=== PATIENT | male | born 1935 | race Caucasian/White ===

== ENCOUNTER 2016-06-05 06:36 | Inpatient (IN) ==
[2016-06-05] MEDS ORDERED: Ipratropium/Albuterol Neb 3 ML ONE ×2 (06:43→13:38)
[2016-06-05] MEDS ORDERED: methylPREDNISolone 125 MG/2 ML VIAL IVP ONE (06:45)
[2016-06-05] MEDS: Ipratropium/Albuterol Neb 3 ML IH ONE ×2 (06:45→07:07)
[2016-06-05 06:59] LABS: Basophils % 0.1 %; Eosinophils # 0.1 K/mcL (0.0-0.6); Hematocrit 39.4 % (37.5-50.1); Immature Granulocytes % 0.2 % (0-4); Lymphocytes # 0.7 K/mcL (0.6-4.6); Mean Corpuscular Hemoglobin 30.8 pg (28.0-33.3); Mean Corpuscular Volume 93.4 fL (83.0-100.0); Mean Platelet Volume 9.4 fL (9.4-12.4); Monocytes # 0.6 K/mcL (0.0-1.3); Monocytes % 4.9 %; Neutrophils # 10.4 K/mcL (1.6-8.9); Platelet Count 183 K/mcL (140-400); Red Blood Count 4.22 M/mcL (4.19-5.50); Red Cell Distribution Width 14.6 % (11.5-14.5); Segmented Neutrophils % 87.8 %
[2016-06-05 07:11] LABS: BUN/Creatinine Ratio 16 (6-26); Blood Urea Nitrogen 14 mg/dL (8-26); Calcium 8.3 mg/dL (8.6-10.8); Carbon Dioxide 22 mEq/L (19-29); Chloride 104 mEq/L (98-109); Glucose 103 mg/dL (70-99); Osmolality,Calculated 285 (280-300); Sodium 137 mEq/L (136-145); eGFR For African Americans > 60 (> 60); eGFR For Non-African Americans > 60 (> 60)
[2016-06-05] MEDS ORDERED: Levofloxacin 750 MG/150 ML 750 MG/150 ML BAG IVPB ONE (07:23)
[2016-06-05] MEDS ORDERED: 0.9 % Sodium Chloride 2,000 ML IV ONE (07:23)
[2016-06-05] MEDS ORDERED: Piperacillin/Tazobactam 3.375 GM in D5% in Water (Mini-Bag+) 100 ML IVPB ONE (07:23)
--- NOTE | 2016-06-05 07:29 | Emergency Department Note ---
Disposition Clinical Impression: Community acquired pneumonia Sepsis Qualifiers: Sepsis type: sepsis due to unspecified organism Qualified Code(s): A41.9 - Sepsis, unspecified organism Disposition: Admitted As Inpatient Condition: Fair Referrals: Macario Yarbrough DO [Primary Care Provider] - Forms: ED Satisfaction Letter Time of Disposition: 09:38 SOB HPI - General Chief Complaint: ED Shortness of Breath/Dyspnea Stated Complaint: ROMELIA Time Seen by Provider: 06/05/16 06:43 Source: patient, family, EMS Mode of arrival: EMS Limitations: no limitations Nursing Notes Reviewed: Yes Vital Signs Reviewed: Yes - History of Present Illness Pt Subjective Complaint: shortness of breath Onset (ago): day(s) (Several days) Severity: severe Consistency/Duration: constant, gradually worsening Improves with: nothing Worsens with: exertion, coughing Known history of: COPD, recurrent pneumonia Associated symptoms: Reports: fever, cough, wheezing, sputum production Treatment prior to arrival: oxygen, bronchodilator Cough present: Yes Cough Description: Productive Cough Frequency: Persistent Sputum production: Yes - Related Data Home oxygen amount: 2 liters Home Medications Medication Instructions Recorded Confirmed Albuterol Sulfate [Albuterol 2 puff IH Q4H PRN 09/12/15 06/05/16 Inhaler] Alprazolam [Xanax 1 MG Tablet] 1 mg PO QID PRN 09/12/15 06/05/16 Atorvastatin Calcium [Lipitor] 80 mg PO DAILY 09/12/15 06/05/16 Cyanocobalamin (Vitamin B-12) 1,000 mcg PO DAILY 09/12/15 06/05/16 [Vitamin B-12] Metformin HCl [Glucophage] 1,000 mg PO BID 09/12/15 06/05/16 Oxycodone HCl/Acetaminophen 1 tab PO Q6H PRN 09/12/15 06/05/16 [Percocet 10-325 mg Tablet] Potassium Chloride [K-Tab ER] 10 meq PO BID 09/12/15 06/05/16 Tamsulosin [Flomax] 0.4 mg PO BID 09/12/15 06/05/16 Allergies Allergy/AdvReac Type Severity Reaction Status Date / Time No Known Allergies Allergy Verified 09/12/15 11:18 All systems ED: reviewed and negative except as stated. Constitutional: Reports: fever, chills ENT ED: Denies: ear pain, throat pain, congestion Cardiovascular: Reports: dyspnea on exertion. Denies: chest pain, palpitations Respiratory: Reports: cough, dyspnea, wheezes Gastrointestinal: Denies: abdominal pain, nausea, vomiting, diarrhea Genitourinary: Denies: urgency, dysuria Musculoskeletal: Denies: back pain Integumentary: Denies: rash Past Medical History - Past Medical History Attestation: Yes The following information was validated with the patient. Source: patient, old records reviewed, obtained from family, nursing notes reviewed Medical history: Reports: cancer, diabetes, hypertension Surgical history: Reports: colostomy Psychiatric history: Reports: anxiety - Social History Smoking Status: Current every day smoker Smokeless Tobacco Status: No Alcohol use: Reports: none Drug use: Reports: none Physical Exam - General Limitations: no limitations General appearance: alert, other (Looks like he does not feel well.) - Head Head exam: atraumatic, normocephalic - Eye Eye exam: Present: normal appearance, PERRL, EOMI - ENT ENT exam: mucous membranes dry, normal external ear exam - Neck Neck exam: Present: normal inspection, full ROM, trachea midline - Chest Chest inspection: Present: normal inspection, symmetric chest wall rise. Absent : tenderness - Respiratory Respiratory exam: Present: respiratory distress (Patient is tachypneic), wheezes (Scattered throughout) - Cardiovascular Cardiovascular exam: Present: normal rhythm, tachycardia, normal heart sounds - Abdominal Exam Abdominal exam: Present: soft, Non-Tender - Extremities Exam Extremities exam: Present: normal inspection, full ROM. Absent: pedal edema - Neurological Exam Neurological exam: Present: alert, oriented X3 - Psychiatric Psychiatric exam: Present: normal affect, normal mood - Skin Skin exam: Present: warm, dry. Absent: rash Course Course Narrative: I assumed care of the patient at change of shift. Patient presents with fevers , chills, cough, shortness of breath and wheezing. Although his presenting temperature was normal he has a fever now and feels very hot. He is tachycardic but his blood pressure is good. His mental status is good. Chest x -ray shows left lower lobe pneumonia. I believe this is consistent with his presentation. Given the fever and the white count and the tachycardia I believe that this represents sepsis as well. I added sepsis labs to the orders that were already in place. I ordered triple antibiotic coverage. I will arrange to admit the patient to the hospital. - Reevaluation(s) Reevaluation #1: Patient is improving with treatment. Heart rate down to 110. He looks better and he says he feels better. Time: 09:36 - Consultations Consultation #1: I discussed the case with the hospitalist, Dr. Peace. We discussed patient's presentation and treatment to this point. She has accepted the patient for admission to the hospital. Time: 09:36 Vital Signs Temperature 98.5 F 06/05/16 06:42 Pulse Rate 131 06/05/16 06:42 Respiratory Rate 25 06/05/16 06:42 Blood Pressure 107/82 06/05/16 06:42 O2 Sat by Pulse Oximetry 97 06/05/16 06:42 Temperature 100.9 F H 06/05/16 07:30 Pulse Rate 118 06/05/16 08:55 Respiratory Rate 32 06/05/16 08:55 Blood Pressure 99/76 06/05/16 08:55 O2 Sat by Pulse Oximetry 93 L 06/05/16 08:55 Oxygen Delivery Oxygen Delivery Nasal Cannula Shortness of Breath/Dyspnea - Medical Records Medical records reviewed: Yes I reviewed the patient's medical records. - Lab Data Lab results reviewed: Yes I reviewed the patient's lab results. Result diagrams: 06/05/16 06:51 06/05/16 06:51 Lab Results 06/05/16 06/05/16 06/05/16 Range/Units 06:51 06:51 06:51 WBC 11.8 H (4.3-11.1) K/mcL RBC 4.22 (4.19-5.50) M/mcL Hgb 13.0 (12.9-16.9) g/dL Hct 39.4 (37.5-50.1) % MCV 93.4 (83.0-100.0) fL MCH 30.8 (28.0-33.3) pg MCHC 33.0 (31.6-35.5) g/dL RDW 14.6 H (11.5-14.5) % Plt Count 183 (140-400) K/mcL MPV 9.4 (9.4-12.4) fL Immature Gran % 0.2 (0-4) % Seg Neutrophils % 87.8 % Lymphocytes % 6.0 % Monocytes % 4.9 % Eosinophils % 1.0 % Basophils % 0.1 % Neutrophils # 10.4 H (1.6-8.9) K/mcL Lymphocytes # 0.7 (0.6-4.6) K/mcL Monocytes # 0.6 (0.0-1.3) K/mcL Eosinophils # 0.1 (0.0-0.6) K/mcL Basophils # 0.0 (0.0-0.2) K/mcL Platelet Estimate Normal (Normal) Sodium 137 (136-145) mEq/L Potassium 4.0 (3.5-4.5) mEq/L Chloride 104 (98-109) mEq/L Carbon Dioxide 22 (19-29) mEq/L BUN 14 (8-26) mg/dL Creatinine 0.88 (0.72-1.25) mg/dL Est GFR ( Amer) > 60 (> 60) Est GFR (Non-Af Amer) > 60 (> 60) BUN/Creatinine Ratio 16 (6-26) Glucose 103 H (70-99) mg/dL Calculated Osmolality 285 (280-300) Lactic Acid (0.5-2.2) mmol/L Calcium 8.3 L (8.6-10.8) mg/dL Total Bilirubin (0.2-1.2) mg/dL Direct Bilirubin (0.0-0.5) mg/dL Indirect Bilirubin (0.0-1.2) mg/dL AST (5-34) Units/L ALT (0-55) Units/L Alkaline Phosphatase (38-126) Units/L Troponin I (0-0.03) ng/mL B-Natriuretic Peptide 63 (0-100) pg/mL Serum Total Protein (6.0-8.3) g/dL Albumin (3.5-5.0) g/dL Globulin (2.4-3.5) g/dL Albumin/Globulin Ratio (1.1-2.2) Urine Color (Yellow) Urine Clarity (Clear) Urine pH (5.0-8.0) pH Units Ur Specific [place] (1.010-1.025) Urine Protein (Neg-Trace) mg/dL Urine Glucose (UA) (Normal) mg/dL Urine Ketones (Negative) mg/dL Urine Blood (Negative) Urine Nitrite (Negative) Urine Bilirubin (Negative) Urine Urobilinogen (Normal) mg/dL Ur Leukocyte Esterase (Negative) Ur Culture Indicated? (NO) 06/05/16 06/05/16 06/05/16 Range/Units 08:00 08:00 08:00 WBC (4.3-11.1) K/mcL RBC (4.19-5.50) M/mcL Hgb (12.9-16.9) g/dL Hct (37.5-50.1) % MCV (83.0-100.0) fL MCH (28.0-33.3) pg MCHC (31.6-35.5) g/dL RDW (11.5-14.5) % Plt Count (140-400) K/mcL MPV (9.4-12.4) fL Immature Gran % (0-4) % Seg Neutrophils % % Lymphocytes % % Monocytes % % Eosinophils % % Basophils % % Neutrophils # (1.6-8.9) K/mcL Lymphocytes # (0.6-4.6) K/mcL Monocytes # (0.0-1.3) K/mcL Eosinophils # (0.0-0.6) K/mcL Basophils # (0.0-0.2) K/mcL Platelet Estimate (Normal) Sodium (136-145) mEq/L Potassium (3.5-4.5) mEq/L Chloride (98-109) mEq/L Carbon Dioxide (19-29) mEq/L BUN (8-26) mg/dL Creatinine (0.72-1.25) mg/dL Est GFR ( Amer) (> 60) Est GFR (Non-Af Amer) (> 60) BUN/Creatinine Ratio (6-26) Glucose (70-99) mg/dL Calculated Osmolality (280-300) Lactic Acid 2.1 (0.5-2.2) mmol/L Calcium (8.6-10.8) mg/dL Total Bilirubin 0.6 (0.2-1.2) mg/dL Direct Bilirubin 0.3 (0.0-0.5) mg/dL Indirect Bilirubin 0.3 (0.0-1.2) mg/dL AST 19 (5-34) Units/L ALT 15 (0-55) Units/L Alkaline Phosphatase 48 (38-126) Units/L Troponin I 0.03 (0-0.03) ng/mL B-Natriuretic Peptide (0-100) pg/mL Serum Total Protein 6.9 (6.0-8.3) g/dL Albumin 3.6 (3.5-5.0) g/dL Globulin 3.3 (2.4-3.5) g/dL Albumin/Globulin Ratio 1.1 (1.1-2.2) Urine Color (Yellow) Urine Clarity (Clear) Urine pH (5.0-8.0) pH Units Ur Specific [place] (1.010-1.025) Urine Protein (Neg-Trace) mg/dL Urine Glucose (UA) (Normal) mg/dL Urine Ketones (Negative) mg/dL Urine Blood (Negative) Urine Nitrite (Negative) Urine Bilirubin (Negative) Urine Urobilinogen (Normal) mg/dL Ur Leukocyte Esterase (Negative) Ur Culture Indicated? (NO) 06/05/16 Range/Units 08:12 WBC (4.3-11.1) K/mcL RBC (4.19-5.50) M/mcL Hgb (12.9-16.9) g/dL Hct (37.5-50.1) % MCV (83.0-100.0) fL MCH (28.0-33.3) pg MCHC (31.6-35.5) g/dL RDW (11.5-14.5) % Plt Count (140-400) K/mcL MPV (9.4-12.4) fL Immature Gran % (0-4) % Seg Neutrophils % % Lymphocytes % % Monocytes % % Eosinophils % % Basophils % % Neutrophils # (1.6-8.9) K/mcL Lymphocytes # (0.6-4.6) K/mcL Monocytes # (0.0-1.3) K/mcL Eosinophils # (0.0-0.6) K/mcL Basophils # (0.0-0.2) K/mcL Platelet Estimate (Normal) Sodium (136-145) mEq/L Potassium (3.5-4.5) mEq/L Chloride (98-109) mEq/L Carbon Dioxide (19-29) mEq/L BUN (8-26) mg/dL Creatinine (0.72-1.25) mg/dL Est GFR ( Amer) (> 60) Est GFR (Non-Af Amer) (> 60) BUN/Creatinine Ratio (6-26) Glucose (70-99) mg/dL Calculated Osmolality (280-300) Lactic Acid (0.5-2.2) mmol/L Calcium (8.6-10.8) mg/dL Total Bilirubin (0.2-1.2) mg/dL Direct Bilirubin (0.0-0.5) mg/dL Indirect Bilirubin (0.0-1.2) mg/dL AST (5-34) Units/L ALT (0-55) Units/L Alkaline Phosphatase (38-126) Units/L Troponin I (0-0.03) ng/mL B-Natriuretic Peptide (0-100) pg/mL Serum Total Protein (6.0-8.3) g/dL Albumin (3.5-5.0) g/dL Globulin (2.4-3.5) g/dL Albumin/Globulin Ratio (1.1-2.2) Urine Color Yellow (Yellow) Urine Clarity Clear (Clear) Urine pH 6.0 (5.0-8.0) pH Units Ur Specific [place] 1.018 (1.010-1.025) Urine Protein Negative (Neg-Trace) mg/dL Urine Glucose (UA) Normal (Normal) mg/dL Urine Ketones Negative (Negative) mg/dL Urine Blood Negative (Negative) Urine Nitrite Negative (Negative) Urine Bilirubin Negative (Negative) Urine Urobilinogen Normal (Normal) mg/dL Ur Leukocyte Esterase Negative (Negative) Ur Culture Indicated? NO (NO) - Radiology Data Radiology results reviewed: Yes I reviewed the patient's radiology results. - EKG Data EKG attestation: Yes I reviewed and interpreted this EKG. EKG shows normal: Reports: sinus rhythm, axis, intervals, QRS complexes, ST-T waves Rate: Reports: tachycardia Interpretation: Reports: other (Sinus tachycardia without evidence of ischemic changes.)
[2016-06-05 07:47] LABS: Platelet Estimate Normal (Normal)
[2016-06-05] MEDS ORDERED: Vancomycin (wt based) 1,000 MG VIAL IV SCH (08:00)
[2016-06-05] MEDS ORDERED: Vancomycin 1,250 MG in D5% in Water 250 ML IVPB ONE (08:00)
[2016-06-05 08:21] LABS: Albumin 3.6 g/dL (3.5-5.0); Albumin/Globulin Ratio 1.1 (1.1-2.2); Bilirubin,Direct 0.3 mg/dL (0.0-0.5); Bilirubin,Indirect 0.3 mg/dL (0.0-1.2); Bilirubin,Total 0.6 mg/dL (0.2-1.2); Globulin 3.3 g/dL (2.4-3.5); Total Protein 6.9 g/dL (6.0-8.3)
[2016-06-05 08:23] LABS: Bilirubin,Urine Negative (Negative); Blood,Urine Negative (Negative); Clarity,Urine Clear (Clear); Color,Urine Yellow (Yellow); Glucose,Urine (UA) Normal (Normal); Ketones,Urine Negative (Negative); Leukocyte Esterase,Urine Negative (Negative); Nitrite,Urine Negative (Negative); Protein,Urine Negative (Neg-Trace); Specific Gravity,Urine 1.018 (1.010-1.025); Urobilinogen,Urine Normal (Normal)
[2016-06-05] MEDS ORDERED: Mag Hydrox/Al Hydrox/Simeth 30 ML UDC PO PRN (12:29)
[2016-06-05] MEDS ORDERED: Naloxone 0.4 MG/ML INJ IVP PRN (12:29)
[2016-06-05] MEDS ORDERED: *HR* HYDROcodone/Acet 5/325 mg TABLET PO PRN (12:29)
[2016-06-05] MEDS ORDERED: Ondansetron 4 MG/2 ML VIAL IVP PRN (12:29)
[2016-06-05] MEDS ORDERED: Acetaminophen 325 MG TABLET PO PRN (12:29)
[2016-06-05] MEDS ORDERED: MOM Conc 10 ML UD.LIQ PO PRN (12:29)
[2016-06-05] MEDS ORDERED: GuaiFENesin Liq 200 MG/10 ML UDC PO PRN (12:32)
[2016-06-05] MEDS ORDERED: Albuterol 2.5 MG/3 ML NEBULIZER IH PRN (12:34)
[2016-06-05] MEDS ORDERED: Dextrose Gel 15 GM PO PRN ×2 (12:37)
[2016-06-05] MEDS ORDERED: *HR* Dextrose 50 % in Water (Syg) 50 ML SYRINGE IVP PRN (12:37)
[2016-06-05] MEDS ORDERED: D5% in Water 1,000 ML IV PRN (12:37)
--- NOTE | 2016-06-05 12:45 | Internal Med History&Physical ---
<Maya Ny - Last Filed: 06/05/16 19:05> Date of Encounter: 06/05/16 Time of Encounter: 12:05 Assessment and Plan (1) Sepsis Current visit: Yes Status: Acute Pt arrived with fever since last pm, tachycardia, rate 137 initially, however has slowed to low 100s, and CAP. Pt has received triple antibiotic coverage in ED and IV fluids. Pt is afebrile during exam. Blood cultures and lactic were drawn in the ED and are pending. Gentle hydration 0.9NS Levaquin 750mg IV daily 02 titrate for sats > 92% Monitor labs Monitor VS q4h Qualifiers: Sepsis type: sepsis due to unspecified organism Qualified Code(s): A41.9 - Sepsis, unspecified organism (2) Community acquired pneumonia Current visit: Yes Status: Acute Pt was initially diagnosed with pneumonia 2 mos ago and feels that he has never fully recovered. Todays chest xray shows persistant R midlung opacification and is unchanged from previous, and new LLL infiltrate. Pt has felt weak , fatigued , and had a poor appetite for the last month. Pt has intermittent cough with scant production of green/yellow sputum. He denies fever prior to last night and denies n/v/d, chest pain or dyspnea. Inspiratory and expiratory wheezing is heard in all ant and post lung almaraz. Pt states that he did have a flu vaccine and a pneumonia vaccine about 2 mos ago. He still smokes 1 1/2 PPD. Pt traveled to [facility] within the last week to 10 days, will check urine for legionella and strep pneumo. Plan as above Duoneb q4h Albuterol q2h prn Guiafenesin prn Continuous pulse ox Continuous telemetry (3) Acute respiratory failure with hypoxia Current visit: Yes Status: Acute PT has required 02 at 5L to maintain sats. Will continue to monitor and attempt to wean. Continuous pulse oximetry (4) Diabetes mellitus Current visit: Yes Status: Acute A1c 5.9% last September. Pt takes Glucophage daily and appears to have good control of his blood sugars. A1c Accucheck achs Sliding scale insulin coverage Qualifiers: Diabetes mellitus type: type 2 Diabetes mellitus complication status: without complication Diabetes mellitus nursing home insulin use: without nursing home use Qualified Code(s): E11.9 - Type 2 diabetes mellitus without complications (5) Generalized weakness Current visit: No Status: Acute Fall precautions PT/OT (6) COPD (chronic obstructive pulmonary disease) Current visit: No Status: Chronic Plan as above Qualifiers: COPD type: COPD with acute lower respiratory infection Qualified Code(s): J44.0 - Chronic obstructive pulmonary disease with acute lower respiratory infection (7) Tobacco abuse Current visit: Yes Status: Acute Internal Medicine - H&P: HPI Chief complaint: Pneumonia Admitted From: Home Plans for Post Hospital Care: Home History of present illness: Mr. Arvizu is a 80 year old male with a recent history of pneumonia, also of COPD, DM, lung cancer, colon cancer, and diastolic heart failure. He was diagnosed with pneumonia about 2 mos ago and states that he has never fully recovered. He lives at home alone and is very independent, however, has felt fatigued, weak, and had a poor appetite for the last month. He still smokes 1.5 packs of cigarettes daily. He denies fever until last pm and today and reports an intermittent cough with scant amount of sputum, either clear or yellow/ green. He denies n/v/d, abd pain, chest pain or back pain. Today he presents with fever of 100.9, tachycardia, stable blood pressure, and new LLL infiltrate , so the diagnosis of sepsis was made by ED physician. His EKG shows sinus tach and he maintains his sats around 95% on 5L . Past Med Surg Social Fam HX - Past Medical History Medical history: cancer, diabetes, hypertension Psychiatric history: anxiety - Past Surgical History Surgical History: colostomy - Social History Smoking Status: Current every day smoker Smokeless Tobacco Status: No Alcohol use: none Drug use: none - Family History Mother Living Status: Hx Family Cardiac Disorders: Yes Internal Medicine - H&P: Meds Albuterol Sulfate [Albuterol Inhaler] 2 puff IH Q4H PRN 09/12/15 [History] Alprazolam [Xanax 1 MG Tablet] 1 mg PO QID PRN 09/12/15 [History] Atorvastatin Calcium [Lipitor] 80 mg PO DAILY 09/12/15 [History] Cyanocobalamin (Vitamin B-12) [Vitamin B-12] 1,000 mcg PO DAILY 09/12/15 [ History] Metformin HCl [Glucophage] 1,000 mg PO BID 09/12/15 [History] Oxycodone HCl/Acetaminophen [Percocet 10-325 mg Tablet] 1 tab PO Q6H PRN [History] Potassium Chloride [K-Tab ER] 10 meq PO BID 09/12/15 [History] Tamsulosin [Flomax] 0.4 mg PO BID 09/12/15 [History] Allergies No Known Allergies Allergy (Verified 09/12/15 11:18) All Systems PM: A 10-system review of systems was performed and is negative for pertinent findings except as documented above in the HPI. - Constitutional Constitutional: fatigue, fever(s), weakness, no chills, no excessive sweating, no falls, no lethargy, no night sweats, no weight loss - Cardiovascular Cardiovascular ROS IM: no chest pain, no diaphoresis, no dyspnea on exertion, no edema, no lightheadedness - Respiratory Respiratory: cough, wheezing, chest congestion, no pain on inspiration, no excessive phlegm production, no pain with cough - Gastrointestinal Gastrointestinal: no abdominal pain, no diarrhea, no nausea, no vomiting - Musculoskeletal Musculoskeletal ROS IM: no back pain, no muscle cramps, no muscle weakness - Constitutional Vitals: Temp Pulse Resp BP Pulse Ox 100.9 F H 104 30 129/70 95 06/05/16 07:30 06/05/16 11:14 06/05/16 11:14 06/05/16 11:14 06/05/16 11:14 General appearance: Present: cooperative, A&O X 3, pleasant, no acute distress, answers questions appropriately - Head Head exam: Present: normal inspection - Eye Eye exam: Present: conjuntiva pink - ENT ENT exam: Present: mucous membranes moist - Neck Neck exam general surgery: Absent: lymphadenopathy, tenderness - Respiratory Respiratory exam: Present: wheezes. Absent: chest wall tenderness - Expanded Respiratory Exam Location: wheezes: Left, Right, Upper, Lower - Cardiovascular Cardiovascular exam: Present: RRR, +S1, +S2 - GI/Abdominal GI/Abdominal exam: Present: hyperactive bowel sounds Additional comments: Colostomy LLQ. Due to cancer 40+ years ago. - Extremities Exam Extremities exam: Present: full ROM, normal capillary refill, normal inspection , warm, radial pulses palpable and symetrical. Absent: pedal edema, tenderness - Neurological Exam Neurological exam: Present: alert, oriented X3, no focal deficits Internal Med - H&P Results - Labs CBC & Chem 7: 06/05/16 06:51 06/05/16 06:51 Labs: Short CBC 06/05/16 Range/Units 06:51 WBC 11.8 H (4.3-11.1) K/mcL Hgb 13.0 (12.9-16.9) g/dL Hct 39.4 (37.5-50.1) % Plt Count 183 (140-400) K/mcL Neutrophils # 10.4 H (1.6-8.9) K/mcL BMP 06/05/16 06:51 Sodium 137 Potassium 4.0 Chloride 104 Carbon Dioxide 22 BUN 14 Creatinine 0.88 Glucose 103 H Calcium 8.3 L Cardiac Enzymes 06/05/16 Range/Units 08:00 Troponin I 0.03 (0-0.03) ng/mL Liver Function 06/05/16 Range/Units 08:00 Total Bilirubin 0.6 (0.2-1.2) mg/dL Direct Bilirubin 0.3 (0.0-0.5) mg/dL AST 19 (5-34) Units/L ALT 15 (0-55) Units/L Alkaline Phosphatase 48 (38-126) Units/L Albumin 3.6 (3.5-5.0) g/dL Urine 06/05/16 Range/Units 08:12 Urine Color Yellow (Yellow) Urine Clarity Clear (Clear) Urine pH 6.0 (5.0-8.0) pH Units Ur Specific [place] 1.018 (1.010-1.025) Urine Protein Negative (Neg-Trace) mg/dL Urine Glucose (UA) Normal (Normal) mg/dL - EKG Data Prior EKG available for review: yes When compared to previous EKG: there is no significant change EKG comments: 06/05/16 12:48 Sinus tachycardia, rate 137 AL int 149 QRS 104 QT 299 QTc 379 - Impressions ITS Impressions Chest X-Ray 06/05/16 06:43 IMPRESSION: New left lower lobe infiltrate possibly representing pneumonia D/ / Donte Goldsmith MD / Donte Goldsmith MD Interpreting Provider: Donte Goldsmith MD <Tamra Winslow - Last Filed: 06/06/16 07:30> Date of Encounter: 06/06/16 Internal Medicine - H&P: HPI History of present illness: Mr. Arvizu is a 80 year old male All Systems PM: A 10-system review of systems was performed and is negative for pertinent findings except as documented above in the HPI. - Constitutional Vitals: Temp Pulse Resp BP Pulse Ox 97.9 F 107 22 137/78 93 L 06/06/16 04:34 06/06/16 04:34 06/06/16 04:34 06/06/16 04:34 06/06/16 04:34 Internal Med - H&P Results - Labs CBC & Chem 7: 06/06/16 05:34 06/06/16 05:34 Labs: Short CBC 06/06/16 Range/Units 05:34 WBC 10.4 (4.3-11.1) K/mcL Hgb 11.2 L D (12.9-16.9) g/dL Hct 35.1 L (37.5-50.1) % Plt Count 171 (140-400) K/mcL BMP 06/06/16 05:34 Sodium 141 Potassium 3.5 Chloride 111 H Carbon Dioxide 19 BUN 16 Creatinine 0.81 Glucose 111 H Calcium 8.0 L - Attending Attestation I examined this patient and reviewed laboratory, imaging and all diagnostic data on 06/05/16. My medical decision-making was reviewed with KADEN Ny. I agree with the documented findings, disposition and treatment plan as described above. 80-year-old male with pmh DM, lung cancer, colon cancer, and diastolic heart failure. He presented with shortness of breath and productive cough. In our ED, he was hypoxemic, tachycardic and tachypneic. WBC was 11.8. He was placed in 5 L of oxygen via nasal cannula. Chest x-ray showed left lower lobe pneumonia. He was admitted with sepsis source PNA. continue IV levaquin and IV fluids. CT chest ordered. blood cultures pending.
[2016-06-05 13:02] LABS: Hemoglobin A1C 5.8 %
[2016-06-05] MEDS ORDERED: D5% in Water 1,000 ML IVC PRN (13:21)
[2016-06-05] MEDS ORDERED: Ipratropium/Albuterol Neb 3 ML IH ONE (13:34)
[2016-06-05] MEDS: 0.9 % Sodium Chloride 1,000 ML IVC SCH (13:40)
[2016-06-05] MEDS: Nicotine 14 MG PATCH.TD24 TD SCH (15:20)
[2016-06-05] MEDS: Budesonide Neb 0.5 MG/2 ML IH SCH ×2 (16:30→20:07)
[2016-06-05] MEDS: Ipratropium/Albuterol Neb 3 ML IH SCH ×3 (16:32→23:47)
[2016-06-05] MEDS: Insulin LISPRO 300 UNITS/3 ML VIAL SQ SCH ×2 (17:05→21:08)
--- NOTE | 2016-06-05 20:33 | Electrocardiograph Report ---
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
[2016-06-05] MEDS: ALPRAZolam 1 MG TABLET PO PRN (21:07)
[2016-06-06] MEDS: Ipratropium/Albuterol Neb 3 ML IH SCH ×3 (04:19→10:55)
[2016-06-06 06:29] LABS: Hematocrit 35.1 % (37.5-50.1); Mean Corpuscular HGB Conc 31.9 g/dL (31.6-35.5); Mean Corpuscular Hemoglobin 30.5 pg (28.0-33.3); Mean Corpuscular Volume 95.6 fL (83.0-100.0); Mean Platelet Volume 9.5 fL (9.4-12.4); Platelet Count 171 K/mcL (140-400); Red Blood Count 3.67 M/mcL (4.19-5.50); Red Cell Distribution Width 14.9 % (11.5-14.5)
[2016-06-06 06:31] LABS: BUN/Creatinine Ratio 20 (6-26); Blood Urea Nitrogen 16 mg/dL (8-26); Carbon Dioxide 19 mEq/L (19-29); Chloride 111 mEq/L (98-109); Glucose 111 mg/dL (70-99); Osmolality,Calculated 294 (280-300); Potassium 3.5 mEq/L (3.5-4.5); Sodium 141 mEq/L (136-145); eGFR For African Americans > 60 (> 60); eGFR For Non-African Americans > 60 (> 60)
[2016-06-06] MEDS: 0.9 % Sodium Chloride 1,000 ML IVC SCH (06:32)
[2016-06-06 06:42] LABS: Hemoglobin 11.2 g/dL (12.9-16.9)
[2016-06-06] MEDS: Budesonide Neb 0.5 MG/2 ML IH SCH ×2 (07:35→20:42)
[2016-06-06] MEDS: Insulin LISPRO 300 UNITS/3 ML VIAL SQ SCH ×4 (08:01→21:40)
[2016-06-06] MEDS: Cyanocobalamin (B-12) 1,000 MCG TABLET PO SCH (08:11)
[2016-06-06] MEDS: ALPRAZolam 1 MG TABLET PO PRN ×2 (08:11→21:43)
[2016-06-06] MEDS: Nicotine 14 MG PATCH.TD24 TD SCH (08:11)
[2016-06-06] MEDS: Levofloxacin 750 MG/150 ML 750 MG/150 ML BAG IVPB SCH (08:11)
[2016-06-06 08:36] LABS: Anisocytosis 1+ (Not Present); Lymphocytes # 1.3 K/mcL (0.6-4.6); Monocytes # 0.4 K/mcL (0.0-1.3); Neutrophils # 8.7 K/mcL (1.6-8.9); Platelet Estimate Normal (Normal)
[2016-06-06 08:37] LABS: Microcytosis Present (Not Present)
--- NOTE | 2016-06-06 09:45 | Internal Med Progress Note ---
<Donte Rasmussen - Last Filed: 06/06/16 09:42> Date of Encounter: 06/06/16 Time of Encounter: 09:43 - Assessment and plan (1) Acute respiratory failure with hypoxia Current Visit: Yes Status: Acute Assessment and plan: Patient is requiring 2 L of oxygen at this time. Normally only uses oxygen at night. Likely related to his pneumonia and previous history of lung cancer with radiation treatment and scarring, however the patient is tachycardic, has history of malignancy, presented with shortness of breath, and recently had a long distance car ride so pulmonary embolism cannot be excluded this time. We will obtain a CTA. (2) Sepsis Current Visit: Yes Status: Acute Assessment and plan: Patient has leukocytosis and tachycardia on presentation with pneumonia source. Initial lactate was negative. Blood cultures, strep and Legionella antigen pending. On antibiotics with Levaquin. Qualifiers: Sepsis type: sepsis due to unspecified organism Qualified Code(s): A41.9 - Sepsis, unspecified organism (3) Community acquired pneumonia Current Visit: Yes Status: Acute Assessment and plan: Agent has left lower lobe infiltrate on chest x-ray concerning for community- acquired pneumonia. White count slightly improved. Continue Levaquin. Cultures and strep and legionella antigens are pending. (4) COPD (chronic obstructive pulmonary disease) Current Visit: No Status: Chronic Assessment and plan: Does not appear to be in acute exacerbation. Continue supplemental oxygen and bronchodilators. Qualifiers: COPD type: COPD with acute lower respiratory infection Qualified Code(s): J44.0 - Chronic obstructive pulmonary disease with acute lower respiratory infection (5) Diabetes mellitus Current Visit: Yes Status: Acute Assessment and plan: Under good control. Continue sliding scale insulin. Qualifiers: Diabetes mellitus type: type 2 Diabetes mellitus complication status: without complication Diabetes mellitus chcf insulin use: without chcf use Qualified Code(s): E11.9 - Type 2 diabetes mellitus without complications (6) Lung cancer, middle lobe Current Visit: No Status: Chronic Assessment and plan: Apparently in remission. Patient follows at [facility]. Patient sees an oncologist every 3 months and his CAT scan at this time. Was treated with chemotherapy and radiation in the past. (7) DVT prophylaxis Current Visit: Yes Status: Acute Assessment and plan: Lovenox 30 mg subcutaneous daily - Subjective Interval history: Patient seen and examined at bedside. Patient states he feels better. He feels shortness of breath and cough is improved. He denies any productive cough or hemoptysis. He denies any fever, chills, chest pain. - Constitutional Vitals: Temp Pulse Resp BP Pulse Ox 97.8 F 107 16 136/82 98 06/06/16 07:30 06/06/16 07:30 06/06/16 07:37 06/06/16 07:30 06/06/16 07:37 General appearance: Present: cooperative, A&O X 3, pleasant, no acute distress, answers questions appropriately - Respiratory Respiratory exam: Present: rhonchi (Left Lower lobe). Absent: respiratory distress, wheezes, tachypnea - Cardiovascular Cardiovascular exam: Present: RRR. Absent: gallop, rubs, systolic murmur - GI/Abdominal GI/Abdominal exam: Present: normal bowel sounds, soft. Absent: distended, tenderness - Extremities Exam Extremities exam: Absent: calf tenderness, pedal edema, tenderness - Neurological Exam Neurological exam: Present: alert, CN II-XII intact, oriented X3, no focal deficits Internal Medicine: Result - Labs CBC & Chem 7: 06/06/16 05:34 06/06/16 05:34 Labs: Short CBC 06/06/16 Range/Units 05:34 WBC 10.4 (4.3-11.1) K/mcL Hgb 11.2 L D (12.9-16.9) g/dL Hct 35.1 L (37.5-50.1) % Plt Count 171 (140-400) K/mcL Neutrophils # 8.7 (1.6-8.9) K/mcL BMP 06/06/16 05:34 Sodium 141 Potassium 3.5 Chloride 111 H Carbon Dioxide 19 BUN 16 Creatinine 0.81 Glucose 111 H Calcium 8.0 L Consult Discharge Plan - Plan Referrals: Macario Yarbrough DO [Primary Care Provider] - <Declan Meyers - Last Filed: 06/06/16 16:32> Date of Encounter: 06/06/16 - Assessment and plan (1) Acute respiratory failure with hypoxia Current Visit: Yes Status: Acute (2) Sepsis Current Visit: Yes Status: Acute Qualifiers: Sepsis type: sepsis due to unspecified organism Qualified Code(s): A41.9 - Sepsis, unspecified organism (3) Pneumonia Current Visit: Yes Status: Acute Qualifiers: Pneumonia type: due to unspecified organism Laterality: left Lung location: lower lobe of lung Qualified Code(s): J18.1 - Lobar pneumonia, unspecified organism (4) Diabetes mellitus Current Visit: Yes Status: Acute Qualifiers: Diabetes mellitus type: type 2 Diabetes mellitus complication status: without complication Diabetes mellitus chcf insulin use: without chcf use Qualified Code(s): E11.9 - Type 2 diabetes mellitus without complications (5) Tobacco abuse Current Visit: Yes Status: Acute (6) Tachycardia Current Visit: Yes Status: Acute (7) Hypertension Current Visit: No Status: Chronic Qualifiers: Hypertension type: essential hypertension Qualified Code(s): I10 - Essential (primary) hypertension - Constitutional Vitals: Temp Pulse Resp BP Pulse Ox 98 F 120 18 164/86 95 06/06/16 15:58 06/06/16 15:58 06/06/16 15:58 06/06/16 15:58 06/06/16 15:58 Internal Medicine: Result - Labs CBC & Chem 7: 06/06/16 05:34 06/06/16 05:34 - Attending Attestation I examined this patient and my medical decision-making was reviewed with the Resident Physician on 06/06/16. I agree with the documented findings, disposition and treatment plan as described except to the extent set forth below. Mr. Arvizu is currently admitted for acute hypoxic respiratory failure and acute CAP. He remains moderate to high risk due to potential for worsening respiratory status and sepsis. Mr. Arvizu is up in the chair. He feels OK at this time. No fever. Dyspnea feels OK while on oxygen. Appetite OK. Exam Alert. Comfortable Heart reg - tachycardic, sinus Lungs diminished but clear currently. No edema Abd soft I/P 1. Acute hypoxic resp failure 2. CAP 3. Hx lung cancer on R - follows in [place] 4. HTN Further diagnoses and plan as above.
[2016-06-06] MEDS: Levalbuterol Neb 0.63 MG/3 ML IH SCH ×2 (15:56→20:57)
[2016-06-07] MEDS: Levalbuterol Neb 0.63 MG/3 ML IH SCH ×3 (00:50→10:20)
[2016-06-07 06:05] LABS: Basophils % 0.2 %; Eosinophils # 0.1 K/mcL (0.0-0.6); Eosinophils % 0.8 %; Hematocrit 38.8 % (37.5-50.1); Hemoglobin 12.6 g/dL (12.9-16.9); Immature Granulocytes % 0.3 % (0-4); Lymphocytes # 1.1 K/mcL (0.6-4.6); Lymphocytes % 12.2 %; Mean Corpuscular HGB Conc 32.5 g/dL (31.6-35.5); Mean Corpuscular Hemoglobin 31.6 pg (28.0-33.3); Mean Corpuscular Volume 97.2 fL (83.0-100.0); Mean Platelet Volume 10.3 fL (9.4-12.4); Monocytes # 0.7 K/mcL (0.0-1.3); Monocytes % 7.9 %; Neutrophils # 7.1 K/mcL (1.6-8.9); Nucleated Red Blood Cells 0.2 /100 WBC (0); Platelet Count 157 K/mcL (140-400); Red Blood Count 3.99 M/mcL (4.19-5.50); Red Cell Distribution Width 15.5 % (11.5-14.5); Segmented Neutrophils % 78.6 %
[2016-06-07 06:11] LABS: BUN/Creatinine Ratio 15 (6-26); Blood Urea Nitrogen 12 mg/dL (8-26); Calcium 8.6 mg/dL (8.6-10.8); Carbon Dioxide 21 mEq/L (19-29); Chloride 108 mEq/L (98-109); Glucose 133 mg/dL (70-99); Osmolality,Calculated 288 (280-300); Potassium 3.8 mEq/L (3.5-4.5); Sodium 138 mEq/L (136-145); eGFR For African Americans > 60 (> 60); eGFR For Non-African Americans > 60 (> 60)
[2016-06-07] MEDS ORDERED: *HR* Enoxaparin 40 MG/0.4 ML SYRINGE SQ SCH (07:00)
[2016-06-07 07:37] VITALS: BP 133/80
[2016-06-07] MEDS: Insulin LISPRO 300 UNITS/3 ML VIAL SQ SCH (07:59)
[2016-06-07] MEDS: Cyanocobalamin (B-12) 1,000 MCG TABLET PO SCH (08:04)
[2016-06-07] MEDS: Levofloxacin 750 MG/150 ML 750 MG/150 ML BAG IVPB SCH (08:05)
[2016-06-07] MEDS: ALPRAZolam 1 MG TABLET PO PRN (08:24)
[2016-06-07] MEDS: Nicotine 14 MG PATCH.TD24 TD SCH (08:24)
--- NOTE | 2016-06-07 09:02 | Discharge Summary ---
<Donte Rasmussen - Last Filed: 06/07/16 10:33> Date of Encounter: 06/07/16 Time of Encounter: 08:59 - Discharge Diagnosis (1) Acute respiratory failure with hypoxia Priority: Primary Status: Acute (2) Sepsis Priority: Primary Status: Resolved Qualifiers: Sepsis type: sepsis due to unspecified organism Qualified Code(s): A41.9 - Sepsis, unspecified organism (3) Community acquired pneumonia Priority: Primary Status: Acute (4) COPD (chronic obstructive pulmonary disease) Priority: Secondary Status: Chronic Qualifiers: COPD type: COPD with acute lower respiratory infection Qualified Code(s): J44.0 - Chronic obstructive pulmonary disease with acute lower respiratory infection (5) Diabetes mellitus Priority: Secondary Status: Chronic Qualifiers: Diabetes mellitus type: type 2 Diabetes mellitus complication status: without complication Diabetes mellitus detention insulin use: without detention use Qualified Code(s): E11.9 - Type 2 diabetes mellitus without complications (6) Lung cancer, middle lobe Priority: Secondary Status: Chronic (7) DVT prophylaxis Priority: Secondary Status: Acute - Discharge Medications Prescriptions: Levofloxacin [Levaquin] 750 mg PO DAILY #5 tablet Home Medications: Albuterol Sulfate [Albuterol Inhaler] 2 puff IH Q4H PRN 09/12/15 [History] Alprazolam [Xanax 1 MG Tablet] 1 mg PO QID PRN 09/12/15 [History] Atorvastatin Calcium [Lipitor] 80 mg PO DAILY 09/12/15 [History] Cyanocobalamin (Vitamin B-12) [Vitamin B-12] 1,000 mcg PO DAILY 09/12/15 [ History] Metformin HCl [Glucophage] 1,000 mg PO BID 09/12/15 [History] Oxycodone HCl/Acetaminophen [Percocet 10-325 mg Tablet] 1 tab PO Q6H PRN [History] Potassium Chloride [K-Tab ER] 10 meq PO BID 09/12/15 [History] Tamsulosin [Flomax] 0.4 mg PO BID 09/12/15 [History] Levofloxacin [Levaquin] 750 mg PO DAILY #5 tablet 06/07/16 [Rx] Allergies/Adverse Reactions: Allergies No Known Allergies Allergy (Verified 09/12/15 11:18) Date of admission: 06/06/16 14:17 Primary care physician: Naveen Ballesteros Discharging clinician: Donte Rasmussen Anticipated date of discharge: 06/07/16 - Patient Status Disposition: Home, Self-Care Condition: Fair Functional capacity at discharge: independent ambulation Overall status at discharge: patient is progressing back to baseline - Discharge Instructions Instructions: Levofloxacin (By mouth), Acute Respiratory Distress Syndrome (DC) , Diabetes Mellitus Type 2 in Adults (DC), Using Oxygen at Home (DC), Using Oxygen at Home (GEN), Chronic Obstructive Pulmonary Disease (DC), Sepsis (DC), Chronic Hypertension (DC), Pneumonia (DC), 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 Please take the antibiotic, levofloxacin, and daily for the next 5 days. Please resume your home medications. Please follow-up with your oncologist at [facility] as scheduled. Please wear your oxygen Please return for any new or worsening symptoms. - Diet and Activity Activity: increase activity as tolerated, wear oxygen at all times Diet: advance to your usual diet Interval History: Patient seen and examined bedside. Patient has no complaints at this time. Patient states his breathing has returned to baseline, he denies shortness of breath. he denies cough, congestion, fever, chills. Hospital course: Mr. Arvizu is a 80 year old male with history of COPD and lung cancer in remission presented with shortness of breath and cough. Patient states for the last several days he has had mild worsening of shortness of breath and a dry cough. He also had subjective fevers and chills at home. Patient was admitted for concern for pneumonia with evidence of a left lower lobe infiltrate on chest x-ray. Patient was started on antibiotics and continued on his home medication including breathing treatments. Patient did have some tachycardia and given this and his symptoms we did obtain a CTA which was negative for pulmonary embolism but did redemonstrate his pneumonia. Patient recovered well and is stable to discharge. - Time Spent with Patient Total time spent providing and/or coordinating discharge services: - Constitutional Vitals: Temp Pulse Resp BP Pulse Ox 98 F 102 16 133/80 95 06/07/16 07:30 06/07/16 07:30 06/07/16 07:30 06/07/16 07:30 06/07/16 07:30 General appearance: Present: cooperative, A&O X 3, pleasant, no acute distress, answers questions appropriately - Respiratory Respiratory exam: Present: rhonchi (Mild, left lower lobe, improved). Absent: rales, wheezes - Cardiovascular Cardiovascular exam: Present: RRR, +S1, +S2. Absent: gallop, rubs, systolic murmur - GI/Abdominal GI/Abdominal exam: Present: normal bowel sounds, soft. Absent: distended, tenderness - Extremities Exam Extremities exam: Absent: pedal edema, tenderness - Neurological Exam Neurological exam: Present: alert, CN II-XII intact, oriented X3, no focal deficits <Declna Meyers - Last Filed: 06/07/16 17:14> Date of Encounter: 06/07/16 - Discharge Diagnosis (1) Acute respiratory failure with hypoxia Status: Acute (2) Sepsis Status: Resolved Qualifiers: Sepsis type: sepsis due to unspecified organism Qualified Code(s): A41.9 - Sepsis, unspecified organism (3) Pneumonia Priority: Secondary Status: Acute Qualifiers: Pneumonia type: due to unspecified organism Laterality: left Lung location: lower lobe of lung Qualified Code(s): J18.1 - Lobar pneumonia, unspecified organism (4) Diabetes mellitus Status: Chronic Qualifiers: Diabetes mellitus type: type 2 Diabetes mellitus complication status: without complication Diabetes mellitus detention insulin use: without detention use Qualified Code(s): E11.9 - Type 2 diabetes mellitus without complications (5) Tobacco abuse Priority: Secondary Status: Acute (6) Tachycardia Priority: Secondary Status: Acute (7) Hypertension Priority: Secondary () Status: Chronic Qualifiers: Hypertension type: essential hypertension Qualified Code(s): I10 - Essential (primary) hypertension Date of admission: 06/06/16 14:17 Primary care physician: Naveen Ballesteros Hospital course: Mr. Arvizu is a 80 year old male - Time Spent with Patient Total time spent providing and/or coordinating discharge services: 38min - Constitutional Vitals: Temp Pulse Resp BP Pulse Ox 98 F 102 18 133/80 94 L 06/07/16 07:30 06/07/16 07:30 06/07/16 10:21 06/07/16 07:30 06/07/16 10:21 - Attending Attestation I examined this patient and my medical decision-making was reviewed with the Resident Physician on 06/07/16. I agree with the documented findings, disposition and treatment plan as described except to the extent set forth below. Mr. Arvizu is feeling OK. He is up and ambulating in the [place]. Exam Alert. Up in [place] Heart reg Lungs diminished but clear Plan D/C today Follow up with PCP.
[2016-06-07] MEDS: Budesonide Neb 0.5 MG/2 ML IH SCH (10:20)
== END 2016-06-07 13:26 | disposition home or self-care (01) | DRG 871 ==
LOC: 2NENU 06:36 → EMEROO 06:36 → 2NENU 14:40
PROVIDERS: ADMIT Internal Medicine; ATTEND Internal Medicine

== ENCOUNTER 2018-01-29 00:41 | Inpatient (IN) ==
[2018-01-29] MEDS ORDERED: 0.9 % Sodium Chloride 1,000 ML ONE ×2 (00:53→01:23)
[2018-01-29] MEDS ORDERED: 0.9 % Sodium Chloride 1,000 ML IVC ONE (01:27)
[2018-01-29] MEDS: 0.9 % Sodium Chloride 1,000 ML IVC SCH ×2 (01:38→10:26)
[2018-01-29 01:48] LABS: Mean Corpuscular HGB Conc 32.4 g/dL (31.6-35.5); Mean Platelet Volume 9.4 fL (9.4-12.4)
[2018-01-29 01:49] LABS: Eosinophils % 2.1 %; Hematocrit 36.1 % (37.5-50.1); Hemoglobin 11.7 g/dL (12.9-16.9); Lymphocytes # 0.7 K/mcL (0.6-4.6); Lymphocytes % 71.1 %; Mean Corpuscular Hemoglobin 30.8 pg (28.0-33.3); Monocytes % 2.1 %; Neutrophils # 0.2 K/mcL (1.6-8.9); Platelet Count 107 K/mcL (140-400); Red Cell Distribution Width 14.4 % (11.5-14.5); Segmented Neutrophils % 23.7 %
[2018-01-29 02:02] LABS: Alanine Aminotransferase 23 Units/L (7-52); Albumin/Globulin Ratio 1.7 (1.1-2.2); Alkaline Phosphatase 43 Units/L (34-104); Aspartate Amino Transferase 16 Units/L (13-39); BUN/Creatinine Ratio 20 (6-26); Bilirubin,Direct 0.3 mg/dL (0.0-0.2); Bilirubin,Indirect 0.9 mg/dL (0.0-1.2); Bilirubin,Total 1.2 mg/dL (0.3-1.0); Blood Urea Nitrogen 27 mg/dL (8-23); Calcium 8.9 mg/dL (8.6-10.3); Carbon Dioxide 22 mEq/L (23-29); Chloride 110 mEq/L (98-107); Globulin 2.4 g/dL (2.4-3.5); Glucose 110 mg/dL (70-105); Osmolality,Calculated 296 (280-300); Potassium 4.4 mEq/L (3.5-5.1); Sodium 140 mEq/L (136-145); Total Protein 6.4 g/dL (6.4-8.9); Troponin I < 0.03 ng/mL (< 0.04); eGFR For Non-African Americans 50 (> 60)
[2018-01-29 02:24] LABS: Reactive Lymphocytes Present (Not Present)
[2018-01-29 02:25] LABS: Platelet Estimate Slight Decrease (Normal)
[2018-01-29 02:27] LABS: Bilirubin,Urine Negative (Negative); Blood,Urine Negative (Negative); Clarity,Urine Clear (Clear); Color,Urine Yellow (Yellow); Glucose,Urine (UA) Normal (Normal); Ketones,Urine Negative (Negative); Leukocyte Esterase,Urine Negative (Negative); Nitrite,Urine Negative (Negative); Protein,Urine Negative (Neg-Trace); Specific Gravity,Urine 1.017 (1.010-1.025); Urobilinogen,Urine Normal (Normal)
[2018-01-29] MEDS ORDERED: Piperacillin/Tazobactam 3.375 GM in 0.9 % Sodium Chloride Mini Bag 100 ML IVPB ONE (02:40)
[2018-01-29 02:44] LABS: INR 1.1; Prothrombin Time 11.9 Seconds (9.4-12.1)
[2018-01-29 02:47] LABS: Activated Partial Thrombo Time 29.7 Seconds (26.0-36.0)
--- NOTE | 2018-01-29 03:55 | Emergency Department Note ---
Disposition Clinical Impression: Generalized weakness, Healthcare-associated pneumonia, Leukopenia due to antineoplastic chemotherapy Sepsis Qualifiers: Sepsis type: sepsis due to unspecified organism Qualified Code(s): A41.9 - Sepsis, unspecified organism Lung cancer Qualifiers: Laterality: right Lung location: unspecified part of lung Qualified Code(s): C34.91 - Malignant neoplasm of unspecified part of right bronchus or lung Hypotension Qualifiers: Hypotension type: unspecified hypotension type Qualified Code(s): I95.9 - Hypotension, unspecified Disposition: Admitted As Inpatient Condition: Fair Referrals: Macario Yarbrough DO [Primary Care Provider] - Forms: ED Satisfaction Letter Altered Mental Status HPI - General Chief Complaint: ED Altered Mental Status Stated Complaint: hypotension Time Seen by Provider: 01/29/18 00:48 Source: patient, family, EMS Limitations: no limitations Nursing Notes Reviewed: Yes Vital Signs Reviewed: Yes - History of Present Illness HPI Narrative: Patient is an 82-year-old male who presents to the emergency department by EMS for complaint of acute onset of generalized weakness and near syncope. EMS reports that when they arrived his blood pressure was 50 systolic. Patient has a history of lung cancer in the past with recent recurrence. He just was admitted to the hospital within the past month and had an apparent ablation of part of his right lung. He also is currently on chemotherapy and he had 3 days of chemotherapy last week with her last dose on Saturday. 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 This evening he suddenly just became very weak and nearly passed out. On arrival here his systolic blood pressure was about 90 and he was tachycardic with a heart rate of around 113. He does admit to having some productive cough with some yellowish green sputum. He has not noticed any fever. He denies any chest pain or increased shortness of breath. No abdominal pain. No nausea or vomiting or diarrhea. No GI bleed symptoms. No UTI symptoms. He has had some chills since onset of the symptoms. 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[employer] Timing confirmed by: family member Pain Severity: none Pain Scale: 0 Consistency of Symptoms: waxing and waning Context: cancer Associated symptoms: Reports: denies other symptoms, chills - Related Data Home Medications Medication Instructions Recorded Confirmed ALPRAZolam [Xanax 1 MG Tablet] 1 mg PO QID PRN 09/12/15 06/05/16 Albuterol Sulfate [Albuterol 2 puff IH Q4H PRN 09/12/15 06/05/16 Inhaler] Atorvastatin Calcium [Lipitor] 80 mg PO DAILY 09/12/15 06/05/16 Cyanocobalamin (Vitamin B-12) 1,000 mcg PO DAILY 09/12/15 06/05/16 [Vitamin B-12] Metformin HCl [Glucophage] 1,000 mg PO BID 09/12/15 06/05/16 Oxycodone HCl/Acetaminophen 1 tab PO Q6H PRN 09/12/15 06/05/16 [Percocet 10-325 mg Tablet] Potassium Chloride [K-Tab ER] 10 meq PO BID 09/12/15 06/05/16 Tamsulosin [Flomax] 0.4 mg PO BID 09/12/15 06/05/16 Previous Rx's Medication Instructions Recorded Levofloxacin [Levaquin] 750 mg PO DAILY #5 tablet 06/07/16 Allergies Allergy/AdvReac Type Severity Reaction Status Date / Time No Known Allergies Allergy Verified 09/12/15 11:18 All systems ED: reviewed and negative except as stated. Constitutional: Reports: chills. Denies: fever ENT ED: Denies: ear pain, throat pain, dysphagia Cardiovascular: Reports: other (Generalized weakness with near syncope and hypotension). Denies: chest pain Respiratory: Reports: cough, sputum production Gastrointestinal: Denies: abdominal pain, nausea, vomiting, diarrhea Genitourinary: Denies: dysuria, frequency, hematuria Musculoskeletal: Denies: back pain Integumentary: Denies: rash, lesions Neurological: Denies: headache Psychiatric: Denies: anxiety, depression Endocrine: Denies: fatigue Hematological/Lymphatic: Denies: easy bleeding Allergic/Immunologic: Denies: facial swelling Past Medical History - Past Medical History Medical history: Reports: cancer, diabetes, hypertension Surgical history: Reports: colostomy Psychiatric history: Reports: anxiety - Social History Smoking Status: Current every day smoker Smokeless Tobacco Status: No Alcohol use: Reports: none Drug use: Reports: none Physical Exam - General Limitations: no limitations General appearance: alert, in no apparent distress - Head Head exam: atraumatic, normocephalic, normal inspection - Eye Eye exam: Present: normal appearance, PERRL, EOMI. Absent: scleral icterus, conjunctival injection - ENT ENT exam: normal oropharynx, mucous membranes dry, TM's normal bilaterally - Neck Neck exam: Present: normal inspection, trachea midline. Absent: tenderness, meningismus - Chest Chest inspection: Present: normal inspection, symmetric chest wall rise. Absent : tenderness - Respiratory Respiratory exam: Present: other (Decreased breath sounds bilaterally, especially on the right.). Absent: respiratory distress - Cardiovascular Cardiovascular exam: Present: normal rhythm, tachycardia - Abdominal Exam Abdominal exam: Present: soft, Non-Tender, normal bowel sounds - Extremities Exam Extremities exam: Present: normal inspection, full ROM. Absent: tenderness, pedal edema - Back Exam Back exam: Absent: CVA tenderness (R) - Neurological Exam Neurological exam: Present: alert, oriented X3. Absent: motor sensory deficit - Psychiatric Psychiatric exam: Present: normal affect, normal mood - Skin Skin exam: Present: warm, dry, intact, normal color. Absent: cyanosis, diaphoresis Course Course Narrative: Elderly male with history of lung cancer on chemotherapy presents with acute onset of generalized weakness and hypotension. He has been in the hospital within the past month. His only other complaint is some cough with greenish yellow sputum production. Some chills but no fever. Workup reveals a leukopenia with WBC of 1.0. Chest x-ray shows increased consolidation in the right lung likely related to spread of his lung cancer but underlying pneumonia is possible. Blood cultures obtained. Patient received a bolus of normal saline with some improvement in his blood pressure but continues to run around 100 systolic. Patient started on IV vancomycin and Zosyn for hospital-acquired pneumonia. I will consult the hospitalist for admission. - Consultations Consultation #1: The hospitalist, Dr. Wright, was consulted and he accepted admission of the patient. Time: 04:02 Vital Signs Temperature 98.2 F 01/29/18 00:45 Pulse Rate 106 01/29/18 00:45 Respiratory Rate 18 01/29/18 00:45 Blood Pressure 93/60 01/29/18 00:45 O2 Sat by Pulse Oximetry 95 01/29/18 00:45 Temperature 98.2 F 01/29/18 00:45 Pulse Rate 106 01/29/18 03:21 Respiratory Rate 20 01/29/18 03:21 Blood Pressure 104/57 01/29/18 03:21 O2 Sat by Pulse Oximetry 99 01/29/18 03:21 Oxygen Delivery Oxygen Delivery Nasal Cannula Altered Mental Status - Lab Data Result diagrams: 01/29/18 00:54 01/29/18 00:54 Lab Results 01/29/18 01/29/18 01/29/18 Range/Units 00:54 00:54 02:17 WBC 1.0 L* (4.3-11.1) K/mcL RBC 3.80 L (4.19-5.50) M/mcL Hgb 11.7 L (12.9-16.9) g/dL Hct 36.1 L (37.5-50.1) % MCV 95.0 (83.0-100.0) fL MCH 30.8 (28.0-33.3) pg MCHC 32.4 (31.6-35.5) g/dL RDW 14.4 (11.5-14.5) % Plt Count 107 L (140-400) K/mcL MPV 9.4 (9.4-12.4) fL Immature Gran % 0.0 (0-4) % Seg Neutrophils % 23.7 % Lymphocytes % 71.1 % Monocytes % 2.1 % Eosinophils % 2.1 % Basophils % 1.0 % Neutrophils # 0.2 L (1.6-8.9) K/mcL Lymphocytes # 0.7 (0.6-4.6) K/mcL Monocytes # 0.0 (0.0-1.3) K/mcL Eosinophils # 0.0 (0.0-0.6) K/mcL Basophils # 0.0 (0.0-0.2) K/mcL Reactive Lymphocytes Present A (Not Present) Platelet Estimate Slight Decrease L (Normal) PT (9.4-12.1) Seconds INR APTT (26.0-36.0) Seconds Sodium 140 (136-145) mEq/L Potassium 4.4 (3.5-5.1) mEq/L Chloride 110 H (98-107) mEq/L Carbon Dioxide 22 L (23-29) mEq/L BUN 27 H (8-23) mg/dL Creatinine 1.36 H (0.70-1.30) mg/dL Est GFR ( Amer) > 60 (> 60) Est GFR (Non-Af Amer) 50 L (> 60) BUN/Creatinine Ratio 20 (6-26) Glucose 110 H (70-105) mg/dL Calculated Osmolality 296 (280-300) Calcium 8.9 (8.6-10.3) mg/dL Total Bilirubin 1.2 H (0.3-1.0) mg/dL Direct Bilirubin 0.3 H (0.0-0.2) mg/dL Indirect Bilirubin 0.9 (0.0-1.2) mg/dL AST 16 (13-39) Units/L ALT 23 (7-52) Units/L Alkaline Phosphatase 43 (34-104) Units/L Troponin I < 0.03 (< 0.04) ng/mL Serum Total Protein 6.4 (6.4-8.9) g/dL Albumin 4.0 (3.5-5.7) g/dL Globulin 2.4 (2.4-3.5) g/dL Albumin/Globulin Ratio 1.7 (1.1-2.2) Urine Color Yellow (Yellow) Urine Clarity Clear (Clear) Urine pH 6.0 (5.0-8.0) pH Units Ur Specific Dale 1.017 (1.010-1.025) Urine Protein Negative (Neg-Trace) mg/dL Urine Glucose (UA) Normal (Normal) mg/dL Urine Ketones Negative (Negative) mg/dL Urine Blood Negative (Negative) Urine Nitrite Negative (Negative) Urine Bilirubin Negative (Negative) Urine Urobilinogen Normal (Normal) mg/dL Ur Leukocyte Esterase Negative (Negative) Ur Culture Indicated? NO (NO) Blood Type Antibody Screen 01/29/18 01/29/18 Range/Units 02:22 02:22 WBC (4.3-11.1) K/mcL RBC (4.19-5.50) M/mcL Hgb (12.9-16.9) g/dL Hct (37.5-50.1) % MCV (83.0-100.0) fL MCH (28.0-33.3) pg MCHC (31.6-35.5) g/dL RDW (11.5-14.5) % Plt Count (140-400) K/mcL MPV (9.4-12.4) fL Immature Gran % (0-4) % Seg Neutrophils % % Lymphocytes % % Monocytes % % Eosinophils % % Basophils % % Neutrophils # (1.6-8.9) K/mcL Lymphocytes # (0.6-4.6) K/mcL Monocytes # (0.0-1.3) K/mcL Eosinophils # (0.0-0.6) K/mcL Basophils # (0.0-0.2) K/mcL Reactive Lymphocytes (Not Present) Platelet Estimate (Normal) PT 11.9 (9.4-12.1) Seconds INR 1.1 APTT 29.7 (26.0-36.0) Seconds Sodium (136-145) mEq/L Potassium (3.5-5.1) mEq/L Chloride (98-107) mEq/L Carbon Dioxide (23-29) mEq/L BUN (8-23) mg/dL Creatinine (0.70-1.30) mg/dL Est GFR ( Amer) (> 60) Est GFR (Non-Af Amer) (> 60) BUN/Creatinine Ratio (6-26) Glucose (70-105) mg/dL Calculated Osmolality (280-300) Calcium (8.6-10.3) mg/dL Total Bilirubin (0.3-1.0) mg/dL Direct Bilirubin (0.0-0.2) mg/dL Indirect Bilirubin (0.0-1.2) mg/dL AST (13-39) Units/L ALT (7-52) Units/L Alkaline Phosphatase (34-104) Units/L Troponin I (< 0.04) ng/mL Serum Total Protein (6.4-8.9) g/dL Albumin (3.5-5.7) g/dL Globulin (2.4-3.5) g/dL Albumin/Globulin Ratio (1.1-2.2) Urine Color (Yellow) Urine Clarity (Clear) Urine pH (5.0-8.0) pH Units Ur Specific Dale (1.010-1.025) Urine Protein (Neg-Trace) mg/dL Urine Glucose (UA) (Normal) mg/dL Urine Ketones (Negative) mg/dL Urine Blood (Negative) Urine Nitrite (Negative) Urine Bilirubin (Negative) Urine Urobilinogen (Normal) mg/dL Ur Leukocyte Esterase (Negative) Ur Culture Indicated? (NO) Blood Type A POSITIVE Antibody Screen POSITIVE TPA Checklist - LKW: 3-4.5 hrs Add. Warnings/Precautions Patient/family understanding: The patient/family members have been counseled and understood the risk, benefit , and alternatives of treatment. Critical Care Time Critical Care Time: Yes Total Critical Care Time: 45 Attestation: Critical care performed: Time is exclusive of separately billable procedures. Time includes: direct patient care, patient reassessment, coordination of patient care, interpretation of data (laboratory data, radiology data, and respiratory data), review of patient's medical records, medical consultation and documentation of patient care. Procedures included in critical care time: Procedures excluded from critical care time:
[2018-01-29] MEDS ORDERED: Acetaminophen 325 MG TABLET PO PRN (05:35)
[2018-01-29] MEDS ORDERED: Naloxone 0.4 MG/ML INJ IVP PRN ×2 (05:35→07:17)
[2018-01-29] MEDS ORDERED: D5% in Water 1,000 ML IVC PRN (05:43)
[2018-01-29] MEDS ORDERED: Dextrose Gel 15 GM/37.5 ML TUBE PO PRN ×2 (05:43)
[2018-01-29] MEDS ORDERED: *HR* Dextrose 50 % in Water (Syg) 50 ML SYRINGE IVP PRN (05:43)
--- NOTE | 2018-01-29 05:56 | Internal Med History&Physical ---
<Julio Cesar Ballesteros Karol - Last Filed: 01/29/18 07:10> Date of Encounter: 01/29/18 Time of Encounter: 05:46 Internal Medicine - H&P: HPI Chief complaint: weakness Admitted From: Emergency Dept Plans for Post Hospital Care: Home History of present illness: Mr. Arvizu is a 82 year old male with a past medical history of lung cancer, diabetes, hypertension. He is currently receiving chemotherapy, he did not of the name of the drug and I cannot find documentation for it. He presented to the emergency department today for weakness and near-syncope. 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 He lives with his daughter who called EMS. According to EMS when they arrived his blood pressure was in the 50s systolic. On arrival to the emergency department his systolic pressure was in the 90s, heart rate around 110. They started a normal saline fluid bolus and his blood pressure rapidly improved to the low 100s systolic with a heart rate around 100. His other vitals were within normal limits. CBC revealed white count of 1.0, ANC 200, hemoglobin 11.7, platelets 107. CMP revealed creatinine 1.36 which is above his baseline. Labs were otherwise within normal limits or noncontributory. On interviewing the patient he states that he became weak from working out in the yard all day. He does state that he feels he has had a cold for the last month or so has been taking Mucinex. He otherwise denies fever or chills, chest pain or shortness of breath, abdominal pain or nausea or vomiting. He denies any recent change in medication or environmental, he is using Chantix to quit smoking. Past Med Surg Social Fam HX - Past Medical History Medical history: cancer, diabetes, hypertension Additional medical history: lung CA Psychiatric history: anxiety - Past Surgical History Surgical History: colostomy Additional surgical history: colon sx, back surgery - Social History Smoking Status: Current every day smoker Smokeless Tobacco Status: No Alcohol use: none Drug use: none - Family History Mother Living Status: Hx Family Cardiac Disorders: Yes Father Hx Family Medical Disorders: Yes (non contributory) Internal Medicine - H&P: Meds ALPRAZolam [Xanax 1 MG Tablet] 1 mg PO QID PRN 09/12/15 [History] Albuterol Sulfate [Albuterol Inhaler] 2 puff IH Q4H PRN 09/12/15 [History] Atorvastatin Calcium [Lipitor] 80 mg PO DAILY 09/12/15 [History] Cyanocobalamin (Vitamin B-12) [Vitamin B-12] 1,000 mcg PO DAILY 09/12/15 [ History] Metformin HCl [Glucophage] 1,000 mg PO BID 09/12/15 [History] Oxycodone HCl/Acetaminophen [Percocet 10-325 mg Tablet] 1 tab PO Q6H PRN [History] Potassium Chloride [K-Tab ER] 10 meq PO BID 09/12/15 [History] Tamsulosin [Flomax] 0.4 mg PO BID 09/12/15 [History] Levofloxacin [Levaquin] 750 mg PO DAILY #5 tablet 06/07/16 [Rx] 3 Allergy/AdvReac Type Severity Reaction Status Date / Time No Known Allergies Allergy Verified 09/12/15 11:18 All Systems PM: A 10-system review of systems was performed and is negative for pertinent findings except as documented above in the HPI. - Constitutional Constitutional: fatigue, weakness, no chills, no fever(s) - EENT Eyes: no change in vision - Cardiovascular Cardiovascular ROS IM: lightheadedness, no chest pain, no diaphoresis, no dyspnea, no dyspnea on exertion, no irregular heart rhythm, no syncope - Respiratory Respiratory: cough, chest congestion, change in phlegm color, no dyspnea, no hemoptysis, no dyspnea on exertion, no wheezing - Gastrointestinal Gastrointestinal: no abdominal pain, no diarrhea, no nausea, no vomiting - Genitourinary Genitourinary ROS male: no difficulty urinating - Musculoskeletal Musculoskeletal ROS IM: no muscle weakness - Neurological Neurological ROS: weakness, no abnormal speech, no behavioral changes, no focal weakness, no frequent falls - Psychiatric Psychiatric: no confusion - Constitutional Vitals: Temp Pulse Resp BP Pulse Ox 98.2 F 105 20 130/78 97 01/29/18 00:45 01/29/18 05:15 01/29/18 05:15 01/29/18 05:15 01/29/18 05:15 Exam: Patient in no acute distress, resting comfortably, alert and oriented 3 Cranial nerves II through XII intact Mucous membranes dry Heart tachycardic but in regular rhythm Lungs sounds course and diminished on the right but otherwise clear Abdomen soft and nontender with normal bowel sounds present Bilateral lower extremities nonedematous Skin warm and dry Internal Med - H&P Results - Labs CBC & Chem 7: 01/29/18 00:54 01/29/18 00:54 - Assessment and plan (1) Generalized weakness Current Visit: Yes Status: Acute Assessment and plan: Patient presented with the chief complaint of generalized weakness On EMS arrival his blood pressure was found to be in the 50 systolic Blood pressure quickly improved with fluid resuscitation Patient also slightly tachycardic but vitals otherwise stable CBC/CMP significant for white count 1.0, hemoglobin 11.7, platelets 107, ANC 200 , creatinine 1.36, lactic acid 1.4 Patient states he has had a cold for a month but otherwise denies fever or chills Chest x-ray demonstrated increased right lung consolidation concerning for recurrent cancer Possible superimposed pneumonia but difficult to demonstrated on x-ray Differentials include sepsis secondary to pneumonia and hypovolemia Patient does not clinically appear septic, no fever, blood pressure quickly improved Vancomycin and piperacillin-tazobactam given in the ED Difficult to evaluate with anti-neoplastic chemotherapy induced neutropenia More likely hypovolemia secondary to working outside in the heat all day Patient is currently normotensive, slightly tachycardic, asymptomatic, alert and oriented Plan Continue fluid resuscitation Continuous cardiac monitoring and pulse oximetry Continue Vancomycin and Zosyn until PNA ruled out Chest CT to better evaluate consolidation Consider Pulmonary consult based on CT (2) Hypovolemia Current Visit: Yes Status: Resolved Assessment and plan: Patient presented hypotensive after working outside in the heat all day Blood pressure quickly improved after fluid resuscitation Continue to monitor and differentiate from sepsis (3) Community acquired pneumonia Current Visit: Yes Status: Suspected Assessment and plan: Patient has had about a month of cold symptoms with productive cough Chest x-ray was worrisome for recurrent lung disease, unable to determine if superimposed pneumonia Plan to continue antibiotics in this neutropenic patient until pneumonia can be ruled out Qualifiers: Laterality: right Lung location: unspecified part of lung Qualified Code( s): J18.9 - Pneumonia, unspecified organism (4) Leukopenia due to antineoplastic chemotherapy Current Visit: Yes Status: Acute Assessment and plan: Patient is on chemotherapy for lung cancer, specific therapy unknown White count 0.1, ANC 200 Plan for neutropenic precautions (5) Lung cancer Current Visit: Yes Status: Chronic Assessment and plan: Patient with history of lung cancer that was at one point in remission and then recurred Patient on chemotherapy currently Chest x-ray concerning for recurrence We will continue to monitor and re-evaluate with chest CT Qualifiers: Laterality: right Lung location: unspecified part of lung Qualified Code( s): C34.91 - Malignant neoplasm of unspecified part of right bronchus or lung (6) Diabetes mellitus Current Visit: No Status: Chronic Assessment and plan: Patient is chronic diabetic and takes metformin at home We will hold home medications here Glucose checks before meals at bedtime and low-dose corrective sliding scale insulin protocol Qualifiers: Diabetes mellitus type: type 2 Diabetes mellitus associate professor of communication insulin use: without associate professor of communication use Diabetes mellitus complication status: without complication Qualified Code(s): E11.9 - Type 2 diabetes mellitus without complications (7) BENIGNO (acute kidney injury) Current Visit: Yes Status: Acute Assessment and plan: Patient presented with creatinine 1.36, baseline appears to be <1 based on previous labs Supports differential of hypovolemia Will likely resolve with fluid resuscitation Will continue to monitor - Time Spent With Patient Total time spent is greater than 50% in coordination of care (as documented) at patient's floor/unit and/or counseling patient: <Momo Nathan - Last Filed: 01/29/18 07:33> Date of Encounter: 01/29/18 Internal Medicine - H&P: HPI History of present illness: Mr. Arvizu is a 82 year old male All Systems PM: A 10-system review of systems was performed and is negative for pertinent findings except as documented above in the HPI. - Constitutional Vitals: Temp Pulse Resp BP Pulse Ox 99.6 F 110 20 132/64 96 01/29/18 06:00 01/29/18 06:08 01/29/18 06:00 01/29/18 06:00 01/29/18 06:00 Internal Med - H&P Results - Labs CBC & Chem 7: 01/29/18 00:54 01/29/18 00:54 - Assessment and plan (1) Community acquired pneumonia Current Visit: Yes Status: Suspected Qualifiers: Laterality: right Lung location: unspecified part of lung Qualified Code( s): J18.9 - Pneumonia, unspecified organism (2) Generalized weakness Current Visit: Yes Status: Acute (3) Diabetes mellitus Current Visit: No Status: Chronic Qualifiers: Diabetes mellitus type: type 2 Diabetes mellitus group home insulin use: without associate professor of communication use Diabetes mellitus complication status: without complication Qualified Code(s): E11.9 - Type 2 diabetes mellitus without complications (4) Lung cancer Current Visit: Yes Status: Chronic Qualifiers: Laterality: right Lung location: unspecified part of lung Qualified Code( s): C34.91 - Malignant neoplasm of unspecified part of right bronchus or lung (5) Leukopenia due to antineoplastic chemotherapy Current Visit: Yes Status: Acute (6) Hypovolemia Current Visit: Yes Status: Resolved (7) BENIGNO (acute kidney injury) Current Visit: Yes Status: Acute - Time Spent With Patient Total time spent is greater than 50% in coordination of care (as documented) at patient's floor/unit and/or counseling patient: - Attending Attestation Patient seen and examined. Chart including laboratory results reviewed. Case discussed with resident. Agree with assessment and plan. Admitted for fluid responsive hypotension in the setting of severe neutropenia in the absence of fever. Suspicion for a possible pneumonia in the setting of underlying lung cancer. Patient does not report any new productive cough or shortness of breath. We will continue with IV antibiotics broad spectrum for now. We will obtain CT scan of the chest to better appreciate any new pneumonic process. Consider pulmonary consult. Patient blood pressure much improved. No evidence of lactic acidosis. We will continue IV fluids for now.
[2018-01-29] MEDS ORDERED: Aminoglycoside Consult 1 EACH MC ONE (07:11)
[2018-01-29] MEDS: Insulin LISPRO 300 UNITS/3 ML VIAL SQ SCH ×3 (07:54→15:56)
--- NOTE | 2018-01-29 09:48 | Electrocardiograph Report ---
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
--- NOTE | 2018-01-29 11:03 | Pulmonology Consult Note ---
<Emil Mendosa W - Last Filed: 01/29/18 11:13> Date of Encounter: 01/29/18 Medications and Allergies ALPRAZolam [Xanax 1 MG Tablet] 1 mg PO QID PRN 09/12/15 [History] Albuterol Sulfate [Albuterol Inhaler] 2 puff IH Q4H PRN 09/12/15 [History] Atorvastatin Calcium [Lipitor] 80 mg PO DAILY 09/12/15 [History] Cyanocobalamin (Vitamin B-12) [Vitamin B-12] 1,000 mcg PO DAILY 09/12/15 [ History] Metformin HCl [Glucophage] 1,000 mg PO BID 09/12/15 [History] Oxycodone HCl/Acetaminophen [Percocet 10-325 mg Tablet] 1 tab PO Q6H PRN [History] Potassium Chloride [K-Tab ER] 10 meq PO BID 09/12/15 [History] Tamsulosin [Flomax] 0.4 mg PO BID 09/12/15 [History] Levofloxacin [Levaquin] 750 mg PO DAILY #5 tablet 06/07/16 [Rx] Olmesartan Medoxomil [Benicar] 5 mg PO DAILY 01/29/18 [History] 3 Allergy/AdvReac Type Severity Reaction Status Date / Time No Known Allergies Allergy Verified 09/12/15 11:18 All Systems: The remainder of the systems were reviewed and are negative Physical Examination Vital Signs: Vital Signs, Last 4 Hours Pulse Resp BP Pulse Ox 01/29/18 10:00 110 22 118/61 96 Results - Laboratory Findings CBC and BMP: 01/29/18 00:54 01/29/18 00:54 PT/INR, D-dimer PT 11.9 Seconds (9.4-12.1) 01/29/18 02:22 Abnormal lab findings: Abnormal lab results WBC 1.0 K/mcL (4.3-11.1) L* 01/29/18 00:54 RBC 3.80 M/mcL (4.19-5.50) L 01/29/18 00:54 Hgb 11.7 g/dL (12.9-16.9) L 01/29/18 00:54 Hct 36.1 % (37.5-50.1) L 01/29/18 00:54 Plt Count 107 K/mcL (140-400) L 01/29/18 00:54 Neutrophils # 0.2 K/mcL (1.6-8.9) L 01/29/18 00:54 Reactive Lymphocytes Present (Not Present) A 01/29/18 00:54 Platelet Estimate Slight Decrease (Normal) L 01/29/18 00:54 Chloride 110 mEq/L (98-107) H 01/29/18 00:54 Carbon Dioxide 22 mEq/L (23-29) L 01/29/18 00:54 BUN 27 mg/dL (8-23) H 01/29/18 00:54 Creatinine 1.36 mg/dL (0.70-1.30) H 01/29/18 00:54 Est GFR (Non-Af Amer) 50 (> 60) L 01/29/18 00:54 Glucose 110 mg/dL (70-105) H 01/29/18 00:54 POC Glucose 105 mg/dL (70-99) H 01/29/18 05:59 Total Bilirubin 1.2 mg/dL (0.3-1.0) H 01/29/18 00:54 Direct Bilirubin 0.3 mg/dL (0.0-0.2) H 01/29/18 00:54 - Microbiology Findings Microbiology Findings: Microbiology, Last 48 Hours 01/29/18 10:15 Influenza Types A,B Antigen (ERLINDA) - Final Nasopharyngeal Consult Discharge Plan - Plan Referrals: Macario Yarbrough DO [Primary Care Provider] - - Attending Attestation I examined this patient and my medical decision-making was reviewed with the Resident Physician. I agree with the documented findings, disposition and treatment plan as described except to the extent set forth below. We independently had [id number] contact with the patient Patient seen and examined at bedside Labs, radiology, chart personally reviewed. Impression: 1. Severe Sepsis 2. Neutropenia 3. PNA 4. COPD with mild Exacerbation 5. Chronic Respiratory Failure 6. Tobacco Abuse 7. Lung Cancer Plan: 1. He has been volume resuscitated and received antibiotics send respiratory infection panel sputum culture blood cultures and urine culture lactate is normal stop IV crystalloid infusion 2. Start neutropenic precautions he may be a candidate for granulocyte colony- stimulating factor I would defer to oncology here (may need formal consultation ) versus discussion with his primary oncologist at [facility] about the appropriateness 3. I agree with broad-spectrum antimicrobials for the next 24-48 hours and MRSA swab likely de-escalate vancomycin if no evidence of MRSA 4. Start prednisone 40 mg for 5 days, schedule duo nebs every 6 hours with every hour albuterol as needed 5. Continue supplemental oxygen to keep saturation greater than 80% around 92% 6. Tobacco cessation counseling given 7. He is undergoing treatment at [facility] at [facility] there are changes in the right lung which could be consistent with post radiation pneumonitis given he is not in any respiratory distress or has significant worsening of oxygenation at this time I do not think that aggressive use of steroids would be helpful Thank you for the consultation. <Darshan Angela S - Last Filed: 01/29/18 22:03> Date of Encounter: 01/29/18 Time of Encounter: 11:00 Assessment and Plan (1) Pneumonia Current Visit: No Status: Acute CXR and chest CT concerning for pneumonia Patient started on meropenem Continue zosyn Discontinued vancomycin due to negative MRSA swab negative viral respiratory panel WBC 1, ANC 200 Qualifiers: Pneumonia type: due to unspecified organism Laterality: left Lung location: lower lobe of lung Qualified Code(s): J18.1 - Lobar pneumonia, unspecified organism (2) Sepsis Current Visit: No Status: Resolved Likely 2/2 pneumonia WBC 1.0 Lactate 0.8 Discontinued patient's IVF as he received sufficient resuscitation Patient's BP 118/61 Started meropenem, would recommend consulting ID Continue zosyn Discontinued vancomycin Qualifiers: Sepsis type: sepsis due to unspecified organism Qualified Code(s): A41.9 - Sepsis, unspecified organism (3) Neutropenia Current Visit: Yes Status: Acute Neutropenic precautions May be candidate for G-CSF1 Discontinued vancomycin Started Meropenem, would recommend consulting infectious disease Continue Zosyn Qualifiers: Neutropenia type: secondary to cancer chemotherapy Qualified Code(s): D70.1 - Agranulocytosis secondary to cancer chemotherapy; T45.1X5A - Adverse effect of antineoplastic and immunosuppressive drugs, initial encounter (4) Chronic respiratory failure with hypoxia Current Visit: Yes Status: Acute Patient currently saturating at 96% on 2L nasal cannula Negative viral respiratory panel CXR and chest CT concerning for pneumonia Patient on meropenem and zosyn Discontinued vancomycin after negative MRSA swab Continue bronchodilators (5) COPD (chronic obstructive pulmonary disease) Current Visit: No Status: Chronic Started patient on prednisone 40 mg PO daily Continue duonebs Patient saturating at 96% on 2L NC Qualifiers: COPD type: COPD with acute lower respiratory infection Qualified Code(s): J44.0 - Chronic obstructive pulmonary disease with acute lower respiratory infection (6) Lung cancer Current Visit: Yes Status: Chronic Patient receiving chemotherapy at [facility] 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, not in respiratory distress May need hematology/oncology consult for neutropenia Qualifiers: Laterality: right Lung location: unspecified part of lung Qualified Code( s): C34.91 - Malignant neoplasm of unspecified part of right bronchus or lung (7) DVT prophylaxis Current Visit: No Status: Acute Subcutaneous heparin History of Present Illness Consult date: 01/29/18 Requesting physician: Emil Mendosa Reason for consult: lung mass Chief complaint: Weakness History of present illness: 82 year old male with PMHx of lung cancer currently on chemotherapy, DM, and HTN presented to ED via ambulance with weakness and near-syncope. Patient was working outside all day when he became weak and lightheaded. When EMS arrived, his BP was systolic of 50s, but normalized to 90s upon arrival to ED. Patient was given fluid bolus of normal saline. Initial CBC showed leukopenia of 1.0 with ANC 200. CXR and chest CT concerning for pneumonia. Patient started on Vancomycin and Zosyn. Pulmonology consulted for possible pneumonia in the setting of lung cancer. Patient states he is a current smoker. He uses albuterol inhalers at home. He receives chemotherapy at [facility]. He had radiation for lung cancer 3 years ago. Patient denies fevers/chills, POOL, cough, SOB, CP, neck pain. Past Med Surg Social Fam HX - Past Medical History Medical history: cancer, diabetes, hypertension Additional medical history: lung CA Psychiatric history: anxiety - Past Surgical History Surgical History: colostomy Additional surgical history: colon sx, back surgery - Social History Smoking Status: Current every day smoker Smokeless Tobacco Status: No Alcohol use: none Drug use: none - Family History Father Hx Family Medical Disorders: Yes (non contributory) Mother Living Status: Hx Family Cardiac Disorders: Yes All Systems: The remainder of the systems were reviewed and are negative Physical Examination Vital Signs: Vital Signs, Last 4 Hours Pulse Resp BP Pulse Ox 01/29/18 10:00 110 22 118/61 96 General appearance: no acute distress Eyes: nonicteric Effort: normal Auscultation: right: rales, bilateral: diminished breath sounds Cardiovascular: regular rate and rhythm Gastrointestinal: normoactive bowel sounds, soft, non-tender Integumentary: normal Extremities: no cyanosis, no edema, pink and warm Musculoskeletal: no deformities normal mental status mood appropriate, affect normal Results - Laboratory Findings CBC and BMP: 01/29/18 00:54 01/29/18 00:54 PT/INR, D-dimer PT 11.9 Seconds (9.4-12.1) 01/29/18 02:22 Abnormal lab findings: Abnormal lab results WBC 1.0 K/mcL (4.3-11.1) L* 01/29/18 00:54 RBC 3.80 M/mcL (4.19-5.50) L 01/29/18 00:54 Hgb 11.7 g/dL (12.9-16.9) L 01/29/18 00:54 Hct 36.1 % (37.5-50.1) L 01/29/18 00:54 Plt Count 107 K/mcL (140-400) L 01/29/18 00:54 Neutrophils # 0.2 K/mcL (1.6-8.9) L 01/29/18 00:54 Reactive Lymphocytes Present (Not Present) A 01/29/18 00:54 Platelet Estimate Slight Decrease (Normal) L 01/29/18 00:54 Chloride 110 mEq/L (98-107) H 01/29/18 00:54 Carbon Dioxide 22 mEq/L (23-29) L 01/29/18 00:54 BUN 27 mg/dL (8-23) H 01/29/18 00:54 Creatinine 1.36 mg/dL (0.70-1.30) H 01/29/18 00:54 Est GFR (Non-Af Amer) 50 (> 60) L 01/29/18 00:54 Glucose 110 mg/dL (70-105) H 01/29/18 00:54 POC Glucose 105 mg/dL (70-99) H 01/29/18 05:59 Total Bilirubin 1.2 mg/dL (0.3-1.0) H 01/29/18 00:54 Direct Bilirubin 0.3 mg/dL (0.0-0.2) H 01/29/18 00:54 - Microbiology Findings Microbiology Findings: Microbiology, Last 48 Hours 01/29/18 10:15 Influenza Types A,B Antigen (ERLINDA) - Final Nasopharyngeal
[2018-01-29] MEDS: Piperacillin/Tazobactam 3.375 GM in 0.9 % Sodium Chloride Mini Bag 100 ML IVPB SCH ×2 (11:23→20:02)
[2018-01-29] MEDS: ALPRAZolam 1 MG TABLET PO PRN (11:29)
[2018-01-29] MEDS: *HR* OxyCODONE/APAP 10/325 TABLET PO PRN (11:29)
[2018-01-29] MEDS ORDERED: Albuterol 2.5 MG/3 ML NEBULIZER IH PRN (11:55)
[2018-01-29 12:23] LABS: Adenovirus Not Detected (Not Detect); Bordetella Pertussis Not Detected (Not Detect); Chlamydophila pneumoniae Not Detected (Not Detect); Coronavirus 229E Not Detected (Not Detect); Coronavirus HKU1 Not Detected (Not Detect); Coronavirus NL63 Not Detected (Not Detect); Coronavirus OC43 Not Detected (Not Detect); Human Metapneumovirus Not Detected (Not Detect); Human Rhinovirus/Enterovirus Not Detected (Not Detect); Influenza A Subtype 2009 H1 Not Detected (Not Detect); Influenza A Untypeable Not Detected (Not Detect); Influenza B Not Detected (Not Detect); Mycoplasma pneumoniae Not Detected (Not Detect); Parainfluenza Virus 1 Not Detected (Not Detect); Parainfluenza Virus 2 Not Detected (Not Detect); Parainfluenza Virus 3 Not Detected (Not Detect); Parainfluenza Virus 4 Not Detected (Not Detect); Respiratory Syncytial Virus Not Detected (Not Detect)
[2018-01-29] MEDS: predniSONE 20 MG TABLET PO SCH (12:32)
[2018-01-29] MEDS: *HR* Heparin 5,000 UNIT/ML VIAL SQ SCH ×2 (14:58→20:06)
[2018-01-29] MEDS: Ipratropium/Albuterol Neb 3 ML IH SCH ×2 (16:31→21:38)
[2018-01-29 16:43] LABS: blaKPC Carbapenem-Resist Gene Not Detected (Not Detect); mecA Methicillin-Resist Gene DETECTED (Not Detect)
[2018-01-29 16:44] LABS: Acinetobacter baumannii by PCR Not Detected (Not Detect); Candida albicans by PCR Not Detected (Not Detect); Candida glabrata by PCR Not Detected (Not Detect); Candida krusei by PCR Not Detected (Not Detect); Candida parapsilosis by PCR Not Detected (Not Detect); Candida tropicalis by PCR Not Detected (Not Detect); Enterobacter cloacae Cmplx PCR Not Detected (Not Detect); Enterobacteriaceae by PCR DETECTED (Not Detect); Enterococcus by PCR Not Detected (Not Detect); Escherichia coli by PCR DETECTED (Not Detect); Klebsiella oxytoca by PCR Not Detected (Not Detect); Klebsiella pneumoniae by PCR Not Detected (Not Detect); Proteus by PCR Not Detected (Not Detect); Pseudomonas aeruginosa by PCR Not Detected (Not Detect); Serratia marcescens by PCR Not Detected (Not Detect); Staphylococcus aureus by PCR Not Detected (Not Detect); Streptococcus agalactiae(B)PCR Not Detected (Not Detect); Streptococcus by PCR Not Detected (Not Detect); Streptococcus pneumoniae PCR Not Detected (Not Detect); Streptococcus pyogenes (A) PCR Not Detected (Not Detect)
--- NOTE | 2018-01-29 16:44 | Event Note ---
Date of Encounter: 01/29/18 Time of Encounter: 08:45 patient was seen and examined at bedside currently denies fever, chills, n/v/d, sorethroat, chest pain, SOB, palpitations. son at bedside - reports he follows at [facility] for chemotherapy. patient reports that he cannot recall the name of the medication he is recieving but reports that it is through an IV. Cthead: 01/29 1. No acute intracranial abnormality. 2. Near complete opacification of left maxillary sinus with hyperdense material. Findings may represent chronic sinusitis with inspissated secretions versus colonization with noninvasive fungus. 3. Chronic small vessel ischemic white matter disease and diffuse cerebral volume loss. CT chest: 01/29 1. Significant interval worsening in pulmonary opacities within right lung when compared to the previous chest CT on 06/06/2016. Persistent masslike opacity within right hilum, with additional new pulmonary opacities posteriorly within right lower lobe, as well as right middle lobe. Findings could represent combination of postobstructive atelectasis, postobstructive pneumonia, and/or recurrent or worsening lung neoplasm. Trace right pleural effusion. If this is treated as pneumonia, recommend short interval follow-up CT chest. 2. Unchanged bilateral adrenal nodules, partially imaged. 3. No significant mediastinal or axillary lymphadenopathy. Evaluation of the hilar lymphadenopathy is limited without contrast. 4. Unchanged 11 mm sclerotic lesion within T5 vertebral body. This is indeterminate. VSS NAD, speaks in full sentences occasional wheezing in the anterior chest, decreaed breath sounds bilaterarily tachycardic, S1 nd s2, abdomen is soft, nontender, has ostomy with good output and gas in the LLQ no edema of the extremities, no calf tenderness Axox3, no focal deficit A/p severe sepsis secondary to HCAP pancytopenia neutropenia COPD with mild exacerbation tobacco use history of lung CA on chemotherapy at [facility] history of colon CA s/p ostomy placement ARF neutropenic precaution continue vancomycin and zosyn influenza and urine antigens along with viral resp panel negative pulmonology consulted - recommendations appreciated consulted hematology for neutropenia and recs on GCSF - will give one dose of neupogen as per Dr. Nelson recs ( will follow further recommendations) on prednisone 40 mg daily x 5 days oxygen via NC to keep sats >92% ostomy care as per nursing protocol will follow MRSA nasal swab will consult palliative care for goals of care vitals a per ICU heparin sc for DVt prophylaxis as platelets >100K- watch platelets closely of they trend down will consider switching SCDS ARF was most likely secondary to hypotension and hypoperfusion from dehydration - was treated with iVF - will follow renal function IVF discontinued by Pulm team will continue home medications once verified will try to get records from [facility]
[2018-01-29] MEDS: Meropenem 1,000 MG in Water for inj. (sterile) 20 ML 10 ML IVP SCH (17:36)
--- NOTE | 2018-01-29 18:43 | Oncology Inp Consult Note ---
<Indigo Ruiz - Last Filed: 01/30/18 18:34> Date of Encounter: 01/30/18 Time of Encounter: 17:30 Assessment and Plan (1) Neutropenia Status: Acute Assessment and plan: Chemotherapy induced---S/P cycle #1 Carboplatin/Etoposide 01/20/2018 Low grade fever <100.4 on trending vitals ANC 100-Neupogen added daily until ANC >1.5 ATB coverage with Zosyn for gram negative juan pablo bacteremia/PNA Discussed with Dr. Nelson- does not wish to add cefepime at this time Qualifiers: Neutropenia type: secondary to cancer chemotherapy Qualified Code(s): D70.1 - Agranulocytosis secondary to cancer chemotherapy; T45.1X5A - Adverse effect of antineoplastic and immunosuppressive drugs, initial encounter (2) Pneumonia Status: Acute Assessment and plan: CXR and chest CT concerning for pneumonia Patient is on Zosyn Discontinued vancomycin due to negative MRSA swab negative viral respiratory panel Legionella and strep pneumo antigens are negative. Blood cultures have demonstrated gram-negative Enterobacteriaceae Qualifiers: Pneumonia type: due to unspecified organism Laterality: left Lung location: lower lobe of lung Qualified Code(s): J18.1 - Lobar pneumonia, unspecified organism (3) Small cell lung cancer Status: Acute Assessment and plan: Currently treated at [facility], Dr. Maya Diagnosed with SCLC 12/02/2017 Given his prior XRT history with his locally advanced squamous cell lung cancer , concurrent chemoradiation was not an option. Instead, he underwent a CT guided ablation on 01/09/18. He is s/p cycle #1, Day #1 Carboplatin/Etoposide at [facility] on 01/20/2018. Further treatment to be continued on outpatient basis at [facility] once acute issues resolve - Data of Consult Patient: new to practice Consult date: 01/30/18 Requesting Physician: Allison Wright MD Primary Care Provider: Macario Yarbrough DO - Consult Narrative Reason for consult: locally advanced squamous cell lung cancer History of present illness: Mr. Arvizu is a 82 year old male currently under care of Dr. Maya at [facility]. 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 He had concurrent chemoradiation with weekly Taxol/Carboplatin and completed 5/7 weekly doses secondary to cytopenias. He completed radiotherapy end of October 2013. In September 2017, a Chest CT showed growing confluent nodules in the RLL. A PET confirmed that this area had FDG uptake (with no other areas). A biopsy on showed SCLC. Given his prior XRT history with his locally advanced squamous cell lung cancer, concurrent chemoradiation was not an option. Instead, he underwent a CT guided ablation on 01/09/18. He is s/p cycle #1, Day #1 Carboplatin/Etoposide at [facility] on 01/20/2018. Mr. Arvizu presented to ED via ambulance with weakness and near-syncope. Patient was working outside all day when he became weak and lightheaded. When EMS arrived, his BP was systolic of 50s, but normalized to 90s upon arrival to ED. CXR and chest CT concerning for pneumonia. Patient started on Vancomycin and Zosyn. Patient states he is a current smoker. Labs reveal pancytopenia with ANC 200 on admission. Past Med Surg Social Fam HX - Past Medical History Medical history: cancer, diabetes, hypertension Additional medical history: lung CA Psychiatric history: anxiety - Past Surgical History Surgical History: colostomy Additional surgical history: colon sx, back surgery - Social History Smoking Status: Current every day smoker Smokeless Tobacco Status: No Alcohol use: none Drug use: none - Family History Father Hx Family Medical Disorders: Yes (non contributory) Mother Living Status: Hx Family Cardiac Disorders: Yes Medications and Allergies ALPRAZolam [Xanax 1 MG Tablet] 1 mg PO QID PRN 09/12/15 [History] Albuterol Sulfate [Albuterol Inhaler] 2 puff IH Q4H PRN 09/12/15 [History] Atorvastatin Calcium [Lipitor] 80 mg PO DAILY 09/12/15 [History] Metformin HCl [Glucophage] 1,000 mg PO BID 09/12/15 [History] Potassium Chloride [K-Tab ER] 10 meq PO BID 09/12/15 [History] Olmesartan Medoxomil [Benicar] 5 mg PO DAILY 01/29/18 [History] Oxycodone HCl/Acetaminophen [Endocet 10-325 mg Tablet] 1 tab PO 5XD 01/30/18 [ History] Tamsulosin [Flomax] 0.4 mg PO BID 01/30/18 [History] Tiotropium [Spiriva] 18 mcg PO DAILY 01/30/18 [History] 3 Allergy/AdvReac Type Severity Reaction Status Date / Time No Known Allergies Allergy Verified 09/12/15 11:18 Constitutional: Present: anorexia, fatigue, weakness, weight loss. Absent: chills, fever(s), frequent falls Eyes: Absent: change in vision Nose, mouth and throat: Absent: dysphagia Cardiovascular: Absent: chest pain Respiratory: Present: cough, dyspnea on exertion, chest congestion Gastrointestinal: Absent: abdominal pain, diarrhea, nausea, vomiting Additional comments: denies dysuria Musculoskeletal: Present: muscle weakness Integumentary: Absent: wounds Neurological: Present: disequilibrium, dizziness. Absent: focal weakness Hematologic/Lymphatic: Present: as per HPI Oncology - Exam - Constitutional Vitals: Temp Pulse Resp BP Pulse Ox 99.2 F 96 20 120/60 96 01/29/18 15:39 01/29/18 17:34 01/29/18 17:34 01/29/18 17:34 01/29/18 17:34 General appearance: cooperative, no acute distress, no febrile - Head Head exam: Present: atraumatic - ENT ENT exam: Present: mucous membranes moist - Respiratory Respiratory exam: Present: decreased breath sounds. Absent: respiratory distress - Cardiovascular Cardiovascular exam: Present: RRR, +S1, +S2 - GI/Abdominal GI/Abdominal exam: Present: normal bowel sounds, soft. Absent: tenderness - Extremities Exam Extremities exam: Absent: calf tenderness - Neurological Exam Neurological exam: Present: alert, oriented X3, no focal deficits, strengths equal and symetr throughout - Psychiatric Psychiatric exam: Present: normal affect, normal mood - Skin Skin exam: Present: dry, intact, pallor, warm Oncology - Results Labs: 3 01/29/18 01/29/18 01/29/18 15:41 11:34 10:50 POC Glucose 168 H 95 Nasal Screen MRSA (PCR) Chlamy pneumoniae PCR Not Detected Adenovirus (PCR) Not Detected B. pertussis DNA (PCR) Not Detected B.parapertussis DNA PCR Not Detected Coronavirus OC43 (PCR) Not Detected Coronavirus HKU1 (PCR) Not Detected Coronavirus 229E (PCR) Not Detected Coronavirus NL63 (PCR) Not Detected Human Metapneumovir PCR Not Detected Influenza A (H1) PCR Not Detected Influ A (H1N1/09) PCR Not Detected Influenza A (H3) PCR Not Detected Influenza A Untype (PCR) Not Detected Influenza Type B (PCR) Not Detected M.pneumoniae DNA (PCR) Not Detected Parainfluenza 1 (PCR) Not Detected Parainfluenza 2 (PCR) Not Detected Parainfluenza 3 (PCR) Not Detected Parainfluenza 4 (PCR) Not Detected RSV (PCR) Not Detected Entero/Rhino (PCR) Not Detected 3 01/29/18 10:50 POC Glucose Nasal Screen MRSA (PCR) Negative Chlamy pneumoniae PCR Adenovirus (PCR) B. pertussis DNA (PCR) B.parapertussis DNA PCR Coronavirus OC43 (PCR) Coronavirus HKU1 (PCR) Coronavirus 229E (PCR) Coronavirus NL63 (PCR) Human Metapneumovir PCR Influenza A (H1) PCR Influ A (H1N1/09) PCR Influenza A (H3) PCR Influenza A Untype (PCR) Influenza Type B (PCR) M.pneumoniae DNA (PCR) Parainfluenza 1 (PCR) Parainfluenza 2 (PCR) Parainfluenza 3 (PCR) Parainfluenza 4 (PCR) RSV (PCR) Entero/Rhino (PCR) Consult Discharge Plan - Plan Referrals: Macario Yarbrough DO [Primary Care Provider] - <PatriciaTomjim - Last Filed: 01/31/18 16:15> Date of Encounter: 01/31/18 - Data of Consult Requesting Physician: Karel Kirkland Primary Care Provider: Macario Yarbrough DO - Consult Narrative History of present illness: I examined this patient and my medical decision-making was reviewed with the Advanced Practice Nurse, Indigo Ruiz. I agree with the documented findings, disposition and treatment plan as described except to the extent set forth below. Oncology - Exam - Constitutional Vitals: Temp Pulse Resp BP Pulse Ox 98.2 F 108 18 149/91 94 01/30/18 19:45 01/30/18 19:45 01/31/18 04:05 01/30/18 19:45 01/31/18 04:05 Oncology - Results Labs: 3 01/31/18 01/31/18 01/30/18 01:25 01:25 21:19 WBC 0.7 L* RBC 2.94 L Hgb 9.1 L Hct 27.6 L MCV 93.9 MCH 31.0 MCHC 33.0 RDW 13.7 Plt Count 46 L MPV 10.0 Immature Gran % Seg Neutrophils % 12.0 Lymphocytes % 84.0 Monocytes % 4.0 Eosinophils % Basophils % Neutrophils # 0.1 L Lymphocytes # 0.6 Monocytes # 0.0 Eosinophils # Basophils # Reactive Lymphocytes Platelet Estimate Marked Decrease L Sodium 137 Potassium 3.6 Chloride 111 H Carbon Dioxide 18 L BUN 17 Creatinine 0.78 Est GFR ( Amer) > 60 Est GFR (Non-Af Amer) > 60 BUN/Creatinine Ratio 22 Glucose 155 H POC Glucose 178 H Calculated Osmolality 289 Calcium 8.0 L Phosphorus Magnesium Nasal Screen MRSA (PCR) Chlamy pneumoniae PCR Adenovirus (PCR) B. pertussis DNA (PCR) B.parapertussis DNA PCR Coronavirus OC43 (PCR) Coronavirus HKU1 (PCR) Coronavirus 229E (PCR) Coronavirus NL63 (PCR) Human Metapneumovir PCR Influenza A (H1) PCR Influ A (H1N1/09) PCR Influenza A (H3) PCR Influenza A Untype (PCR) Influenza Type B (PCR) M.pneumoniae DNA (PCR) Parainfluenza 1 (PCR) Parainfluenza 2 (PCR) Parainfluenza 3 (PCR) Parainfluenza 4 (PCR) RSV (PCR) Entero/Rhino (PCR) 3 01/30/18 01/30/18 01/30/18 16:23 11:59 07:48 WBC RBC Hgb Hct MCV MCH MCHC RDW Plt Count MPV Immature Gran % Seg Neutrophils % Lymphocytes % Monocytes % Eosinophils % Basophils % Neutrophils # Lymphocytes # Monocytes # Eosinophils # Basophils # Reactive Lymphocytes Platelet Estimate Sodium Potassium Chloride Carbon Dioxide BUN Creatinine Est GFR ( Amer) Est GFR (Non-Af Amer) BUN/Creatinine Ratio Glucose POC Glucose 187 H 173 H 135 H Calculated Osmolality Calcium Phosphorus Magnesium Nasal Screen MRSA (PCR) Chlamy pneumoniae PCR Adenovirus (PCR) B. pertussis DNA (PCR) B.parapertussis DNA PCR Coronavirus OC43 (PCR) Coronavirus HKU1 (PCR) Coronavirus 229E (PCR) Coronavirus NL63 (PCR) Human Metapneumovir PCR Influenza A (H1) PCR Influ A (H1N1/09) PCR Influenza A (H3) PCR Influenza A Untype (PCR) Influenza Type B (PCR) M.pneumoniae DNA (PCR) Parainfluenza 1 (PCR) Parainfluenza 2 (PCR) Parainfluenza 3 (PCR) Parainfluenza 4 (PCR) RSV (PCR) Entero/Rhino (PCR) 3 01/30/18 01/30/18 01/29/18 03:05 03:05 15:41 WBC 0.5 L* RBC 3.16 L Hgb 9.9 L D Hct 30.3 L MCV 95.9 MCH 31.3 MCHC 32.7 RDW 14.0 Plt Count 65 L MPV 9.7 Immature Gran % 0.0 Seg Neutrophils % 13.4 Lymphocytes % 80.8 Monocytes % 5.8 Eosinophils % 0.0 Basophils % 0.0 Neutrophils # 0.1 L Lymphocytes # 0.4 L Monocytes # 0.0 Eosinophils # 0.0 Basophils # 0.0 Reactive Lymphocytes Present A Platelet Estimate Decreased L Sodium 137 Potassium 3.8 Chloride 110 H Carbon Dioxide 19 L BUN 19 Creatinine 0.81 Est GFR ( Amer) > 60 Est GFR (Non-Af Amer) > 60 BUN/Creatinine Ratio 23 Glucose 184 H POC Glucose 168 H Calculated Osmolality 291 Calcium 8.0 L Phosphorus 2.2 L Magnesium 1.8 Nasal Screen MRSA (PCR) Chlamy pneumoniae PCR Adenovirus (PCR) B. pertussis DNA (PCR) B.parapertussis DNA PCR Coronavirus OC43 (PCR) Coronavirus HKU1 (PCR) Coronavirus 229E (PCR) Coronavirus NL63 (PCR) Human Metapneumovir PCR Influenza A (H1) PCR Influ A (H1N1/09) PCR Influenza A (H3) PCR Influenza A Untype (PCR) Influenza Type B (PCR) M.pneumoniae DNA (PCR) Parainfluenza 1 (PCR) Parainfluenza 2 (PCR) Parainfluenza 3 (PCR) Parainfluenza 4 (PCR) RSV (PCR) Entero/Rhino (PCR) 3 01/29/18 01/29/18 01/29/18 11:34 10:50 10:50 WBC RBC Hgb Hct MCV MCH MCHC RDW Plt Count MPV Immature Gran % Seg Neutrophils % Lymphocytes % Monocytes % Eosinophils % Basophils % Neutrophils # Lymphocytes # Monocytes # Eosinophils # Basophils # Reactive Lymphocytes Platelet Estimate Sodium Potassium Chloride Carbon Dioxide BUN Creatinine Est GFR ( Amer) Est GFR (Non-Af Amer) BUN/Creatinine Ratio Glucose POC Glucose 95 Calculated Osmolality Calcium Phosphorus Magnesium Nasal Screen MRSA (PCR) Negative Chlamy pneumoniae PCR Not Detected Adenovirus (PCR) Not Detected B. pertussis DNA (PCR) Not Detected B.parapertussis DNA PCR Not Detected Coronavirus OC43 (PCR) Not Detected Coronavirus HKU1 (PCR) Not Detected Coronavirus 229E (PCR) Not Detected Coronavirus NL63 (PCR) Not Detected Human Metapneumovir PCR Not Detected Influenza A (H1) PCR Not Detected Influ A (H1N1/09) PCR Not Detected Influenza A (H3) PCR Not Detected Influenza A Untype (PCR) Not Detected Influenza Type B (PCR) Not Detected M.pneumoniae DNA (PCR) Not Detected Parainfluenza 1 (PCR) Not Detected Parainfluenza 2 (PCR) Not Detected Parainfluenza 3 (PCR) Not Detected Parainfluenza 4 (PCR) Not Detected RSV (PCR) Not Detected Entero/Rhino (PCR) Not Detected - Attending Attestation I examined this patient and my medical decision-making was reviewed with the Advanced Practice Nurse, Indigo ruiz. I agree with the documented findings, disposition and treatment plan as described except to the extent set forth below. Inpatient Charges Provider: Dr. Candelaria Gomez Consult - Inpatient: [id number]
[2018-01-30] MEDS: Piperacillin/Tazobactam 3.375 GM in 0.9 % Sodium Chloride Mini Bag 100 ML IVPB SCH ×3 (03:32→21:25)
[2018-01-30] MEDS: Ipratropium/Albuterol Neb 3 ML IH SCH ×4 (03:58→21:40)
[2018-01-30 04:01] LABS: Hematocrit 30.3 % (37.5-50.1); Hemoglobin 9.9 g/dL (12.9-16.9); Lymphocytes # 0.4 K/mcL (0.6-4.6); Lymphocytes % 80.8 %; Mean Corpuscular HGB Conc 32.7 g/dL (31.6-35.5); Mean Corpuscular Hemoglobin 31.3 pg (28.0-33.3); Mean Corpuscular Volume 95.9 fL (83.0-100.0); Mean Platelet Volume 9.7 fL (9.4-12.4); Monocytes % 5.8 %; Neutrophils # 0.1 K/mcL (1.6-8.9); Red Blood Count 3.16 M/mcL (4.19-5.50); Segmented Neutrophils % 13.4 %
[2018-01-30 04:22] LABS: BUN/Creatinine Ratio 23 (6-26); Blood Urea Nitrogen 19 mg/dL (8-23); Carbon Dioxide 19 mEq/L (23-29); Chloride 110 mEq/L (98-107); Glucose 184 mg/dL (70-105); Magnesium 1.8 mg/dL (1.6-2.6); Osmolality,Calculated 291 (280-300); Phosphorous 2.2 mg/dL (2.7-4.5); Potassium 3.8 mEq/L (3.5-5.1); Sodium 137 mEq/L (136-145); eGFR For Non-African Americans > 60 (> 60)
[2018-01-30 04:55] LABS: Platelet Count 65 K/mcL (140-400)
[2018-01-30 05:00] LABS: Platelet Estimate Decreased (Normal); Reactive Lymphocytes Present (Not Present)
[2018-01-30] MEDS: *HR* Heparin 5,000 UNIT/ML VIAL SQ SCH ×4 (06:25→21:40)
[2018-01-30] MEDS: Meropenem 1,000 MG in Water for inj. (sterile) 20 ML 10 ML IVP SCH (06:28)
--- NOTE | 2018-01-30 07:10 | Pulmonology Progress Note ---
<RyansonaEmil W - Last Filed: 01/30/18 08:13> Date of Encounter: 01/30/18 Objective PUL Vital signs: Last Vital Signs Temp 98.3 F 01/30/18 07:42 Pulse 85 01/30/18 07:30 Resp 16 01/30/18 07:00 BP 112/66 01/30/18 07:00 Pulse Ox 92 01/30/18 07:00 Results - Laboratory Findings CBC and BMP: 01/30/18 03:05 01/30/18 03:05 PT/INR, D-dimer PT 11.9 Seconds (9.4-12.1) 01/29/18 02:22 Abnormal lab findings: Abnormal lab results WBC 0.5 K/mcL (4.3-11.1) L* 01/30/18 03:05 RBC 3.16 M/mcL (4.19-5.50) L 01/30/18 03:05 Hgb 9.9 g/dL (12.9-16.9) L D 01/30/18 03:05 Hct 30.3 % (37.5-50.1) L 01/30/18 03:05 Plt Count 65 K/mcL (140-400) L 01/30/18 03:05 Neutrophils # 0.1 K/mcL (1.6-8.9) L 01/30/18 03:05 Lymphocytes # 0.4 K/mcL (0.6-4.6) L 01/30/18 03:05 Reactive Lymphocytes Present (Not Present) A 01/30/18 03:05 Platelet Estimate Decreased (Normal) L 01/30/18 03:05 Chloride 110 mEq/L (98-107) H 01/30/18 03:05 Carbon Dioxide 19 mEq/L (23-29) L 01/30/18 03:05 Glucose 184 mg/dL (70-105) H 01/30/18 03:05 POC Glucose 135 mg/dL (70-99) H 01/30/18 07:48 Calcium 8.0 mg/dL (8.6-10.3) L 01/30/18 03:05 Phosphorus 2.2 mg/dL (2.7-4.5) L 01/30/18 03:05 Total Bilirubin 1.2 mg/dL (0.3-1.0) H 01/29/18 00:54 Direct Bilirubin 0.3 mg/dL (0.0-0.2) H 01/29/18 00:54 Enterobacteriac sp PCR DETECTED (Not Detect) A 01/29/18 02:22 E. coli (PCR) DETECTED (Not Detect) A 01/29/18 02:22 mecA-Methicil Res Gene DETECTED (Not Detect) A 01/29/18 02:22 - Microbiology Findings Microbiology Findings: Microbiology, Last 48 Hours 01/29/18 09:10 Sputum Culture - Preliminary Sputum 01/29/18 09:45 Legionella Antigen - Final Urine,Clean Catch Streptococcus pneumoniae Antigen (M - Final 01/29/18 10:15 Influenza Types A,B Antigen (ERLINDA) - Final Nasopharyngeal - Clinical Findings Intake & Output: Intake & Output 01/29/18 01/30/18 01/30/18 23:59 07:59 15:59 Intake Total 110 / 110 110 / 110 Output Total 450 / 450 600 / 600 Balance -340 / -340 -490 / -490 Weight 65.5 kg Consult Discharge Plan - Plan Referrals: Macario Yarbrough DO [Primary Care Provider] - - Attending Attestation I examined this patient and my medical decision-making was reviewed with the Resident Physician. I agree with the documented findings, disposition and treatment plan as described except to the extent set forth below. We independently had [id number] contact with the patient Patient seen and examined at bedside Labs, radiology, chart personally reviewed. Impression: Severe sepsis Neutropenia Escherichia coli bacteremia COPD exacerbation Chronic respiratory failure Lung cancer Recs: -Improving blood pressure stable no longer tachycardic -Worsening leukopenia remains afebrile may be candidate for granulocyte colony- stimulating factor -Continue antibiotics (meropenem) for concern of MDR oh based upon final sensitivities may need ID consult for long-term antimicrobial which I suspect would be 10-14 days -Continue schedule bronchodilators prednisone 40 mg 5 days -Supplemental oxygen to keep saturation greater than 88% -Oncology has been consulted Stable for transfer to the floor pulmonary will sign off please call with any questions <Eagle Campbell - Last Filed: 01/30/18 12:11> Date of Encounter: 01/30/18 Time of Encounter: 07:05 Assessment and Plan (1) Sepsis Current Visit: Yes Status: Acute Patient did present with severe sepsis initially with hypotension and WBC of 1. Chest x-ray and CT chest findings are suggestive of pneumonia. Evidence of UTI on initial urinalysis with urine sent for culture. Patient was started on broad-spectrum antibiotic coverage with Zosyn and vancomycin. Blood cultures reveal gram-negative Enterobacteriaceae, final result and sensitivity pending. Respiratory panel and influenza negative. Strep pneumonia and legionella negative. Nursing staff did report to ICU physician that a resistant ecoli was identified by microbiology, patient was subsequently started on meropenem for broader coverage. It was clarified with microbiology today that Escherichia coli identified is not resistant, however final cultures are pending. Will discontinue meropenem at this time and continue with day 2 of Zosyn. MRSA nasal swab was negative, testing did reveal Meca positive Staphylococcus however the strain identified was not staph aureus and vancomycin has been discontinued. Qualifiers: Sepsis type: sepsis due to unspecified organism Qualified Code(s): A41.9 - Sepsis, unspecified organism (2) Pneumonia Current Visit: No Status: Acute Evidence of pneumonia on chest x-ray and chest CT. Patient does have history of lung cancer currently being treated at [facility] and is on chemotherapy. Legionella and strep pneumo antigens are negative. Respiratory panel negative and influenza testing negative. Blood cultures have demonstrated gram-negative Enterobacteriaceae We will continue with day 2 of Zosyn. Qualifiers: Pneumonia type: due to unspecified organism Laterality: left Lung location: lower lobe of lung Qualified Code(s): J18.1 - Lobar pneumonia, unspecified organism (3) Neutropenia Current Visit: Yes Status: Acute Significant neutropenia. WBC total is 500 today decreased from 1000 yesterday and absolute neutrophil count is 67. Patient remains afebrile and on antibiotic therapy with Zosyn. No clinical indication of worsening infections. Oncology was consultation by primary team and patient did receive 1 dose of filgrastim yesterday evening. Further recommendations are pending oncology evaluation, appreciate their recommendations. Qualifiers: Neutropenia type: secondary to cancer chemotherapy Qualified Code(s): D70.1 - Agranulocytosis secondary to cancer chemotherapy; T45.1X5A - Adverse effect of antineoplastic and immunosuppressive drugs, initial encounter (4) Chronic respiratory failure with hypoxia Current Visit: Yes Status: Acute Patient does have history significant for lung cancer currently being treated chemotherapy. He is an active smoker. Patient saturating in the high 90s on 2 L oxygen supplementation by and see. Viral respiratory panel negative, radiographic evidence concerning for pneumonia. Continue with antibiotics, breathing treatments, 40 mg prednisone for total duration of 5 days, and when necessary albuterol. (5) Lung cancer Current Visit: Yes Status: Chronic Known history of lung cancer currently treated with chemotherapy. Patient endorses prior radiation therapy. Patient continues has active smoker. 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 Significant neutropenia persisted. Recommend formal oncology consultation and evaluation, patient may be candidate for additional filgrastim. Qualifiers: Laterality: right Lung location: unspecified part of lung Qualified Code( s): C34.91 - Malignant neoplasm of unspecified part of right bronchus or lung Subjective Principal diagnosis: Dizziness Interval history: No acute events overnight reported. Patient sitting comfortably at the bedside eating breakfast upon evaluation this morning. Reporting the dizziness has improved. Objective PUL Vital signs: Last Vital Signs Temp 98.9 F 01/30/18 04:00 Pulse 86 01/30/18 06:00 Resp 22 01/30/18 06:00 BP 117/70 01/30/18 04:00 Pulse Ox 92 01/30/18 06:00 General appearance: no acute distress Eyes: nonicteric ENT: oropharynx moist Neck: supple, no lymphadenopathy Effort: normal Auscultation: right: diminished breath sounds Cardiovascular: regular rate and rhythm Gastrointestinal: normoactive bowel sounds, soft, non-distended Integumentary: normal, other (Small areas of ecchymosis of upper extremities) Extremities: no cyanosis, no edema, pink and warm Musculoskeletal: no deformities Gait: normal posture normal mental status, non-focal exam mood appropriate Results - Laboratory Findings CBC and BMP: 01/30/18 03:05 01/30/18 03:05 PT/INR, D-dimer PT 11.9 Seconds (9.4-12.1) 01/29/18 02:22 Abnormal lab findings: Abnormal lab results WBC 0.5 K/mcL (4.3-11.1) L* 01/30/18 03:05 RBC 3.16 M/mcL (4.19-5.50) L 01/30/18 03:05 Hgb 9.9 g/dL (12.9-16.9) L D 01/30/18 03:05 Hct 30.3 % (37.5-50.1) L 01/30/18 03:05 Plt Count 65 K/mcL (140-400) L 01/30/18 03:05 Neutrophils # 0.1 K/mcL (1.6-8.9) L 01/30/18 03:05 Lymphocytes # 0.4 K/mcL (0.6-4.6) L 01/30/18 03:05 Reactive Lymphocytes Present (Not Present) A 01/30/18 03:05 Platelet Estimate Decreased (Normal) L 01/30/18 03:05 Chloride 110 mEq/L (98-107) H 01/30/18 03:05 Carbon Dioxide 19 mEq/L (23-29) L 01/30/18 03:05 Glucose 184 mg/dL (70-105) H 01/30/18 03:05 POC Glucose 168 mg/dL (70-99) H 01/29/18 15:41 Calcium 8.0 mg/dL (8.6-10.3) L 01/30/18 03:05 Phosphorus 2.2 mg/dL (2.7-4.5) L 01/30/18 03:05 Total Bilirubin 1.2 mg/dL (0.3-1.0) H 01/29/18 00:54 Direct Bilirubin 0.3 mg/dL (0.0-0.2) H 01/29/18 00:54 Enterobacteriac sp PCR DETECTED (Not Detect) A 01/29/18 02:22 E. coli (PCR) DETECTED (Not Detect) A 01/29/18 02:22 mecA-Methicil Res Gene DETECTED (Not Detect) A 01/29/18 02:22 - Microbiology Findings Microbiology Findings: Microbiology, Last 48 Hours 01/29/18 09:10 Sputum Culture - Preliminary Sputum 01/29/18 09:45 Legionella Antigen - Final Urine,Clean Catch Streptococcus pneumoniae Antigen (M - Final 01/29/18 10:15 Influenza Types A,B Antigen (ERLINDA) - Final Nasopharyngeal - Clinical Findings Intake & Output: Intake & Output 01/29/18 01/29/18 01/30/18 15:59 23:59 07:59 Intake Total 100 / 100 110 / 110 110 / 110 Output Total 1999 450 / 450 300 / 300 Balance -1900 / -1900 -340 / -340 -190 / -190 Weight 65.5 kg
[2018-01-30] MEDS: Insulin LISPRO 300 UNITS/3 ML VIAL SQ SCH ×2 (07:49→11:59)
[2018-01-30] MEDS: predniSONE 20 MG TABLET PO SCH (07:59)
[2018-01-30] MEDS ORDERED: Meropenem 1,000 MG in Water for inj. (sterile) 20 ML 10 ML IVP SCH (08:00)
[2018-01-30 09:22] LABS: Staphylococcus by PCR DETECTED (Not Detect)
[2018-01-30] MEDS: *HR* OxyCODONE/APAP 10/325 TABLET PO PRN (13:29)
[2018-01-30] MEDS: ALPRAZolam 1 MG TABLET PO PRN (13:29)
[2018-01-30] MEDS ORDERED: *HR* OxyCODONE/APAP 10/325 TABLET PO PRN (13:56)
[2018-01-30] MEDS ORDERED: ALPRAZolam 1 MG TABLET PO PRN (13:56)
[2018-01-30] MEDS ORDERED: *HR* Dextrose 50 % in Water (Syg) 50 ML SYRINGE IVP PRN (13:56)
[2018-01-30] MEDS ORDERED: D5% in Water 1,000 ML IVC PRN (13:56)
[2018-01-30] MEDS ORDERED: Albuterol 2.5 MG/3 ML NEBULIZER IH PRN (13:56)
[2018-01-30] MEDS ORDERED: Acetaminophen 325 MG TABLET PO PRN (13:56)
[2018-01-30] MEDS ORDERED: Naloxone 0.4 MG/ML INJ IVP PRN (13:56)
[2018-01-30] MEDS ORDERED: Dextrose Gel 15 GM/37.5 ML TUBE PO PRN ×2 (13:56)
--- NOTE | 2018-01-30 15:52 | Internal Med Progress Note ---
Hospitalist Progress Note - Encounter Date of Encounter: 01/30/18 Time of Encounter: 10:00 - Subjective Interval History: patient was seen and examined at bedside he reports that he is feeling much better than yesterday denies pain, denies SOB, N/V/D. tolerating PO diet no events over night - Exam Vitals: Temp Pulse Resp BP Pulse Ox 98.2 F 110 16 138/79 95 01/30/18 12:00 01/30/18 14:00 01/30/18 14:00 01/30/18 14:00 01/30/18 14:00 Exam: General: Patient is alert, oriented, no acute distress, speaks in full sentences Head: atraumatic, normocephalic, Eye: normal appearance, PERRL, no scleral icterus, no conjunctival injection ENT: mucous membranes moist, normal external ear exam Neck: normal inspection, trachea midline, full ROM, no carotid bruits Chest: normal inspection, symmetric chest rise Respiratory: Good respiratory effort. decreased breath sounds bilaterally Cardiovascular: tachycardic s1 and s2 No clicks, rubs, gallops, or murmors. Abdomen: Bowel sounds present normoactive x-4 quadrants. Abdomen is soft, nondistended. no Epigastric tenderness. No guarding or rebound. No organomegaly noted, has ostomy with good output and gas in the LLQ musculoskeletal: Spontaneously moving all extremities. no edema, no calf tenderness Skin: warm, dry, intact. Neuro: Alert and oriented x4. Sensation light touch intact. Cranial nerves 2- 12 is intact. Not aphasic, gait is steady, rapid hand movements intact, finger- to-nose intact, Psych: Patient's affect is normal - Assessment and Plan (1) E coli bacteremia Current Visit: Yes Status: Acute Assessment and Plan: was started on zosyn IV will send 2 more bcx ID consult in the AM (2) Severe sepsis Current Visit: Yes Status: Acute Assessment and Plan: Respiratory panel and influenza negative. Strep pneumonia and legionella negative. 1 bcx growing gram negative sputum cx pending Nursing staff did report to ICU physician that a resistant ecoli was identified by microbiology, patient was subsequently started on meropenem for broader coverage. It was clarified with microbiology today that Escherichia coli identified is not resistant, however final cultures are pending. Will discontinue meropenem at this time and continue with day 2 of Zosyn. MRSA nasal swab was negative, testing did reveal Meca positive Staphylococcus however the strain identified was not staph aureus and vancomycin has been discontinued. rest of management as per above (3) Leukopenia due to antineoplastic chemotherapy Current Visit: Yes Status: Acute Assessment and Plan: hematology and oncology on board he recieved neupogen on 01/29/18 will follow further recommendations on neutropenic precautions. (4) Acute exacerbation of chronic obstructive airways disease Current Visit: No Status: Resolved Assessment and Plan: started on prednisone 40 mg x 5 days continue bronchodilators supplemental Oxygen to keep Oxygens >88% pulmonology on board (5) Chronic respiratory failure with hypoxia Current Visit: Yes Status: Acute Assessment and Plan: management as per above (6) Acute renal failure Current Visit: Yes Status: Acute Assessment and Plan: was tr eated with IVF with resolution continue to monitor renal functions (7) Lung cancer Current Visit: Yes Status: Chronic Assessment and Plan: follows at [facility] receives chemotherapy 3x per week as per patient last chemotherapy approx jan 14 (8) Diabetes mellitus Current Visit: No Status: Chronic Assessment and Plan: continue finger sticks and sliding scale (9) DVT prophylaxis Current Visit: Yes Status: Acute Assessment and Plan: heparin sc if the platelets continue to trend down will switch to SCDs - Time Spent with Patient Total time spent is greater than 50% in coordination of care (as documented) at patient's floor/unit and/or counseling patient: Internal Medicine: Result - Labs CBC & Chem 7: 01/30/18 03:05 01/30/18 03:05 Labs: Short CBC 01/30/18 Range/Units 03:05 WBC 0.5 L* (4.3-11.1) K/mcL Hgb 9.9 L D (12.9-16.9) g/dL Hct 30.3 L (37.5-50.1) % Plt Count 65 L (140-400) K/mcL Neutrophils # 0.1 L (1.6-8.9) K/mcL BMP 01/30/18 03:05 Sodium 137 Potassium 3.8 Chloride 110 H Carbon Dioxide 19 L BUN 19 Creatinine 0.81 Glucose 184 H Calcium 8.0 L - ABG Interpretation ABG results: PT/INR, D-dimer PT 11.9 Seconds (9.4-12.1) 01/29/18 02:22 Consult Discharge Plan - Plan Referrals: Macario Yarbrough DO [Primary Care Provider] - (7) Lung cancer Qualifiers: Laterality: right Lung location: unspecified part of lung Qualified Code(s) : C34.91 - Malignant neoplasm of unspecified part of right bronchus or lung (8) Diabetes mellitus Qualifiers: Diabetes mellitus type: type 2 Diabetes mellitus detention insulin use: without detention use Diabetes mellitus complication status: without complication Qualified Code(s): E11.9 - Type 2 diabetes mellitus without complications
[2018-01-30] MEDS ORDERED: Insulin LISPRO 300 UNITS/3 ML VIAL SQ SCH (16:30)
[2018-01-31 01:38] LABS: Hematocrit 27.6 % (37.5-50.1); Hemoglobin 9.1 g/dL (12.9-16.9); Mean Corpuscular Volume 93.9 fL (83.0-100.0); Red Blood Count 2.94 M/mcL (4.19-5.50); Red Cell Distribution Width 13.7 % (11.5-14.5)
[2018-01-31 01:44] LABS: Platelet Count 46 K/mcL (140-400)
[2018-01-31 01:57] VITALS: BP 149/91
[2018-01-31 01:57] LABS: Blood Urea Nitrogen 17 mg/dL (8-23); Carbon Dioxide 18 mEq/L (23-29); Chloride 111 mEq/L (98-107); Glucose 155 mg/dL (70-105); Osmolality,Calculated 289 (280-300); Potassium 3.6 mEq/L (3.5-5.1); Sodium 137 mEq/L (136-145)
[2018-01-31 02:30] LABS: Lymphocytes # 0.6 K/mcL (0.6-4.6); Neutrophils # 0.1 K/mcL (1.6-8.9); Platelet Estimate Marked Decrease (Normal)
[2018-01-31 02:39] LABS: BUN/Creatinine Ratio 22 (6-26); eGFR For Non-African Americans > 60 (> 60)
[2018-01-31] MEDS: Ipratropium/Albuterol Neb 3 ML IH SCH (03:58)
[2018-01-31] MEDS: Piperacillin/Tazobactam 3.375 GM in 0.9 % Sodium Chloride Mini Bag 100 ML IVPB SCH (04:32)
--- NOTE | 2018-01-31 08:32 | Internal Med Progress Note ---
Hospitalist Progress Note - Encounter Date of Encounter: 01/31/18 - Exam Vitals: Temp Pulse Resp BP Pulse Ox 98.2 F 108 18 149/91 94 01/30/18 19:45 01/30/18 19:45 01/31/18 04:05 01/30/18 19:45 01/31/18 04:05 - Assessment and Plan (1) Severe sepsis Status: Acute Assessment and Plan: Respiratory panel and influenza negative as well as Strep pneumonia and legionella negative. However patient's sputum and blood cultures positive for gram-negative rods. Continue IV antibiotics as below Infectious disease has been consulted and appreciate recommendations (2) Community acquired pneumonia Status: Suspected Assessment and Plan: Patient has had about a month of cold symptoms with productive cough Chest x-ray was worrisome for recurrent lung disease, unable to determine if superimposed pneumonia Patient with gram-negative rods in sputum and blood as above Continue day 3 of IV Zosyn Infectious disease consulted as above (3) E coli bacteremia Status: Acute Assessment and Plan: Repeat cultures pending Continue day 3 of IV Zosyn and infectious disease consulted as above (4) Lung cancer Status: Chronic Assessment and Plan: 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 follows at [facility] Patient receives chemotherapy 3x per week as per patient; last chemotherapy approx jan 14 (5) Leukopenia due to antineoplastic chemotherapy Status: Acute Assessment and Plan: Patient has recieved neupogen on 01/29/18 Continue neutropenic precautions Hematology/oncology following and appreciate recommendations (6) Acute exacerbation of chronic obstructive airways disease Status: Resolved Assessment and Plan: Continue by mouth prednisone (7) Acute renal failure Status: Acute Assessment and Plan: Resolved; continue to monitor (8) Diabetes mellitus Status: Chronic Assessment and Plan: Coverage with sliding-scale insulin (9) DVT prophylaxis Status: Acute Assessment and Plan: SCDs due to thrombocytopenia - Time Spent with Patient Total time spent is greater than 50% in coordination of care (as documented) at patient's floor/unit and/or counseling patient: Internal Medicine: Result - Labs CBC & Chem 7: 01/31/18 01:25 01/31/18 01:25 Labs: Short CBC 01/31/18 Range/Units 01:25 WBC 0.7 L* (4.3-11.1) K/mcL Hgb 9.1 L (12.9-16.9) g/dL Hct 27.6 L (37.5-50.1) % Plt Count 46 L (140-400) K/mcL Neutrophils # 0.1 L (1.6-8.9) K/mcL BMP 01/31/18 01:25 Sodium 137 Potassium 3.6 Chloride 111 H Carbon Dioxide 18 L BUN 17 Creatinine 0.78 Glucose 155 H Calcium 8.0 L - ABG Interpretation ABG results: PT/INR, D-dimer PT 11.9 Seconds (9.4-12.1) 01/29/18 02:22 Consult Discharge Plan - Plan Referrals: Macario Yarbrough DO [Primary Care Provider] - (2) Community acquired pneumonia Qualifiers: Laterality: right Lung location: unspecified part of lung Qualified Code(s) : J18.9 - Pneumonia, unspecified organism (4) Lung cancer Qualifiers: Laterality: right Lung location: unspecified part of lung Qualified Code(s) : C34.91 - Malignant neoplasm of unspecified part of right bronchus or lung (8) Diabetes mellitus Qualifiers: Diabetes mellitus type: type 2 Diabetes mellitus prison insulin use: without ad 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
[2018-01-31] MEDS ORDERED: predniSONE 20 MG TABLET PO SCH (09:00)
--- NOTE | 2018-02-03 08:39 | Discharge Summary ---
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 use: without prison use Diabetes mellitus complication status: without complication Qualified Code(s): E11.9 - Type 2 diabetes mellitus without complications (4) Lung cancer Priority: Primary Status: Chronic Qualifiers: Laterality: right Lung location: unspecified part of lung Qualified Code( s): C34.91 - Malignant neoplasm of unspecified part of right bronchus or lung (5) Leukopenia due to antineoplastic chemotherapy Priority: Primary Status: Acute (6) Acute renal failure Priority: Primary Status: Acute Qualifiers: Acute renal failure type: unspecified Qualified Code(s): N17.9 - Acute kidney failure, unspecified (7) Severe sepsis Priority: Primary Status: Acute (8) E coli bacteremia Priority: Primary Status: Acute (9) DVT prophylaxis Priority: Primary Status: Acute Hospital course: Mr. Arvizu is a 82 year old male who presented to the emergency department for c/o generalized weakness. History significant for small cell lung cancer and is followed by Dr. Maya at [facility]; last chemo treatment at [facility] was 01/20/18 with Carboplatin/Etoposide. He was noted to be hypotensive with SBP < 90 mmHg on arrival to ED and quickly responded to IV fluids. Initial labs showed leukopenia WBC 1.0, platelet count 107k, his ANC was 200, and he was afebrile. CXR and CT chest suspicious for possible pneumonia in setting of underlying lung cancer. Blood and sputum cultures were sent and empiric IV antibiotics vancomycin, zosyn, and levaquin were given. MRSA swab negative, legionella and strep pneumoniae antigens negative, viral respiratory panel negative. Blood and sputum cultures grew E.coli and zosyn was continued. He received two doses of filgrastim. He was also treated for COPD exacerbation with bronchodilators and oral steroids. On 01/31/18 the patient chose to leave against medical advice. He was educated on the severity of his neutropenia and the risks of leaving the hospital without completing treatment for his pneumonia, including and not limited to worsening of pneumonia and . He verbalized his understanding, but still chose to leave against medical advice. He was educated on importance of wearing a mask due to his neutropenia. He was educated to come back to the hospital immediately for fevers, chills, or worsening of his pneumonia; he verbalized understanding. AMA paperwork was completed and signed by the patient and myself as the discharging clinician. Discharge discussed with: patient, family, nurse Time spent discussing smoking cessation with patient: 3 to 10 minutes - Time Spent with Patient Total time spent providing and/or coordinating discharge services: Less than 30 minutes - Discharge Medications Home Medications: ALPRAZolam [Xanax 1 MG Tablet] 1 mg PO QID PRN 09/12/15 [History] Albuterol Sulfate [Albuterol Inhaler] 2 puff IH Q6HR PRN 09/12/15 [History] Atorvastatin Calcium [Lipitor] 80 mg PO DAILY 09/12/15 [History] Metformin HCl [Glucophage] 1,000 mg PO BID 09/12/15 [History] Potassium Chloride [K-Tab ER] 10 meq PO BID 09/12/15 [History] Olmesartan Medoxomil [Benicar] 5 mg PO DAILY 01/29/18 [History] Oxycodone HCl/Acetaminophen [Endocet 10-325 mg Tablet] 1 tab PO 5XD 01/30/18 [ History] Tamsulosin [Flomax] 0.4 mg PO BID 01/30/18 [History] Tiotropium [Spiriva] 18 mcg PO DAILY 01/30/18 [History] Prochlorperazine Maleate [Compazine] 10 mg PO Q6HR 02/02/18 [History] Varenicline Tartrate [Chantix Continuing Months Pack] 1 each PO AD 02/02/18 [ History] Allergies/Adverse Reactions: 3 Allergy/AdvReac Type Severity Reaction Status Date / Time No Known Allergies Allergy Verified 09/12/15 11:18 Date of admission: 01/29/18 08:34 Primary care physician: Macario Yarbrough DO Consults: 01/29/18 16:58 Consult to Oncology Hematology [CONS] Routine Consulting Provider: Vimal Gomez Reason for Consult: pancytopenia, neutropenia Call Completed: Yes 01/31/18 07:09 Consult to Infectious Diseases [CONS] Routine Consulting Provider: [facility] [place] Reason for Consult: neutropenia, gram negative in sputum and blood. on zosyn Call Completed: No Discharging clinician: Sharee Knight - Constitutional Vitals: Temp Pulse Resp BP Pulse Ox 98.2 F 108 18 149/91 94 01/30/18 19:45 01/30/18 19:45 01/31/18 04:05 01/30/18 19:45 01/31/18 04:05 General appearance: Present: A&O X 3, answers questions appropriately Exam: . - Head Head exam: Present: atraumatic, normocephalic - Eye Eye exam: Present: EOMI, PERRL, sclera anicteric Pupils: Present: PERRL - Neck Neck exam general surgery: Present: supple, trachea midline - Respiratory Respiratory exam: Absent: respiratory distress, tachypnea - Extremities Exam Extremities exam: Present: full ROM, warm - Neurological Exam Neurological exam: Present: alert, CN II-XII intact, normal gait, oriented X3, no focal deficits - Psychiatric Psychiatric exam: Present: agitated - Skin Skin exam: Present: dry, intact, warm - Patient Status Disposition: Left Against Medical Advice Condition: Fair Functional capacity at discharge: independent ambulation - Discharge Instructions Follow Up With: Macario Yarbrough DO [Primary Care Provider] -
== END 2018-01-31 06:30 | disposition left against medical advice (07) | DRG 871 ==
LOC: ICNU 00:41 → EMEROOARM 00:41 → ICNU 06:04 → SUATTDRO 08:34 → 3ANU 01-30 15:44
PROVIDERS: ADMIT Internal Medicine; ATTEND Hospitalist

== ENCOUNTER 2018-02-02 16:59 | Inpatient (IN) ==
[2018-02-02] MEDS ORDERED: 0.9 % Sodium Chloride 1,000 ML IVC ONE (17:06)
[2018-02-02] MEDS ORDERED: Ipratropium/Albuterol Neb 3 ML IH ONE (17:08)
--- NOTE | 2018-02-02 17:09 | Emergency Department Note ---
Disposition Clinical Impression: Atrial fibrillation with RVR, Fever Disposition: Admitted As Inpatient Condition: Fair Time of Disposition: 20:28 General Adult HPI - General Chief complaint: ED Fever Stated complaint: fever Time Seen by Provider: 02/02/18 17:06 Nursing Notes Reviewed: Yes Vital Signs Reviewed: Yes - History of Present Illness HPI Narrative: 82-year-old male with lung cancer persisted emergency department with concern for fever. Patient had chemotherapy recently at [facility] last few days. Does not have a port in place. Patient not reporting pain anywhere. He just says he is feeling terrible. Very weak. Reports temperature 102. Has symptoms of cough. States he has decreased urination. Pain Scale: 0 - Related Data Home Medications Medication Instructions Recorded Confirmed ALPRAZolam [Xanax 1 MG Tablet] 1 mg PO QID PRN 09/12/15 01/30/18 Albuterol Sulfate [Albuterol 2 puff IH Q4H PRN 09/12/15 01/30/18 Inhaler] Atorvastatin Calcium [Lipitor] 80 mg PO DAILY 09/12/15 01/30/18 Metformin HCl [Glucophage] 1,000 mg PO BID 09/12/15 01/30/18 Potassium Chloride [K-Tab ER] 10 meq PO BID 09/12/15 01/30/18 Olmesartan Medoxomil [Benicar] 5 mg PO DAILY 01/29/18 01/30/18 Oxycodone HCl/Acetaminophen 1 tab PO 5XD 01/30/18 01/30/18 [Endocet 10-325 mg Tablet] Tamsulosin [Flomax] 0.4 mg PO BID 01/30/18 01/30/18 Tiotropium [Spiriva] 18 mcg PO DAILY 01/30/18 01/30/18 Advair 500-50 Diskus 02/02/18 Chantix 02/02/18 02/02/18 Compazine 02/02/18 Ventolin Hfa 02/02/18 guaiFENesin 02/02/18 02/02/18 Allergies Allergy/AdvReac Type Severity Reaction Status Date / Time No Known Allergies Allergy Verified 09/12/15 11:18 All systems ED: reviewed and negative except as stated. Review of Systems: As Per HPI Constitutional: Reports: fever Cardiovascular: Denies: chest pain Respiratory: Reports: cough, dyspnea. Denies: wheezes, sputum production Gastrointestinal: Denies: abdominal pain, nausea, vomiting Genitourinary: Reports: frequency (Decreased). Denies: urgency, dysuria Musculoskeletal: Denies: back pain Integumentary: Denies: rash Neurological: Reports: weakness Endocrine: Reports: fatigue Past Medical History - Past Medical History Medical history: Reports: cancer, diabetes, hypertension Surgical history: Reports: colostomy Psychiatric history: Reports: anxiety - Social History Smoking Status: Current every day smoker Smokeless Tobacco Status: No Alcohol use: Reports: none Drug use: Reports: none Physical Exam - General General appearance: alert, in no apparent distress - Head Head exam: normocephalic - Eye Eye exam: Present: EOMI - ENT ENT exam: mucous membranes dry - Neck Neck exam: Present: trachea midline - Chest Chest inspection: Present: symmetric chest wall rise - Respiratory Respiratory exam: Present: wheezes (Mild throughout). Absent: respiratory distress, accessory muscle use - Cardiovascular Cardiovascular exam: Present: normal rhythm, tachycardia, normal heart sounds - Abdominal Exam Abdominal exam: Present: soft, Non-Tender. Absent: distention, guarding, rebound, rigidity - Extremities Exam Extremities exam: Present: normal capillary refill - Back Exam Back exam: Present: full ROM - Neurological Exam Neurological exam: Present: alert, oriented X3, CN II-XII intact - Psychiatric Psychiatric exam: Present: normal affect, normal mood - Skin Skin exam: Present: warm, dry, intact, normal color. Absent: rash Course Vital Signs Temperature 98.3 F 02/02/18 17:04 Pulse Rate 100 02/02/18 17:04 Respiratory Rate 23 02/02/18 17:04 Blood Pressure 139/79 02/02/18 17:04 O2 Sat by Pulse Oximetry 99 02/02/18 17:04 Temperature 98.3 F 02/02/18 17:04 Pulse Rate 100 02/02/18 17:04 Respiratory Rate 18 02/02/18 17:23 Blood Pressure 139/79 02/02/18 17:04 O2 Sat by Pulse Oximetry 98 02/02/18 17:23 Oxygen Delivery Oxygen Delivery Room Air Medical Decision Making - MDM Narrative Medical decision making narrative: 82-year-old male presents emergency department with concern for fever. Patient afebrile here. Was afebrile at the clinic. However, we will obtain chest x-ray, blood cultures, lactic acid, CBC, BMP. He has some mild wheezes on lung exam. We will provide patient with DuoNeb's. DuoNeb's not help patient to rate anymore. Chest x-ray did not reveal any significant change in the masslike density within the right lower lung, however he could not indicate whether there was a superimposed infection or not. As time, we will cover patient with vancomycin, Zosyn, Levaquin for a clinical healthcare associated pneumonia. Initially, patient's EKG reveals sinus rhythm with a rate of 97. However, at the time of admission, patient went to atrial fibrillation with RVR with a rate as high as 150. Patient reports never having a history of this. He states that he is not feeling chest pain, pressure, tightness, or even any palpitations. Most likely cause of atrial fibrillation with RVR is pneumonia. Spoke with the hospitalist about admission. He agreed to accept the patient. He requested that we obtain a CTA to rule out pulmonary embolus. This has been ordered. Hospitalist agreed to follow-up on this. As far as atrophic place with RVR, we will provide Cardizem bolus as well as Cardizem drip. Hospitalist requested that we also start heparin. This is been ordered as well. Bedside cardiac ultrasound did not reveal any pericardial effusion. Discussed the findings with family at bedside. They agree with plan. Patient admitted. Hemodynamically stable and not in any acute distress, eating food in the room. Chest X-Ray 02/02/18 17:07 IMPRESSION: No significant change in the masslike density within the right lower lung, accounting for differences in technique. Findings could represent pulmonary malignancy with or without superimposed infection. No evidence of significant pleural effusion, or pneumothorax. D/ / 02/02/2018 18:29:54 Tonny Jay MD / edilia Interpreting Provider: Tonny Jay MD - Lab Data Result diagrams: 02/02/18 19:50 02/02/18 17:51 Lab Results 02/02/18 02/02/18 02/02/18 Range/Units 17:22 17:51 17:51 WBC 3.0 L D (4.3-11.1) K/mcL RBC 3.25 L (4.19-5.50) M/mcL Hgb 10.1 L (12.9-16.9) g/dL Hct 30.6 L (37.5-50.1) % MCV 94.2 (83.0-100.0) fL MCH 31.1 (28.0-33.3) pg MCHC 33.0 (31.6-35.5) g/dL RDW 14.0 (11.5-14.5) % Plt Count 56 L (140-400) K/mcL MPV 10.6 (9.4-12.4) fL Immature Gran % 1.0 (0-4) % Seg Neutrophils % 52.2 % Lymphocytes % 32.7 % Monocytes % 13.5 % Eosinophils % 0.3 % Basophils % 0.3 % Neutrophils # 1.6 (1.6-8.9) K/mcL Lymphocytes # 1.0 (0.6-4.6) K/mcL Monocytes # 0.4 (0.0-1.3) K/mcL Eosinophils # 0.0 (0.0-0.6) K/mcL Basophils # 0.0 (0.0-0.2) K/mcL Platelet Estimate Marked Decrease L (Normal) Immature Plt Fraction 3.0 (1.1-6.1) % PT (9.4-12.1) Seconds INR Heparin Anti-Xa, Unfract (0.30-0.70) IU/mL Sodium 137 (136-145) mEq/L Potassium 3.6 (3.5-5.1) mEq/L Chloride 107 (98-107) mEq/L Carbon Dioxide 23 (23-29) mEq/L BUN 13 (8-23) mg/dL Creatinine 0.86 (0.70-1.30) mg/dL Est GFR ( Amer) > 60 (> 60) Est GFR (Non-Af Amer) > 60 (> 60) BUN/Creatinine Ratio 15 (6-26) Glucose 114 H (70-105) mg/dL Calculated Osmolality 285 (280-300) Lactic Acid (0.5-2.2) mmol/L Calcium 8.8 (8.6-10.3) mg/dL Phosphorus 3.0 (2.7-4.5) mg/dL Magnesium 2.0 (1.6-2.6) mg/dL Total Bilirubin 0.6 (0.3-1.0) mg/dL Direct Bilirubin 0.2 (0.0-0.2) mg/dL Indirect Bilirubin 0.4 (0.0-1.2) mg/dL AST 26 (13-39) Units/L ALT 84 H (7-52) Units/L Alkaline Phosphatase 80 (34-104) Units/L Troponin I 0.03 (< 0.04) ng/mL Serum Total Protein 6.3 L (6.4-8.9) g/dL Albumin 3.5 (3.5-5.7) g/dL Globulin 2.8 (2.4-3.5) g/dL Albumin/Globulin Ratio 1.3 (1.1-2.2) Urine Color Yellow (Yellow) Urine Clarity Clear (Clear) Urine pH 7.5 (5.0-8.0) pH Units Ur Specific Dillon 1.013 (1.010-1.025) Urine Protein Trace (Neg-Trace) mg/dL Urine Glucose (UA) Normal (Normal) mg/dL Urine Ketones Negative (Negative) mg/dL Urine Blood Negative (Negative) Urine Nitrite Negative (Negative) Urine Bilirubin Negative (Negative) Urine Urobilinogen Normal (Normal) mg/dL Ur Leukocyte Esterase Negative (Negative) Urine Microscopic RBC 0-3 (0-3) per hpf Urine Microscopic WBC 0-3 (0-3) per hpf Ur Squamous Epith Cells None Seen (None-Few) per lpf Urine Bacteria None Seen (None-Few) per hpf Hyaline Casts None Seen (None-Few) per lpf Ur Culture Indicated? NO (NO) 02/02/18 02/02/18 02/02/18 Range/Units 17:51 19:50 19:50 WBC 2.3 L (4.3-11.1) K/mcL RBC 3.31 L (4.19-5.50) M/mcL Hgb 10.2 L (12.9-16.9) g/dL Hct 31.4 L (37.5-50.1) % MCV 94.9 (83.0-100.0) fL MCH 30.8 (28.0-33.3) pg MCHC 32.5 (31.6-35.5) g/dL RDW 13.9 (11.5-14.5) % Plt Count 49 L (140-400) K/mcL MPV 10.4 (9.4-12.4) fL Immature Gran % (0-4) % Seg Neutrophils % % Lymphocytes % % Monocytes % % Eosinophils % % Basophils % % Neutrophils # (1.6-8.9) K/mcL Lymphocytes # (0.6-4.6) K/mcL Monocytes # (0.0-1.3) K/mcL Eosinophils # (0.0-0.6) K/mcL Basophils # (0.0-0.2) K/mcL Platelet Estimate (Normal) Immature Plt Fraction 3.0 (1.1-6.1) % PT 11.7 (9.4-12.1) Seconds INR 1.0 Heparin Anti-Xa, Unfract 0.02 L (0.30-0.70) IU/mL Sodium (136-145) mEq/L Potassium (3.5-5.1) mEq/L Chloride (98-107) mEq/L Carbon Dioxide (23-29) mEq/L BUN (8-23) mg/dL Creatinine (0.70-1.30) mg/dL Est GFR ( Amer) (> 60) Est GFR (Non-Af Amer) (> 60) BUN/Creatinine Ratio (6-26) Glucose (70-105) mg/dL Calculated Osmolality (280-300) Lactic Acid 0.9 (0.5-2.2) mmol/L Calcium (8.6-10.3) mg/dL Phosphorus (2.7-4.5) mg/dL Magnesium (1.6-2.6) mg/dL Total Bilirubin (0.3-1.0) mg/dL Direct Bilirubin (0.0-0.2) mg/dL Indirect Bilirubin (0.0-1.2) mg/dL AST (13-39) Units/L ALT (7-52) Units/L Alkaline Phosphatase (34-104) Units/L Troponin I (< 0.04) ng/mL Serum Total Protein (6.4-8.9) g/dL Albumin (3.5-5.7) g/dL Globulin (2.4-3.5) g/dL Albumin/Globulin Ratio (1.1-2.2) Urine Color (Yellow) Urine Clarity (Clear) Urine pH (5.0-8.0) pH Units Ur Specific Dillon (1.010-1.025) Urine Protein (Neg-Trace) mg/dL Urine Glucose (UA) (Normal) mg/dL Urine Ketones (Negative) mg/dL Urine Blood (Negative) Urine Nitrite (Negative) Urine Bilirubin (Negative) Urine Urobilinogen (Normal) mg/dL Ur Leukocyte Esterase (Negative) Urine Microscopic RBC (0-3) per hpf Urine Microscopic WBC (0-3) per hpf Ur Squamous Epith Cells (None-Few) per lpf Urine Bacteria (None-Few) per hpf Hyaline Casts (None-Few) per lpf Ur Culture Indicated? (NO) - EKG Data EKG #1 EKG attestation: Yes I reviewed and interpreted this EKG. EKG results narrative: EKG #1. 18:25 Heart rate 97 bpm, NM interval 145 ms, QRS duration 107 ms, QT 352 ms, axis. Sinus rhythm ventricular rate of 97 beats for minute. Occasional premature atrial complexes. No ischemic ST changes. EKG #2 19:24 Heart rate 137 bpm, QRS durration 100 m seconds, QT 309 ms, no P waves Atrial fibrillation with rapid ventricular response. No ischemic ST changes. Attestation Statement - Attestation Attestation: I, Kristian Lopez DO, examined this patient [id number] and my medical decision-making was reviewed with Dr. Brijesh Wienstein, Resident Physician. I agree with the documented findings, disposition and treatment plan as described except to the extent set forth below. Please see my progress notes for details.
[2018-02-02 17:34] LABS: Bilirubin,Urine Negative (Negative); Blood,Urine Negative (Negative); Clarity,Urine Clear (Clear); Color,Urine Yellow (Yellow); Glucose,Urine (UA) Normal (Normal); Ketones,Urine Negative (Negative); Leukocyte Esterase,Urine Negative (Negative); Nitrite,Urine Negative (Negative); PH,Urine 7.5 pH Units (5.0-8.0); Protein,Urine Trace mg/dL (Neg-Trace); Specific Gravity,Urine 1.013 (1.010-1.025); Urobilinogen,Urine Normal (Normal)
[2018-02-02 17:36] LABS: Bacteria,Urine None Seen per hpf (None-Few); Hyaline Casts,Urine None Seen per lpf (None-Few); RBC,Urine 0-3 per hpf (0-3); Squamous Epithelial Cell,Urine None Seen per lpf (None-Few); WBC,Urine 0-3 per hpf (0-3)
[2018-02-02 18:04] LABS: Basophils % 0.3 %; Hemoglobin 10.1 g/dL (12.9-16.9); Mean Corpuscular Volume 94.2 fL (83.0-100.0)
[2018-02-02 18:05] LABS: Eosinophils % 0.3 %; Hematocrit 30.6 % (37.5-50.1); Lymphocytes % 32.7 %; Mean Corpuscular Hemoglobin 31.1 pg (28.0-33.3); Mean Platelet Volume 10.6 fL (9.4-12.4); Monocytes # 0.4 K/mcL (0.0-1.3); Monocytes % 13.5 %; Neutrophils # 1.6 K/mcL (1.6-8.9); Red Blood Count 3.25 M/mcL (4.19-5.50); Segmented Neutrophils % 52.2 %
[2018-02-02 18:06] LABS: Platelet Count 56 K/mcL (140-400)
--- NOTE | 2018-02-02 18:08 | Emergency Department Note ---
Disposition Clinical Impression: Atrial fibrillation with RVR, Pneumonitis Fever Qualifiers: Fever type: unspecified Qualified Code(s): R50.9 - Fever, unspecified Disposition: Admitted As Inpatient Condition: Fair Time of Disposition: 20:40 General Adult HPI - General Chief complaint: ED Fever Stated complaint: fever Time Seen by Provider: 02/02/18 17:06 - History of Present Illness Pain Scale: 0 - Related Data Home Medications Medication Instructions Recorded Confirmed ALPRAZolam [Xanax 1 MG Tablet] 1 mg PO QID PRN 09/12/15 01/30/18 Albuterol Sulfate [Albuterol 2 puff IH Q4H PRN 09/12/15 01/30/18 Inhaler] Atorvastatin Calcium [Lipitor] 80 mg PO DAILY 09/12/15 01/30/18 Metformin HCl [Glucophage] 1,000 mg PO BID 09/12/15 01/30/18 Potassium Chloride [K-Tab ER] 10 meq PO BID 09/12/15 01/30/18 Olmesartan Medoxomil [Benicar] 5 mg PO DAILY 01/29/18 01/30/18 Oxycodone HCl/Acetaminophen 1 tab PO 5XD 01/30/18 01/30/18 [Endocet 10-325 mg Tablet] Tamsulosin [Flomax] 0.4 mg PO BID 01/30/18 01/30/18 Tiotropium [Spiriva] 18 mcg PO DAILY 01/30/18 01/30/18 Advair 500-50 Diskus 02/02/18 Chantix 02/02/18 02/02/18 Compazine 02/02/18 Ventolin Hfa 02/02/18 guaiFENesin 02/02/18 02/02/18 Allergies Allergy/AdvReac Type Severity Reaction Status Date / Time No Known Allergies Allergy Verified 09/12/15 11:18 Past Medical History - Past Medical History Medical history: Reports: cancer, diabetes, hypertension Surgical history: Reports: colostomy Psychiatric history: Reports: anxiety - Social History Smoking Status: Current every day smoker Smokeless Tobacco Status: No Alcohol use: Reports: none Drug use: Reports: none Physical Exam - General General appearance: alert, in no apparent distress Course Vital Signs Temperature 98.3 F 02/02/18 17:04 Pulse Rate 100 02/02/18 17:04 Respiratory Rate 23 02/02/18 17:04 Blood Pressure 139/79 02/02/18 17:04 O2 Sat by Pulse Oximetry 99 02/02/18 17:04 Temperature 98.3 F 02/02/18 17:04 Pulse Rate 100 02/02/18 17:04 Respiratory Rate 18 02/02/18 17:23 Blood Pressure 139/79 02/02/18 17:04 O2 Sat by Pulse Oximetry 98 02/02/18 17:23 Oxygen Delivery Oxygen Delivery Room Air Medical Decision Making - Lab Data Result diagrams: 02/02/18 19:50 02/02/18 17:51 Lab Results 02/02/18 02/02/18 02/02/18 Range/Units 17:22 17:51 17:51 WBC 3.0 L D (4.3-11.1) K/mcL RBC 3.25 L (4.19-5.50) M/mcL Hgb 10.1 L (12.9-16.9) g/dL Hct 30.6 L (37.5-50.1) % MCV 94.2 (83.0-100.0) fL MCH 31.1 (28.0-33.3) pg MCHC 33.0 (31.6-35.5) g/dL RDW 14.0 (11.5-14.5) % Plt Count 56 L (140-400) K/mcL MPV 10.6 (9.4-12.4) fL Immature Gran % 1.0 (0-4) % Seg Neutrophils % 52.2 % Lymphocytes % 32.7 % Monocytes % 13.5 % Eosinophils % 0.3 % Basophils % 0.3 % Neutrophils # 1.6 (1.6-8.9) K/mcL Lymphocytes # 1.0 (0.6-4.6) K/mcL Monocytes # 0.4 (0.0-1.3) K/mcL Eosinophils # 0.0 (0.0-0.6) K/mcL Basophils # 0.0 (0.0-0.2) K/mcL Platelet Estimate Marked Decrease L (Normal) Immature Plt Fraction 3.0 (1.1-6.1) % PT (9.4-12.1) Seconds INR Heparin Anti-Xa, Unfract (0.30-0.70) IU/mL Sodium 137 (136-145) mEq/L Potassium 3.6 (3.5-5.1) mEq/L Chloride 107 (98-107) mEq/L Carbon Dioxide 23 (23-29) mEq/L BUN 13 (8-23) mg/dL Creatinine 0.86 (0.70-1.30) mg/dL Est GFR ( Amer) > 60 (> 60) Est GFR (Non-Af Amer) > 60 (> 60) BUN/Creatinine Ratio 15 (6-26) Glucose 114 H (70-105) mg/dL Calculated Osmolality 285 (280-300) Lactic Acid (0.5-2.2) mmol/L Calcium 8.8 (8.6-10.3) mg/dL Phosphorus 3.0 (2.7-4.5) mg/dL Magnesium 2.0 (1.6-2.6) mg/dL Total Bilirubin 0.6 (0.3-1.0) mg/dL Direct Bilirubin 0.2 (0.0-0.2) mg/dL Indirect Bilirubin 0.4 (0.0-1.2) mg/dL AST 26 (13-39) Units/L ALT 84 H (7-52) Units/L Alkaline Phosphatase 80 (34-104) Units/L Troponin I 0.03 (< 0.04) ng/mL Serum Total Protein 6.3 L (6.4-8.9) g/dL Albumin 3.5 (3.5-5.7) g/dL Globulin 2.8 (2.4-3.5) g/dL Albumin/Globulin Ratio 1.3 (1.1-2.2) Urine Color Yellow (Yellow) Urine Clarity Clear (Clear) Urine pH 7.5 (5.0-8.0) pH Units Ur Specific [place] 1.013 (1.010-1.025) Urine Protein Trace (Neg-Trace) mg/dL Urine Glucose (UA) Normal (Normal) mg/dL Urine Ketones Negative (Negative) mg/dL Urine Blood Negative (Negative) Urine Nitrite Negative (Negative) Urine Bilirubin Negative (Negative) Urine Urobilinogen Normal (Normal) mg/dL Ur Leukocyte Esterase Negative (Negative) Urine Microscopic RBC 0-3 (0-3) per hpf Urine Microscopic WBC 0-3 (0-3) per hpf Ur Squamous Epith Cells None Seen (None-Few) per lpf Urine Bacteria None Seen (None-Few) per hpf Hyaline Casts None Seen (None-Few) per lpf Ur Culture Indicated? NO (NO) 02/02/18 02/02/18 02/02/18 Range/Units 17:51 19:50 19:50 WBC 2.3 L (4.3-11.1) K/mcL RBC 3.31 L (4.19-5.50) M/mcL Hgb 10.2 L (12.9-16.9) g/dL Hct 31.4 L (37.5-50.1) % MCV 94.9 (83.0-100.0) fL MCH 30.8 (28.0-33.3) pg MCHC 32.5 (31.6-35.5) g/dL RDW 13.9 (11.5-14.5) % Plt Count 49 L (140-400) K/mcL MPV 10.4 (9.4-12.4) fL Immature Gran % (0-4) % Seg Neutrophils % % Lymphocytes % % Monocytes % % Eosinophils % % Basophils % % Neutrophils # (1.6-8.9) K/mcL Lymphocytes # (0.6-4.6) K/mcL Monocytes # (0.0-1.3) K/mcL Eosinophils # (0.0-0.6) K/mcL Basophils # (0.0-0.2) K/mcL Platelet Estimate (Normal) Immature Plt Fraction 3.0 (1.1-6.1) % PT 11.7 (9.4-12.1) Seconds INR 1.0 Heparin Anti-Xa, Unfract 0.02 L (0.30-0.70) IU/mL Sodium (136-145) mEq/L Potassium (3.5-5.1) mEq/L Chloride (98-107) mEq/L Carbon Dioxide (23-29) mEq/L BUN (8-23) mg/dL Creatinine (0.70-1.30) mg/dL Est GFR ( Amer) (> 60) Est GFR (Non-Af Amer) (> 60) BUN/Creatinine Ratio (6-26) Glucose (70-105) mg/dL Calculated Osmolality (280-300) Lactic Acid 0.9 (0.5-2.2) mmol/L Calcium (8.6-10.3) mg/dL Phosphorus (2.7-4.5) mg/dL Magnesium (1.6-2.6) mg/dL Total Bilirubin (0.3-1.0) mg/dL Direct Bilirubin (0.0-0.2) mg/dL Indirect Bilirubin (0.0-1.2) mg/dL AST (13-39) Units/L ALT (7-52) Units/L Alkaline Phosphatase (34-104) Units/L Troponin I (< 0.04) ng/mL Serum Total Protein (6.4-8.9) g/dL Albumin (3.5-5.7) g/dL Globulin (2.4-3.5) g/dL Albumin/Globulin Ratio (1.1-2.2) Urine Color (Yellow) Urine Clarity (Clear) Urine pH (5.0-8.0) pH Units Ur Specific [place] (1.010-1.025) Urine Protein (Neg-Trace) mg/dL Urine Glucose (UA) (Normal) mg/dL Urine Ketones (Negative) mg/dL Urine Blood (Negative) Urine Nitrite (Negative) Urine Bilirubin (Negative) Urine Urobilinogen (Normal) mg/dL Ur Leukocyte Esterase (Negative) Urine Microscopic RBC (0-3) per hpf Urine Microscopic WBC (0-3) per hpf Ur Squamous Epith Cells (None-Few) per lpf Urine Bacteria (None-Few) per hpf Hyaline Casts (None-Few) per lpf Ur Culture Indicated? (NO) Attestation Statement - Attestation Attestation: I, Kristian Lopez DO, examined this patient [id number] and my medical decision-making was reviewed with Dr. Brijesh Weinstein, Resident Physician. I agree with the documented findings, disposition and treatment plan as described except to the extent set forth below. Please see my progress notes for details. 82-year-old male presents to the emergency room for evaluation of fever. Patient currently is being treated for lung cancer. He has had a fever for 2-3 days. Was up at [facility] where he had a very strong dose of chemotherapy earlier this week. Since any separate fevers chills and a productive cough. Family is concerned and they brought him into the emergency room by EMS for evaluation. Patient was immediately placed on neutropenic fever precautions here in the emergency room. Blood cultures CBC chemistry troponin electrolytes as well as liver function testing and lipase will be added on urinalysis. Chest x-ray will be ordered at this time as well. Antibiotics will be held until we have actual sores. Patient is concerning for neutropenic fever secondary to cancer. On physical exam is upright in the bed speaking in full sentences and does not appear to be in any specific distress. Is describing generalized malaise weakness and discomfort. Currently denying chest pain shortness of breath headache vision changes nausea vomiting or diarrhea. No chills just a fever. Denies any productive cough or sputum here today but he has had a cough for the last 24-48 hours. Vital signs been reviewed and are otherwise unremarkable. Shunt will have detailed workup completed here in the disposition to be determined. Currently appears to be stable. See detailed documentation of the physical exam, medical intervention, medical decision-making and disposition the resident physician's note. No critical care provider the patient's treatment course at this time. 2000 Patient found to have suspicious chest x-ray for possible pneumonia. Patient was started on age Precautions. Vital signs remain stable. Patient did fluctuate up into a tachycardia atrial fibrillation at one point in the treatment course. Unknown etiology at this point. Patient is receiving chemotherapy. Could be secondary to irritation to the heart. Patient had Cardizem drip ordered as well as Cardizem bolus and heparin drip ordered after discussion with the hospitalist was reviewed. When I went back and reevaluated the patient appears to be in sinus rhythm with tachycardic heart rate at 120. Is otherwise in no distress. Cardizem drip and bolus were canceled of this time in a heparin drip will be held. Will contact the hospitalist again for recommendations. CT angiography that was also requested by the hospitalist shows what appears to be postchemotherapy pneumonitis of the lung. I will inform the hospitalist of the findings and provide him at the new information to make sure there is no other concerns or issues. Bedside point of care ultrasound was also utilized showing no acute signs of pericardial effusion. This is completed by the resident physician under my direct supervision. Discussion was had with the hospitalist and they are comfortable the patient being held for anticoagulation and the Cardizem at this point. We will continue to monitor with telemetry. If any other events occur or become sustained atrial fibrillation and will restart the medications. Patient is otherwise currently stable. Maintenance fluids were added on at this point. Disposition will be admission for continuation of care.
[2018-02-02] MEDS ORDERED: 0.9 % Sodium Chloride 1,000 ML IVC STA (18:18)
[2018-02-02 18:25] LABS: Troponin I 0.03 ng/mL (< 0.04)
[2018-02-02 18:26] LABS: Alanine Aminotransferase 84 Units/L (7-52); Albumin 3.5 g/dL (3.5-5.7); Albumin/Globulin Ratio 1.3 (1.1-2.2); Alkaline Phosphatase 80 Units/L (34-104); Aspartate Amino Transferase 26 Units/L (13-39); BUN/Creatinine Ratio 15 (6-26); Bilirubin,Direct 0.2 mg/dL (0.0-0.2); Bilirubin,Indirect 0.4 mg/dL (0.0-1.2); Bilirubin,Total 0.6 mg/dL (0.3-1.0); Blood Urea Nitrogen 13 mg/dL (8-23); Calcium 8.8 mg/dL (8.6-10.3); Carbon Dioxide 23 mEq/L (23-29); Chloride 107 mEq/L (98-107); Globulin 2.8 g/dL (2.4-3.5); Glucose 114 mg/dL (70-105); Osmolality,Calculated 285 (280-300); Potassium 3.6 mEq/L (3.5-5.1); Sodium 137 mEq/L (136-145); Total Protein 6.3 g/dL (6.4-8.9); eGFR For Non-African Americans > 60 (> 60)
[2018-02-02 18:29] LABS: Platelet Estimate Marked Decrease (Normal)
[2018-02-02] MEDS ORDERED: Piperacillin/Tazobactam 3.375 GM in 0.9 % Sodium Chloride Mini Bag 100 ML IVPB ONE (19:24)
[2018-02-02] MEDS ORDERED: Levofloxacin 750 MG/150 ML 750 MG/150 ML BAG IVPB ONE (19:24)
[2018-02-02] MEDS ORDERED: Isovue-370 500 ML INFUS..BTL IV ONE (19:43)
[2018-02-02] MEDS ORDERED: *HR* Heparin 5,000 UNIT/ML VIAL IVP ONE (19:43)
[2018-02-02] MEDS ORDERED: *HR* Heparin 5,000 UNIT/ML VIAL IVP PRN ×2 (19:43)
[2018-02-02] MEDS ORDERED: Heparin 25,000 UNIT/500 ML D5W 25,000 UNIT/500 ML BAG IVC SCH (19:45)
[2018-02-02 20:04] LABS: Hematocrit 31.4 % (37.5-50.1); Hemoglobin 10.2 g/dL (12.9-16.9); Mean Corpuscular HGB Conc 32.5 g/dL (31.6-35.5); Mean Corpuscular Hemoglobin 30.8 pg (28.0-33.3); Mean Corpuscular Volume 94.9 fL (83.0-100.0); Red Blood Count 3.31 M/mcL (4.19-5.50)
[2018-02-02 20:06] LABS: Mean Platelet Volume 10.4 fL (9.4-12.4); Red Cell Distribution Width 13.9 % (11.5-14.5)
[2018-02-02 20:08] LABS: Heparin anti-factor XA UFH 0.02 IU/mL (0.30-0.70); Prothrombin Time 11.7 Seconds (9.4-12.1)
[2018-02-02] MEDS ORDERED: Naloxone 0.4 MG/ML INJ IVP PRN ×2 (20:23→23:53)
[2018-02-02] MEDS ORDERED: Dextrose Gel 15 GM/37.5 ML TUBE PO PRN ×2 (20:29)
[2018-02-02] MEDS ORDERED: *HR* Dextrose 50 % in Water (Syg) 50 ML SYRINGE IVP PRN (20:29)
[2018-02-02] MEDS ORDERED: D5% in Water 1,000 ML IVC PRN (20:29)
--- NOTE | 2018-02-02 21:14 | Internal Med History&Physical ---
<Sharee Knight - Last Filed: 02/03/18 04:27> Date of Encounter: 02/03/18 Time of Encounter: 20:45 Internal Medicine - H&P: HPI Chief complaint: fever Admitted From: Home Plans for Post Hospital Care: Home History of present illness: Mr. Arvizu is a 82 year old male presenting to the ED for multiple complaints including fever, cough, decreased urine output. This patient has a h/o small cell lung cancer (receiving treatment @ [facility]), DM, HTN, diastolic CHF, and colon cancer. Patient states he hasn't been feeling generally unwell over the last 2 days with a fever of 101 F last night; fever improved after taking tylenol. He admits to cough with clear sputum production that began 3-4 weeks earlier. Reports some shortness of breath as well. Patient reports difficulty urinating over the last 2 weeks that he describes as intermittent dribbling, but he's still able to urinate normally at times. He says he's never this urinary problem before and admits to urinary frequency. Patient denies associated chills , chest pain or pressure, heart palpitations, wheezing, vomiting, abdominal pain , dysuria, pyuria, lightheadedness, and dizziness. PO intake decreased. ED course: On arrival was afebrile, tachycardic HR 100, tachypneic RR 23, BP 139 /79, SPO2 99%. Labwork noted for pancytopenia with WBC 3, Hgb 10.1, and platelets 56k. CXR showed masslike density of right lower lung without significant change. Was given vancomycin, zosyn, and Levaquin for concerns of HCAP. Initial EKG showed sinus rhythm, but time of admission he went into A. fib with RVR and heart rate reported to be as high as 150. He then spontaneously converted back to sinus. CTA chest ordered for PE r/o. He was admitted to hospitalist team for further evaluation and management of possible PNA. Past Med Surg Social Fam HX - Past Medical History Medical history: cancer, diabetes, hypertension Additional medical history: small cell lung cancer Psychiatric history: anxiety - Past Surgical History Surgical History: colostomy Additional surgical history: colon sx, back surgery - Social History Smoking Status: Current every day smoker Smokeless Tobacco Status: No Alcohol use: none Drug use: none - Family History Mother Living Status: Hx Family Cardiac Disorders: Yes Internal Medicine - H&P: Meds ALPRAZolam [Xanax 1 MG Tablet] 1 mg PO QID PRN 09/12/15 [History] Albuterol Sulfate [Albuterol Inhaler] 2 puff IH Q6HR PRN 09/12/15 [History] Atorvastatin Calcium [Lipitor] 80 mg PO DAILY 09/12/15 [History] Metformin HCl [Glucophage] 1,000 mg PO BID 09/12/15 [History] Potassium Chloride [K-Tab ER] 10 meq PO BID 09/12/15 [History] Olmesartan Medoxomil [Benicar] 5 mg PO DAILY 01/29/18 [History] Oxycodone HCl/Acetaminophen [Endocet 10-325 mg Tablet] 1 tab PO 5XD 01/30/18 [ History] Tamsulosin [Flomax] 0.4 mg PO BID 01/30/18 [History] Tiotropium [Spiriva] 18 mcg PO DAILY 01/30/18 [History] Prochlorperazine Maleate [Compazine] 10 mg PO Q6HR 02/02/18 [History] Varenicline Tartrate [Chantix Continuing Months Pack] 1 each PO AD 02/02/18 [ History] 3 Allergy/AdvReac Type Severity Reaction Status Date / Time No Known Allergies Allergy Verified 09/12/15 11:18 All Systems PM: A 10-system review of systems was performed and is negative for pertinent findings except as documented above in the HPI. - Constitutional Constitutional: as per HPI, no chills - Cardiovascular Cardiovascular ROS IM: as per HPI, no diaphoresis, no edema - Respiratory Respiratory: as per HPI, no wheezing, no chest congestion - Gastrointestinal Gastrointestinal: as per HPI, no abdominal pain, no constipation, no diarrhea - Genitourinary Genitourinary ROS male: as per HPI, urinary frequency, no flank pain - Neurological Neurological ROS: no dizziness, no headache(s) - Psychiatric Psychiatric: change in appetite, no confusion - Constitutional Vitals: Temp Pulse Resp BP Pulse Ox 98.3 F 100 18 142/76 98 02/02/18 17:04 02/02/18 17:04 02/02/18 21:02 02/02/18 21:02 02/02/18 17:23 Exam: General: vital signs noted, no acute distress, non-toxic appearance, AAO x3 Head: normocephalic, atraumatic Eyes: EOMI, PERRL, sclera anicteric ENT: moist mucous membranes Neck: supple, trachea midline Cardio: regular rhythm, tachycardic; no murmurs, gallops, rubs; + S1/S2; no edema Chest: symmetric chest rise Pulm: decreased breath sound bilaterally, scattered wheezes R > L, no rhonchi or rales, no respiratory distress, shallow respirations Abd: soft, nontender, nondistended, normal bowel sounds Neuro: CN II-XII grossly intact; no focal deficits, moves all extremities spontaneously Ext: no lower extremity edema; 2+/4 radial pulses equal bilaterally, no gross deformities, nontender Psych: normal mood and affect, cooperative, answers questions appropriately, doesnt appear anxious or agitated Skin: warm, dry, intact Internal Med - H&P Results - Labs CBC & Chem 7: 02/02/18 19:50 02/02/18 17:51 Labs: Short CBC 02/02/18 02/02/18 Range/Units 17:51 19:50 WBC 3.0 L D 2.3 L (4.3-11.1) K/mcL Hgb 10.1 L 10.2 L (12.9-16.9) g/dL Hct 30.6 L 31.4 L (37.5-50.1) % Plt Count 56 L 49 L (140-400) K/mcL Neutrophils # 1.6 (1.6-8.9) K/mcL BMP 02/02/18 17:51 Sodium 137 Potassium 3.6 Chloride 107 Carbon Dioxide 23 BUN 13 Creatinine 0.86 Glucose 114 H Calcium 8.8 Cardiac Enzymes 02/02/18 Range/Units 17:51 Troponin I 0.03 (< 0.04) ng/mL Liver Function 02/02/18 Range/Units 17:51 Total Bilirubin 0.6 (0.3-1.0) mg/dL Direct Bilirubin 0.2 (0.0-0.2) mg/dL AST 26 (13-39) Units/L ALT 84 H (7-52) Units/L Alkaline Phosphatase 80 (34-104) Units/L Albumin 3.5 (3.5-5.7) g/dL Urine 02/02/18 Range/Units 17:22 Urine Color Yellow (Yellow) Urine Clarity Clear (Clear) Urine pH 7.5 (5.0-8.0) pH Units Ur Specific [place] 1.013 (1.010-1.025) Urine Protein Trace (Neg-Trace) mg/dL Urine Glucose (UA) Normal (Normal) mg/dL - Impressions ITS Impressions Chest X-Ray 02/02/18 17:07 IMPRESSION: No significant change in the masslike density within the right lower lung, accounting for differences in technique. Findings could represent pulmonary malignancy with or without superimposed infection. No evidence of significant pleural effusion, or pneumothorax. D/ / 02/02/2018 18:29:54 Tonny Jay MD / edilia Interpreting Provider: Tonny Jay MD Chest CTA 02/02/18 19:43 IMPRESSION: 1. No pulmonary embolism. 2. Stable consolidative changes and mass lesions right lower lung with findings typical of post radiation pneumonitis. Correlate with clinical history. 3. Emphysema. 4. Calcific atherosclerotic disease aorta. D/ / Carlos Rivera / Carlos Rivera Interpreting Provider: Carlos Rivera - Assessment and plan (1) Fever Current Visit: Yes Status: Acute Assessment and plan: Currently afebrile Reportedly measured 101 F at home, improved after tylenol Etiology uncertain, infection/PNA vs tumor fever Uncertain if sepsis criteria are met as using WBC and platelet counts is skewed by ongoing chemotherapy Not a neutropenic fever as his ANC > 500 During previous hospitalization (01/29/18) there was concern for HCAP and he received vancomycin, zosyn, and levaquin Sputum and blood cultures containing E. coli (staph epi in blood culture most likely contaminant, pt doesn't have port or indwelling prosthetics) MRSA swab negative--vancomycin stopped Legionella and strep pneumoniae antigens negative Continue to monitor for fever and signs of sepsis Blood results pending; sputum culture pending collection Ceftriaxone 2 grams IV Q24H Qualifiers: Fever type: unspecified Qualified Code(s): R50.9 - Fever, unspecified (2) Atrial fibrillation with RVR Current Visit: Yes Status: Acute Assessment and plan: Resolved Converted back to sinus rhythm spontaneously Cardizem gtt initially ordered for Afib RVR, discontinued after spontaneous return to sinus Receive some of heparin gtt before it was discontinued No previous hx of Afib; uuncertain etiology but may be due to possible infectious process Consider cardizem gtt if Afib with RVR reoccurs Echocardiogram in morning Continuous cardiac monitoring (3) Difficulty urinating Current Visit: Yes Status: Acute Assessment and plan: Takes tamsulosin 0.4 mg PO BID at home, pt feels like this is no longer effective UA negative for signs of UTI Bladder scan to r/o obstruction--consider urology consult if results abnormal Consider increasing tamsulosin dose Monitor I/O's (4) Small cell lung cancer Current Visit: Yes Status: Acute Assessment and plan: Receives care at [facility], Dr. Maya Chemotherapy with carboplatin/etoposide @ [facility]--received treated 2 weeks ago, next treatment scheduled for February 10 CXR shows mass-like density of R lower lung, unchanged from previous imaging CTA chest shows evidence of pneumonitis, likely d/t chemotherapy Neutropenic precautions (5) COPD (chronic obstructive pulmonary disease) Current Visit: No Status: Chronic Assessment and plan: SPO2 95% on room air Continue home inhalers Wears 2L nasal cannula at night--will continue DuoNebs as needed Qualifiers: COPD type: COPD with acute lower respiratory infection Qualified Code(s): J44.0 - Chronic obstructive pulmonary disease with acute lower respiratory infection (6) Diabetes mellitus Current Visit: Yes Status: Chronic Assessment and plan: Low dose correction sliding scale insulin Diabetic diet Glucose checks AC HS Qualifiers: Diabetes mellitus type: type 2 Diabetes mellitus residential insulin use: without nurse administrator use Diabetes mellitus complication status: without complication Qualified Code(s): E11.9 - Type 2 diabetes mellitus without complications (7) DVT prophylaxis Current Visit: Yes Status: Acute Assessment and plan: SCDs for now as pt had been started on heparin gtt (now discontinued) - Time Spent With Patient Total time spent is greater than 50% in coordination of care (as documented) at patient's floor/unit and/or counseling patient: <Momo Nathan - Last Filed: 02/03/18 07:09> Date of Encounter: 02/02/18 Internal Medicine - H&P: HPI History of present illness: Mr. Arvizu is a 82 year old male All Systems PM: A 10-system review of systems was performed and is negative for pertinent findings except as documented above in the HPI. - Constitutional Vitals: Temp Pulse Resp BP Pulse Ox 99.3 F 116 17 163/80 95 02/02/18 21:53 02/02/18 21:53 02/02/18 21:53 02/02/18 21:53 02/02/18 21:53 Internal Med - H&P Results - Labs CBC & Chem 7: 02/03/18 05:49 02/03/18 05:49 - Assessment and plan (1) DVT prophylaxis Current Visit: Yes Status: Acute (2) Small cell lung cancer Current Visit: Yes Status: Acute (3) Fever Current Visit: Yes Status: Acute Qualifiers: Fever type: unspecified Qualified Code(s): R50.9 - Fever, unspecified (4) Atrial fibrillation with RVR Current Visit: Yes Status: Acute - Time Spent With Patient Total time spent is greater than 50% in coordination of care (as documented) at patient's floor/unit and/or counseling patient: - Attending Attestation Patient seen and examined on 02/02/18. Chart reviewed. Case discussed with resident. Agree with assessment and plan. Patient is a 82-year-old male with a past medical history significant for small cell lung cancer recently initiated on chemotherapy at the beginning of this month, was admitted several days ago for sepsis in the setting of neutropenia and possible pneumonia and COPD exacerbation. Was receiving treatment with vancomycin and Zosyn. Antibiotic regimen was the descalated to Zosyn due to negative MRSA swab. Blood and sputum cultures came back for Escherichia coli. Patient was also seen by oncology and received Neupogen. Patient left AMA and now returns because of fever. Reports fever 101 at home. Denies any worsening cough or shortness of breath. Also endorses increased difficulty with urination frequency. Patient is on tamsulosin but does not feel it to be helping. Upon arrival patient was afebrile HEENT, hemodynamically stable and slightly tachycardic with a heart rate in the 116. While in the ED patient developed A. fib with RVR. CTA was performed which showed no evidence of PE. However there was evidence of chemical pneumonitis the patient has a history of radiation therapy in the past. Labs notable for pancytopenia with a white count of 2.3 with a absolute neutrophil count of 1.6K. Patient started empirically on Vanco and Zosyn. Received breathing treatments in the ED. Currently stable satting at 95% on room air. We will admit for possible pneumonia in the setting of positive blood and sputum cultures for Escherichia coli sensitive to ceftriaxone. Patient likely did not complete long enough course on previous admission as he left AMA. Nebulizer treatments for COPD exacerbation. We will place patient on telemetry for A. fib with RVR. Patient reverted to sinus rhythm. Monitor urine output with bladder scan. If evidence of retention consider renal ultrasound/urology consult.
[2018-02-02] MEDS: Insulin LISPRO 300 UNITS/3 ML VIAL SQ SCH (22:58)
[2018-02-02] MEDS: 0.9 % Sodium Chloride 1,000 ML IVC SCH (23:01)
[2018-02-03] MEDS: ALPRAZolam 1 MG TABLET PO PRN (00:10)
[2018-02-03] MEDS: cefTRIAXone 2,000 MG in Water for inj. (sterile) 20 ML 20 ML IVPB SCH (03:16)
[2018-02-03 06:07] LABS: Hematocrit 27.5 % (37.5-50.1); Hemoglobin 9.1 g/dL (12.9-16.9); Immature Platelets 2.7 % (1.1-6.1); Mean Corpuscular HGB Conc 33.1 g/dL (31.6-35.5); Mean Corpuscular Hemoglobin 31.1 pg (28.0-33.3); Mean Corpuscular Volume 93.9 fL (83.0-100.0); Mean Platelet Volume 10.6 fL (9.4-12.4); Red Blood Count 2.93 M/mcL (4.19-5.50); Red Cell Distribution Width 14.1 % (11.5-14.5)
[2018-02-03 06:11] LABS: INR 1.1; Prothrombin Time 12.7 Seconds (9.4-12.1)
[2018-02-03 06:13] LABS: Activated Partial Thrombo Time 30.5 Seconds (26.0-36.0)
[2018-02-03 06:15] LABS: Platelet Count 55 K/mcL (140-400)
[2018-02-03] MEDS: 0.9 % Sodium Chloride 1,000 ML IVC SCH ×2 (06:23→17:42)
[2018-02-03 06:27] LABS: BUN/Creatinine Ratio 16 (6-26); Blood Urea Nitrogen 12 mg/dL (8-23); Carbon Dioxide 22 mEq/L (23-29); Chloride 109 mEq/L (98-107); Glucose 110 mg/dL (70-105); Osmolality,Calculated 284 (280-300); Potassium 3.5 mEq/L (3.5-5.1); Sodium 137 mEq/L (136-145); eGFR For Non-African Americans > 60 (> 60)
[2018-02-03 06:41] LABS: Lymphocytes # 0.4 K/mcL (0.6-4.6); Monocytes # 0.2 K/mcL (0.0-1.3); Neutrophils # 2.3 K/mcL (1.6-8.9)
[2018-02-03 06:43] LABS: Platelet Estimate Marked Decrease (Normal)
[2018-02-03] MEDS ORDERED: Perflutren Lipid Microsphere 1.3 ML in 0.9 % Sodium Chloride 8.7 ML IVP ONE (08:33)
[2018-02-03] MEDS: Insulin LISPRO 300 UNITS/3 ML VIAL SQ SCH ×4 (08:37→20:43)
--- NOTE | 2018-02-03 08:55 | Electrocardiograph Report ---
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
[2018-02-03] MEDS ORDERED: Tiotropium 18 MCG inhalation IH SCH (09:00)
[2018-02-03] MEDS ORDERED: OLMESARTAN MEDOXOMIL 5 MG PO SCH (09:00)
[2018-02-03] MEDS: Tiotropium 18 MCG inhalation IH SCH (10:24)
--- NOTE | 2018-02-03 13:07 | Electrocardiograph Report ---
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
--- NOTE | 2018-02-03 13:07 | Electrocardiograph Report ---
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
--- NOTE | 2018-02-03 13:07 | Electrocardiograph Report ---
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
--- NOTE | 2018-02-03 15:56 | Internal Med Progress Note ---
Hospitalist Progress Note - Encounter Date of Encounter: 02/03/18 Time of Encounter: 15:56 - Subjective Interval History: SUBJECTIVE: The patient feels better. He has no problems with voiding urine today morning. Denies having dysuria, hesitancy or frequency. He has noticed any blood in urine recently. Denies abdominal pain. Denies nausea and vomiting; was taking scheduled Compazine 4 times a day at home. He does have mild cough but not wheezing. Denies difficulty breathing; on room air oxygen at this time. OBJECTIVE: Skin: Free of rash and discoloration. ENMT: Oral/pharyngeal mucosa is normal in appearance. Eyes: Sclera is white. There is no discharge from eyes. Respiratory: Normal breath sounds; no crackles or wheezes. CV: Heart is regular; no gallop or murmur. GI: Abdomen is soft and not tender. There is no palpable mass or visceromegaly. Neuro: There is no focal deficits. ADDITIONAL DATA: He is a CBC from tomorrow shows hemoglobin of 9.1; 10.2 yesterday. Associated with WBC of 2.9 thousand; 2.3 thousand yesterday. He has 78% of segments and 2 % of bands in WBC differential. Platelet count is 55,000; 49,000 yesterday. His potassium is 3.5; 3.6 yesterday. Creatinine is 0.75. His lactic acid was checked her yesterday it was 0.9. Associated with normal liver function tests. His telemetry shows normal sinus rhythm; was A. fib with RVR at admission. ASSESSMENT AND PLAN: Fever. He does have a right lower lobe lung mass, likely due to his small cell lung cancer. His UA shows normal findings. He is not neutropenic. His neutrophil count is over 500. We will keep him on IV Rocephin. We will consult oncology. The patient has true pancytopenia secondary to treatment of his small cell lung cancer. Difficulty voiding observed at admission. Could be secondary to a lot of oxycodone and the a lot of Compazine he was taking at home. Will obtain bladder scan. There is no evidence for urinary tract infection. A. fib with RVR. Subsided. He was on IV Cardizem drip for short period of time. He is a very poor candidate for chronic anticoagulation. COPD. Clinically under control. He is on room her oxygen. Type 2 diabetes mellitus. We will continue diabetic diet and when necessary Humalog. He was taking metformin at home. Hypertension. Under control. We will continue losartan. Mild hypokalemia. I will increase his dose of potassium chloride. - Exam Vitals: Temp Pulse Resp BP Pulse Ox 98.9 F 69 18 132/77 95 02/03/18 11:29 02/03/18 11:29 02/03/18 11:29 02/03/18 11:29 02/03/18 11:29 Exam: xx - Assessment and Plan (1) Fever Current Visit: Yes Status: Acute (2) Atrial fibrillation with RVR Current Visit: Yes Status: Acute (3) PAF (paroxysmal atrial fibrillation) Current Visit: Yes Status: Acute (4) Small cell lung cancer Current Visit: Yes Status: Acute (5) COPD (chronic obstructive pulmonary disease) Current Visit: No Status: Chronic (6) Pancytopenia Current Visit: Yes Status: Chronic (7) T2DM (type 2 diabetes mellitus) Current Visit: Yes Status: Acute (8) Hypertension Current Visit: No Status: Chronic (9) Difficulty urinating Current Visit: Yes Status: Acute - Time Spent with Patient Total time spent is greater than 50% in coordination of care (as documented) at patient's floor/unit and/or counseling patient: 25 - 35 minutes Plan of Care Discussed with: patient (and government operations consultant) Internal Medicine: Result - Labs CBC & Chem 7: 02/03/18 05:49 02/03/18 05:49 - ABG Interpretation ABG results: PT/INR, D-dimer PT 12.7 Seconds (9.4-12.1) H 02/03/18 05:49 Consult Discharge Plan - Plan Referrals: Macario Yarbrough DO [Primary Care Provider] - (1) Fever Qualifiers: Fever type: unspecified Qualified Code(s): R50.9 - Fever, unspecified (5) COPD (chronic obstructive pulmonary disease) Qualifiers: COPD type: unspecified COPD Qualified Code(s): J44.9 - Chronic obstructive pulmonary disease, unspecified (7) T2DM (type 2 diabetes mellitus) Qualifiers: Diabetes mellitus termination clerk insulin use: without mcc use Diabetes mellitus complication status: without complication Qualified Code(s): E11.9 - Type 2 diabetes mellitus without complications (8) Hypertension Qualifiers: Hypertension type: essential hypertension Qualified Code(s): I10 - Essential (primary) hypertension
[2018-02-03] MEDS: *HR* OxyCODONE/APAP 10/325 TABLET PO SCH ×2 (17:42→20:44)
--- NOTE | 2018-02-03 19:16 | Oncology Inp Progress Note ---
Date of Encounter: 02/03/18 Time of Encounter: 18:30 (1) Small cell lung cancer Current Visit: Yes Status: Acute Assessment and plan: Currently treated at [facility], Dr. Maya Diagnosed with SCLC 12/02/2017 Given his prior XRT history with his locally advanced squamous cell lung cancer , concurrent chemoradiation was not an option Instead, he underwent a CT guided ablation on 01/09/18 He is s/p cycle #1, Day #1 Carboplatin/Etoposide at [facility] on 01/20/2018 Further treatment to be continued on outpatient basis at [facility] once acute issues resolve He may benefit from Neupogen or dose reduction with future cycles, decision will be made by his treating oncologist (2) Pancytopenia Current Visit: Yes Status: Chronic Assessment and plan: Pancytopenia secondary to chemotherapy---S/P cycle #1 Carboplatin/Etoposide 01/20 Neutropenia----resolved, Neupogen discontinued He remains afebrile May consider de-escalating antibiotics now that ANC has improved- consider cipro /augmentin Oncology: Subj Interval history: Mr. Jackson is feeling well. His daughter is at bedside. He has been afebrile and denies fevers/chills. He denies pain. Denies nausea, vomiting or diarrhea. - Constitutional Vitals: Vital Signs Temp Pulse Resp BP Pulse Ox 02/03/18 15:55 98.3 F 102 20 149/64 92 02/03/18 11:29 98.9 F 69 18 132/77 95 Intake and Output 02/03/18 02/03/18 02/03/18 07:59 15:59 23:59 Intake Total 950 / 950 Output Total 700 / 700 Balance 950 / 675 -700 / -700 Intake: IV Fluids 950 / 950 0.9 % Sodium Chloride 1,000 ML 950 / 950 @ 125 mls/hr IVC .Q8H [facility] Rx#: [id number] Output: Urine 700 / 700 Other: Blood Glucose* 129 127 General appearance: cooperative, no acute distress, no febrile - Head Head exam: Present: atraumatic - ENT ENT exam: Present: mucous membranes moist - Respiratory Respiratory exam: Present: CTAB. Absent: respiratory distress - Cardiovascular Cardiovascular exam: Present: RRR, +S1, +S2 - GI/Abdominal GI/Abdominal exam: Present: normal bowel sounds, soft. Absent: tenderness - Extremities Exam Extremities exam: Present: normal inspection. Absent: calf tenderness - Neurological Exam Neurological exam: Present: alert, oriented X3, no focal deficits, strengths equal and symetr throughout - Psychiatric Psychiatric exam: Present: normal affect, normal mood - Skin Skin exam: Present: dry, intact, normal color, warm Oncology: Obj Data - Labs CBC & Chem 7: 02/04/18 05:12 02/04/18 05:12 - ABG Interpretation ABG results: PT/INR, D-dimer PT 12.7 Seconds (9.4-12.1) H 02/03/18 05:49 Consult Discharge Plan - Plan Referrals: Macario Yarbrough DO [Primary Care Provider] -
[2018-02-04] MEDS: 0.9 % Sodium Chloride 1,000 ML IVC SCH (01:31)
[2018-02-04] MEDS: cefTRIAXone 2,000 MG in Water for inj. (sterile) 20 ML 20 ML IVPB SCH (03:16)
[2018-02-04 05:46] LABS: Eosinophils % 0.9 %
[2018-02-04 05:47] LABS: Basophils % 0.3 %; Hemoglobin 8.9 g/dL (12.9-16.9); Immature Granulocytes % 1.5 % (0-4); Immature Platelets 3.5 % (1.1-6.1); Lymphocytes # 0.7 K/mcL (0.6-4.6); Lymphocytes % 20.8 %; Mean Corpuscular Hemoglobin 30.9 pg (28.0-33.3); Mean Corpuscular Volume 93.8 fL (83.0-100.0); Mean Platelet Volume 10.2 fL (9.4-12.4); Monocytes # 0.5 K/mcL (0.0-1.3); Monocytes % 14.3 %; Neutrophils # 2.1 K/mcL (1.6-8.9); Red Blood Count 2.88 M/mcL (4.19-5.50); Red Cell Distribution Width 14.1 % (11.5-14.5); Segmented Neutrophils % 62.2 %
[2018-02-04 05:52] LABS: Platelet Count 66 K/mcL (140-400)
[2018-02-04 06:05] LABS: BUN/Creatinine Ratio 14 (6-26); Blood Urea Nitrogen 9 mg/dL (8-23); Carbon Dioxide 20 mEq/L (23-29); Chloride 109 mEq/L (98-107); Glucose 112 mg/dL (70-105); Osmolality,Calculated 281 (280-300); Potassium 3.8 mEq/L (3.5-5.1); Sodium 136 mEq/L (136-145); eGFR For Non-African Americans > 60 (> 60)
[2018-02-04 07:27] VITALS: BP 149/77
--- NOTE | 2018-02-04 08:58 | Oncology Inp Consult Note ---
<Indigo Ruiz L - Last Filed: 02/04/18 08:56> Date of Encounter: 02/03/18 Time of Encounter: 18:00 Assessment and Plan (1) Small cell lung cancer Status: Acute Assessment and plan: Currently receiving treatment at [facility], Dr. Maya Diagnosed with SCLC 12/02/2017 Given his prior XRT history with his locally advanced squamous cell lung cancer , concurrent chemoradiation was not an option. Instead, he underwent a CT guided ablation on 01/09/18. He is s/p cycle #1, Day #1 Carboplatin/Etoposide at [facility] on 01/20/2018. He was admitted on 01/29/2018 with Neutropenic fever and HCAP, he left AMA, now re-admitted with meeting sepsis criteria and concern for PNA Further treatment to be continued on outpatient basis at [facility] once acute issues resolve May consider adding Neulasta with future cycles per treating oncologist recommendations (2) Pancytopenia Status: Chronic Assessment and plan: Secondary to chemotherapy, s/p Cycle #1 Carboplatin/Etoposide on 01/20/2018 at [facility] No Neutropenia He remains afebrile Plan: Continue to monitor PRBC for hgb <7 or symptomatic <8 Platelet transfusion for plt count <10 as inpatient or <20 as outpatient or for any s/s bleeding He is on day 2 IV rocephin-He does not appear septic at this time (pancytopenia chemo induced, mild tachycardia at times), nor neutropenic, imaging not convincing of PNA-consider de-escalation - Data of Consult Requesting Physician: Jovanny Palomino MD Primary Care Provider: Macario Yarbrough DO - Consult Narrative Reason for consult: Small cell lung cancer History of present illness: Mr. Arvizu is a 82 year old male currently under care of Dr. Maya at [facility]. 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 He had concurrent chemoradiation with weekly Taxol/Carboplatin and completed 5/7 weekly doses secondary to cytopenias. He completed radiotherapy end of October 2013. In September 2017, a Chest CT showed growing confluent nodules in the RLL. A PET confirmed that this area had FDG uptake (with no other areas). A biopsy on showed SCLC. Given his prior XRT history with his locally advanced squamous cell lung cancer, concurrent chemoradiation was not an option. Instead, he underwent a CT guided ablation on 01/09/18. He is s/p cycle #1, Day #1 Carboplatin/Etoposide at [facility] on 01/20/2018. Mr. Arvizu presented to ED via ambulance with weakness and near-syncope on 01/2018. Patient was working outside all day when he became weak and lightheaded. When EMS arrived, his BP was systolic of 50s, but normalized to 90s upon arrival to ED. CXR and chest CT concerning for pneumonia. Patient started on Vancomycin and Zosyn. Patient states he is a current smoker. Labs revealed pancytopenia with ANC 200 on admission, improved with Neupogen. During previous hospitalization (01/29/18) there was concern for HCAP and he received vancomycin, zosyn, and levaquin. Sputum and blood cultures containing E. coli (staph epi in blood culture most likely contaminant, pt doesn't have port or indwelling prosthetics). MRSA swab negative--vancomycin stopped. Legionella and strep pneumoniae antigens negative. Apparently, Mr. Arvizu left AMA around 01/30/2018. He presented to urgent care on 02/02/14 "not feeling well". He was transferred to [facility] for further evaluation. On arrival was afebrile, tachycardic HR 100, tachypneic RR 23, BP 139/79, SPO2 99%. Labwork noted for pancytopenia with WBC 3, Hgb 10.1, and platelets 56k. CXR showed masslike density of right lower lung without significant change. Was given vancomycin, zosyn, and Levaquin for concerns of HCAP. Initial EKG showed sinus rhythm, but time of admission he went into A. fib with RVR and heart rate reported to be as high as 150. He then spontaneously converted back to sinus. CTA chest negative for PE. He was admitted to hospitalist team for further evaluation and management of possible PNA. Past Med Surg Social Fam HX - Past Medical History Medical history: cancer, diabetes, hypertension Additional medical history: small cell lung cancer Psychiatric history: anxiety - Past Surgical History Surgical History: colostomy Additional surgical history: colon sx, back surgery - Social History Smoking Status: Current every day smoker Smokeless Tobacco Status: No Alcohol use: none Drug use: none - Family History Mother History Unknown: Yes Living Status: Hx Family Cardiac Disorders: Yes Medications and Allergies ALPRAZolam [Xanax 1 MG Tablet] 1 mg PO QID PRN 09/12/15 [History] Albuterol Sulfate [Albuterol Inhaler] 2 puff IH Q6HR PRN 09/12/15 [History] Atorvastatin Calcium [Lipitor] 80 mg PO DAILY 09/12/15 [History] Metformin HCl [Glucophage] 1,000 mg PO BID 09/12/15 [History] Potassium Chloride [K-Tab ER] 10 meq PO BID 09/12/15 [History] Olmesartan Medoxomil [Benicar] 5 mg PO DAILY 01/29/18 [History] Oxycodone HCl/Acetaminophen [Endocet 10-325 mg Tablet] 1 tab PO 5XD 01/30/18 [ History] Tamsulosin [Flomax] 0.4 mg PO BID 01/30/18 [History] Tiotropium [Spiriva] 18 mcg PO DAILY 01/30/18 [History] Prochlorperazine Maleate [Compazine] 10 mg PO Q6HR 02/02/18 [History] Varenicline Tartrate [Chantix Continuing Months Pack] 1 each PO AD 02/02/18 [ History] Diltiazem CD (24hr) [Cardizem CD] 120 mg PO DAILY #30 cap.er.24h 02/04/18 [Rx] levoFLOXacin [Levaquin] 750 mg PO DAILY #5 tablet 02/04/18 [Rx] 3 Allergy/AdvReac Type Severity Reaction Status Date / Time No Known Allergies Allergy Verified 09/12/15 11:18 Constitutional: Present: anorexia, fatigue, weakness, weight loss. Absent: chills, fever(s) Eyes: Absent: change in vision Nose, mouth and throat: Absent: dysphagia, mouth lesions, mouth pain, odynophagia Cardiovascular: Absent: chest pain Respiratory: Present: cough, dyspnea Gastrointestinal: Absent: abdominal pain, constipation, diarrhea, nausea, vomiting Genitourinary: difficulty urinating Musculoskeletal: Present: muscle weakness Integumentary: Absent: wounds Neurological: Absent: focal weakness, frequent falls Psychiatric: Present: as per HPI Endocrine: Present: as per HPI Hematologic/Lymphatic: Present: as per HPI Oncology - Exam - Constitutional Vitals: Temp Pulse Resp BP Pulse Ox 98.1 F 99 18 149/77 95 10/16/18 07:22 02/04/18 07:22 02/04/18 07:22 02/04/18 07:22 02/04/18 07:22 General appearance: cooperative, no acute distress, no febrile - Head Head exam: Present: atraumatic - ENT ENT exam: Present: mucous membranes moist - Respiratory Respiratory exam: Present: CTAB. Absent: respiratory distress - Cardiovascular Cardiovascular exam: Present: RRR, +S1, +S2 - GI/Abdominal GI/Abdominal exam: Present: normal bowel sounds, soft. Absent: tenderness - Extremities Exam Extremities exam: Absent: calf tenderness - Neurological Exam Neurological exam: Present: alert, oriented X3, no focal deficits, strengths equal and symetr throughout - Psychiatric Psychiatric exam: Present: normal affect, normal mood - Skin Skin exam: Present: dry, intact, normal color, warm Consult Discharge Plan - Plan Referrals: Macario Yarbrough DO [Primary Care Provider] - 02/13/18 1:30 pm (Please follow up as schedule....) Prescriptions: Diltiazem CD (24hr) [Cardizem CD] 120 mg PO DAILY #30 cap.er.24h levoFLOXacin [Levaquin] 750 mg PO DAILY #5 tablet <Valentine Caballero S - Last Filed: 02/05/18 17:04> Date of Encounter: 02/03/18 - Data of Consult Requesting Physician: Jovanny Palomino MD Primary Care Provider: Macario Yarbrough DO - Consult Narrative History of present illness: Mr. Arvizu is a 82 year old male Oncology - Exam - Constitutional Vitals: Temp Pulse Resp BP Pulse Ox 98.1 F 99 18 149/77 95 02/04/18 07:22 02/04/18 07:22 02/04/18 07:22 02/04/18 07:22 02/04/18 07:22 Oncology - Results Labs: 3 02/04/18 02/04/18 02/04/18 07:46 05:12 05:12 WBC 3.4 L RBC 2.88 L Hgb 8.9 L Hct 27.0 L MCV 93.8 MCH 30.9 MCHC 33.0 RDW 14.1 Plt Count 66 L MPV 10.2 Immature Gran % 1.5 Seg Neutrophils % 62.2 Lymphocytes % 20.8 Monocytes % 14.3 Eosinophils % 0.9 Basophils % 0.3 Neutrophils # 2.1 Lymphocytes # 0.7 Monocytes # 0.5 Eosinophils # 0.0 Basophils # 0.0 Immature Plt Fraction 3.5 Sodium 136 Potassium 3.8 Chloride 109 H Carbon Dioxide 20 L BUN 9 Creatinine 0.64 L Est GFR ( Amer) > 60 Est GFR (Non-Af Amer) > 60 BUN/Creatinine Ratio 14 Glucose 112 H POC Glucose 119 H Calculated Osmolality 281 Calcium 8.0 L 3 02/03/18 02/03/18 02/03/18 20:39 16:45 11:35 WBC RBC Hgb Hct MCV MCH MCHC RDW Plt Count MPV Immature Gran % Seg Neutrophils % Lymphocytes % Monocytes % Eosinophils % Basophils % Neutrophils # Lymphocytes # Monocytes # Eosinophils # Basophils # Immature Plt Fraction Sodium Potassium Chloride Carbon Dioxide BUN Creatinine Est GFR ( Amer) Est GFR (Non-Af Amer) BUN/Creatinine Ratio Glucose POC Glucose 179 H 127 H 129 H Calculated Osmolality Calcium - Attending Attestation 1. Diagnosed with SCLC 12/02/2017 Given his prior XRT history with his locally advanced squamous cell lung cancer , concurrent chemoradiation was not an option. Instead, he underwent a CT guided ablation on 01/09/18. He is s/p cycle #1, Day #1 Carboplatin/Etoposide at [facility] on 01/20/2018. He was admitted on 01/29/2018 with Neutropenic fever and HCAP, he left AMA, now re-admitted with meeting sepsis criteria and concern for PNA Currently his counts have recovered. Hemoglobin 8.9 platelets around 66,000. Neutrophils normal at 2100 He may benefit from dose reduction/growth factor support with subsequent cycles Inpatient Charges Provider: Dr. Hemal Caballero Consult - Inpatient Medicare Only: [id number]
[2018-02-04] MEDS ORDERED: levoFLOXacin 750 MG TABLET PO SCH (09:00)
[2018-02-04] MEDS ORDERED: Diltiazem CD (24hr) 120 MG CAPSULE PO SCH (09:00)
[2018-02-04] MEDS: ALPRAZolam 1 MG TABLET PO PRN (09:21)
[2018-02-04] MEDS: *HR* OxyCODONE/APAP 10/325 TABLET PO SCH (09:21)
[2018-02-04] MEDS: Insulin LISPRO 300 UNITS/3 ML VIAL SQ SCH (09:22)
[2018-02-04] MEDS: Tiotropium 18 MCG inhalation IH SCH (10:37)
--- NOTE | 2018-02-04 10:48 | Discharge Summary ---
- NOTES TO OUTPATIENT PROVIDER Notes to Outpatient Provider: 82 year-old male with medical history of hypertension, type 2 diabetes mellitus, COPD, chronic respiratory failure on home oxygen, who was admitted for management of pneumonia as well as A. fib with RVR. He also had an associated history of difficulty voiding on arrival. The fever has since resolved, he has been afebrile for > 24 hours. Difficulty voiding he said to have resolved. There was no urinary tract infection. Chest x-ray was significant for lung mass which is chronic, pneumonia cannot be ruled out. He has chronic pancytopenia due to chemotherapy from cancer for which is stable in this admission. He is discharged home today on Levaquin for 5 more days, he is also admitted Cardizem long-acting. Atrial fibrillation with RVR. He is a poor candidate for anticoagulation due to history of cancer. His chronic medical problems such as diastolic CHF and colon cancer remains stable. Follow-up with primary care physician. Oxygen requirement is at baseline. Date of Encounter: 02/04/18 Time of Encounter: 10:44 - Discharge Diagnosis (1) COPD (chronic obstructive pulmonary disease) Priority: Secondary Status: Chronic Qualifiers: COPD type: unspecified COPD Qualified Code(s): J44.9 - Chronic obstructive pulmonary disease, unspecified (2) Hypertension Priority: Secondary Status: Chronic Qualifiers: Hypertension type: essential hypertension Qualified Code(s): I10 - Essential (primary) hypertension (3) Small cell lung cancer Priority: Secondary Status: Chronic (4) Fever Priority: Primary Status: Resolved Qualifiers: Fever type: unspecified Qualified Code(s): R50.9 - Fever, unspecified (5) Atrial fibrillation with RVR Priority: Primary Status: Resolved (6) Difficulty urinating Priority: Primary Status: Resolved (7) PAF (paroxysmal atrial fibrillation) Priority: Primary Status: Resolved (8) Pancytopenia Priority: Secondary Status: Chronic (9) T2DM (type 2 diabetes mellitus) Priority: Secondary Status: Chronic Qualifiers: Diabetes mellitus lobsterman insulin use: without nursing home use Diabetes mellitus complication status: without complication Qualified Code(s): E11.9 - Type 2 diabetes mellitus without complications Hospital course: Mr. Arvizu is a 82 year old male with medical history of hypertension, type 2 diabetes mellitus, COPD, chronic respiratory failure on home oxygen, who was admitted for management of pneumonia as well as A. fib with RVR. He also had an associated history of difficulty voiding on arrival. The fever has since resolved, he has been afebrile for > 24 hours. Difficulty voiding he said to have resolved. There was no urinary tract infection. Chest x-ray was significant for lung mass which is chronic, pneumonia cannot be ruled out. He has chronic pancytopenia due to chemotherapy from cancer for which is stable in this admission. He is discharged home today on Levaquin for 5 more days, he is also admitted Cardizem long-acting. Atrial fibrillation with RVR. He is a poor candidate for anticoagulation due to history of cancer. His chronic medical problems such as diastolic CHF and colon cancer remains stable. Follow- up with primary care physician. Oxygen requirement is at baseline. Smoking cessation counselling done for 3 mins Discharge discussed with: patient, nurse Time spent discussing smoking cessation with patient: 3 to 10 minutes - Time Spent with Patient Total time spent providing and/or coordinating discharge services: Less than 30 minutes - Discharge Medications Prescriptions: Diltiazem CD (24hr) [Cardizem CD] 120 mg PO DAILY #30 cap.er.24h levoFLOXacin [Levaquin] 750 mg PO DAILY #5 tablet Home Medications: ALPRAZolam [Xanax 1 MG Tablet] 1 mg PO QID PRN 09/12/15 [History] Albuterol Sulfate [Albuterol Inhaler] 2 puff IH Q6HR PRN 09/12/15 [History] Atorvastatin Calcium [Lipitor] 80 mg PO DAILY 09/12/15 [History] Metformin HCl [Glucophage] 1,000 mg PO BID 09/12/15 [History] Potassium Chloride [K-Tab ER] 10 meq PO BID 09/12/15 [History] Olmesartan Medoxomil [Benicar] 5 mg PO DAILY 01/29/18 [History] Oxycodone HCl/Acetaminophen [Endocet 10-325 mg Tablet] 1 tab PO 5XD 01/30/18 [ History] Tamsulosin [Flomax] 0.4 mg PO BID 01/30/18 [History] Tiotropium [Spiriva] 18 mcg PO DAILY 01/30/18 [History] Prochlorperazine Maleate [Compazine] 10 mg PO Q6HR 02/02/18 [History] Varenicline Tartrate [Chantix Continuing Months Pack] 1 each PO AD 02/02/18 [ History] Diltiazem CD (24hr) [Cardizem CD] 120 mg PO DAILY #30 cap.er.24h 02/04/18 [Rx] levoFLOXacin [Levaquin] 750 mg PO DAILY #5 tablet 02/04/18 [Rx] Allergies/Adverse Reactions: 3 Allergy/AdvReac Type Severity Reaction Status Date / Time No Known Allergies Allergy Verified 09/12/15 11:18 Date of admission: 02/03/18 10:53 Primary care physician: Macario Yarbrough DO Consults: 02/03/18 16:19 Consult to Oncology [CONS] Routine Consulting Provider: [facility] Reason for Consult: FEVER. RLL LUNG MASS/SMALL CELL LUNG CANCER. Time Notified: 16:20 Call Completed: Yes Discharging clinician: Jovanny Palomino Anticipated date of discharge: 02/04/18 - Constitutional Vitals: Temp Pulse Resp BP Pulse Ox 98.1 F 99 18 149/77 95 02/04/18 07:22 02/04/18 07:22 02/04/18 07:22 02/04/18 07:22 02/04/18 07:22 General appearance: Present: A&O X 3, pleasant, no acute distress Exam: Skin: Warm, normal color, no rash ENMT: Oral/pharyngeal mucosa is normal in appearance. Eyes: Sclera is white. There is no discharge from eyes. Respiratory: Normal breath sounds; no crackles or wheezes. CV: Heart is regular; no gallop or murmur. GI: Abdomen is soft and not tender. There is no palpable mass or visceromegaly. Neuro: There is no focal deficits. - Patient Status Disposition: Home, Self-Care Condition: Fair Functional capacity at discharge: independent ambulation Overall status at discharge: patient is progressing back to baseline - Discharge Instructions Follow Up With: Macario Yarbrough DO [Primary Care Provider] - - Diet and Activity Activity: resume usual activities as tolerated, wear oxygen at all times Diet: diabetic diet, low fat, low cholesterol, low salt diet
== END 2018-02-04 11:37 | disposition home or self-care (01) | DRG 193 ==
LOC: EMEROOARM 16:59 → 2ANU 16:59 → SUATTDRO 20:03 → 2ANU 21:24 → SUATTDRO 02-03 10:53
PROVIDERS: ADMIT Internal Medicine; ATTEND Internal Medicine